=== PATIENT | male | born 1960 | race Caucasian/White ===

== ENCOUNTER → 2016-04-12 | Outpatient (CLI) | payer OTHER, BC ==
[~2016-04-12] MED LIST: ALBUAER19 INH; ATOR-54 PO; DICL-201 PO; FLM4 PO; FLUT1INH INH; GABA-113 PO; GABA800T2 PO; GLC/500 PO; HYDR-5688 PO; IBUP-1050 PO; IPRASOL4 INH; LISI-787 PO; LISI10TA PO; OXYC-57 PO; PHEN-775 PO; PHEN-876 PO; POTA20TA16 PO; PRLSR20 PO; SPRIN/30 INH; TAMS0.4C38 PO; VNTHFA/IN INH
--- NOTE | 2016-04-12 14:44 | DIAGNOSTIC IMAGING REPORT ---
CT SCAN OF THE CHEST WITHOUT IV CONTRAST CLINICAL HISTORY: Bronchitis. Asthma. COMPARISON STUDY: Chest CT dated 10/31/2005. TECHNIQUE: CT scan of the thorax was performed from the thoracic inlet to the upper abdomen. Images are reviewed in the axial, sagittal, and coronal planes. IV contrast was not administered for this examination as per the referring clinician. CT DOSE: 756.50 mGycm FINDINGS: Thyroid: Imaged portions of the thyroid gland are normal in size and attenuation. Thoracic aorta: There is atherosclerotic calcification of the thoracic aorta, which is normal in caliber and demonstrates standard 3-vessel arch anatomy. Heart: The heart is normal in size and there is trace pericardial fluid. The coronary arteries an aortic valve leaflets are densely calcified. The pulmonary trunk is normal in caliber. Lungs and pleural spaces: Emphysematous change is noted. There is no airspace consolidation or pleural effusion. The trachea and central airways are clear. There are scattered calcified granulomas. Mild mucous plugging is noted in the left lower lobe. Mediastinum: There is no mediastinal lymphadenopathy. Calcification containing mediastinal lymph nodes are observed. Shonna: Not well assessed without IV contrast. Axillae: There is no axillary lymphadenopathy. Upper abdomen: There is a tiny hiatal hernia. Calcified granulomas are noted in the spleen. A 2.5 cm cyst is noted in the partially imaged left kidney. Skeletal structures: No lytic or blastic bony lesions are seen. Arthritic changes present in both shoulders. Calcific tendinopathy is noted bilaterally. IMPRESSION: 1. Emphysema. 2. There is no airspace consolidation or pleural effusion. 3. Mild mucous plugging is noted in the left lower lobe. 4. Additional findings as above. Electronically signed by: Paul Reynoso M.D. 04/12/2016 2:43 PM Dictated Date/Time: 04/12/2016 2:38 PM
== END | disposition home or self-care (01) ==
LOC: C.CTS 13:44
PROVIDERS: ATTEND Internal Medicine Pulmonary Disease
DX: J40 Bronchitis, not specified as acute or chronic (principal); J45.909 Unspecified asthma, uncomplicated; R05 Cough; J43.9 Emphysema, unspecified

== ENCOUNTER 2016-09-28 13:56 | Emergency (ER) | payer OTHER ==
[~2016-09-28] VITALS: Ht 170.2 cm; Wt 110.4 kg
[~2016-09-28 13:56] MED LIST changes: -FLM4 PO; -FLUT1INH INH; -GABA800T2 PO; -HYDR-5688 PO; -IBUP-1050 PO; -LISI10TA PO; -OXYC-57 PO; -PHEN-775 PO; -PHEN-876 PO; -PRLSR20 PO; -SPRIN/30 INH; -TAMS0.4C38 PO; -VNTHFA/IN INH
[2016-09-28 14:00] VITALS: TEMP 36.6; Ht 170.2 cm; Wt 110.4 kg
[2016-09-28] MEDS ORDERED: SODIUM CHLORIDE 0.9% 1000ML 1,000 ML IV STA (14:19)
[2016-09-28] MEDS ORDERED: ONDANSETRON INJ 2 MG/ML 2 ML VIAL IV STA (14:19)
[2016-09-28] MEDS ORDERED: MoRPHine SULFATE 10 MG/ML CARP/VIAL IV STA (14:19)
[2016-09-28 14:44] LABS: BASO % 0.6 %; BASO ABS # 0.07 K/uL (0-0.2); COMPLETE YES; EOS % 2.5 %; HEMATOCRIT 47.6 % (42-52); IG% 0.3 %; LYMPH % 22.3 %; LYMPH ABS # 2.63 K/uL (1.2-3.4); MEAN CELL VOLUME 97.3 fL (80-100); MEAN CORPUSCULAR HEMOGLOBIN 33.3 pg (25-34); MEAN CORPUSCULAR HGB CONC 34.2 g/dl (32-36); MEAN PLATELET VOLUME 9.8 fL (7.4-10.4); MONO % 14.9 %; NEUT % 59.4 %; PLATELET COUNT 225 K/uL (130-400); RED BLOOD COUNT 4.89 M/uL (4.7-6.1); WHITE BLOOD COUNT 11.82 K/uL (4.8-10.8)
[2016-09-28 14:48] LABS: URINE APPEARANCE CLEAR (CLEAR); URINE BILIRUBIN NEG (NEG); URINE COLOR YELLOW; URINE EPITHELIAL CELL AUTO 0-5 /lpf (0-5); URINE NITRITE NEG (NEG); URINE PH 6.5 (4.5-7.5); URINE SPECIFIC GRAVITY 1.012 (1.000-1.030); UROBILINOGEN NEG (NEG)
[2016-09-28 14:50] LABS: MANUAL MICROSCOPIC REQUIRED? NO; REVIEW REQ? NO
[2016-09-28 15:00] LABS: BUN/CREATININE RATIO 8.9 (10-20); CALCIUM 9.5 mg/dl (8.5-10.1); CREATININE 1.4 mg/dl (0.60-1.40); POTASSIUM 3.3 mmol/L (3.5-5.1)
--- NOTE | 2016-09-28 15:01 | DIAGNOSTIC IMAGING REPORT ---
ABD/PELVIS WITHOUT FOR STONE HISTORY: 56 years-old Male acute bilateral flank pain with hematuria. COMPARISON: CT abdomen and pelvis 08/27/2012 TECHNIQUE: Multiple axial CT images of the abdomen and pelvis were obtained without contrast. A dose lowering technique was used consistent with the principals of FREDERIC. FINDINGS: Lung bases are generally clear. There is no pneumoperitoneum. Coronary arterial calcifications are noted in addition to aortic annulus calcifications. There is diffuse fatty infiltration of the liver noted along with hepatosteatosis. 9 x 12 mm low attenuating lesion of the inferior right hepatic lobe in a subserosal location is noted, nonspecific and unchanged statistically favoring a cyst or hemangioma. Prior cholecystectomy. Scattered calcifications throughout the splenic parenchyma suggest prior hematogenous granulomatous disease. Pancreas and adrenal glands are unremarkable. Innumerable cystic lesions throughout the kidneys are seen, not well-characterized on this noncontrast study. These findings appear similar from comparison. Hyperattenuating lesion of the interpolar left kidney is again seen. Multiple renal calculi are present bilaterally, largest of which involves the superior pole left kidney, 1.4 x 2.3 cm. There is a linear 4 x 2 x 4 mm calculus of the distal left ureter just a few centimeters proximal to the left ureterovesicular junction causing mild left-sided ureteral dilation. No significant left-sided hydronephrosis. No right-sided ureteral calculi are identified. Urinary bladder is unremarkable. Prostate is mildly prominent in size. There is moderate atherosclerosis of the abdominal aorta. No bulky adenopathy. There is no bowel obstruction. Colon and appendix are unremarkable. The soft tissues are within normal limits. Prior posterior decompression and fusion is seen at L5-S1 with discectomy. IMPRESSION: 1. 4 x 2 x 4 mm linear calculus of the distal left ureter just a few centimeters proximal to the left ureterovesicular junction causes mild left-sided ureteral dilation without significant hydronephrosis. 2. Multiple additional bilateral renal calculi are present. 3. Multiple renal cysts redemonstrated, some of which are mildly complex. No significant change from comparison study. 4. Hepatomegaly with hepatosteatosis. 5. Prior cholecystectomy. The above report was generated using voice recognition software. It may contain grammatical, syntax or spelling errors. Electronically signed by: Oliverio Drake M.D. 09/28/2016 3:00 PM Dictated Date/Time: 09/28/2016 2:54 PM
[2016-09-28] MEDS ORDERED: FLUT1INH INH (15:03)
[2016-09-28] MEDS ORDERED: LISI10TA PO (15:03)
[2016-09-28] MEDS ORDERED: VNTHFA/IN INH (15:03)
[2016-09-28] MEDS ORDERED: SPRIN/30 INH (15:03)
[2016-09-28] MEDS ORDERED: HYDROmorphone INJ 1 MG/ML SYR IV STA (15:18)
[2016-09-28 16:00] VITALS: BP 139/80; PULSE 78; O2SAT 96
[2016-09-28] MEDS ORDERED: HYDR-5688 PO (16:25)
--- NOTE | 2016-09-28 17:00 | EMERGENCY ROOM VISIT NOTE ---
ED Visit Note First contact with patient: 14:04 Chief Complaint: Severe stomach pain. History of Present Illness: Mr. Arce is a 56 year-old white male who ambulates into the ED accompanied by his complaining of left flank pain. Historically patient reports kidney stones with lithotripsy and is status post cholecystectomy and 2 unspecified lumbar back surgeries. Patient reports a acute onset of left flank pain that started approximately 2 hours ago. Since that time the pain has been constant but has slightly waxed and waned in intensity. The pain is currently described as sharp. The pain is radiating throughout the left side of the abdomen and in towards the testicles. Patient has not identified any aggravating or alleviating factors related to the pain. He is taken [id number] anti-inflammatory medications without any relief of his discomfort. Associated with the pain there has been nausea but no vomiting. Patient denies fevers, chills, sweats, skin eruptions, skin color changes, upper respiratory tract symptoms, shortness of breath, chest pain, nausea, vomiting, diarrhea, constipation, rectal bleeding, black/tarry stools, urinary symptoms, hematuria, vaginal bleeding, genital paresthesias, bowel and bladder dysfunction, lower extremity weakness/numbness/tingling. Review of Systems: As noted above in history of present illness. All body systems were reviewed and found to be negative as noted above. Past Medical History: As previously noted, diabetes, hypertension, emphysema, sleep apnea, and status post unspecified knee surgery, parathyroid surgery, hernia surgery. Current Medications: Medications Dose Route/Sig Max Daily Dose Days Date Category Dose Instructions Ventolin Hfa (Albuterol) 200 Puffs/71055 Mcg Aers 2 Puffs INH Q4 PRN 09/28/16 Reported Spiriva Handihaler (Tiotropium [place]) 30 Puff/540 Mcg Aerp 1 Cap INH DAILY 09/28/16 Reported Breo Ellipta (Fluticasone Furoate-Vilanterol) 1 Inh Inh 1 Puff INH DAILY 09/28/16 Reported Prinivil (Lisinopril) 10 Mg Tab 10 Mg PO DAILY 09/28/16 Reported Klor-Con (Potassium Chloride) 20 Meq Tabcr 40 Meq PO DAILY 07/22/14 Reported Zestoretic 20MG/12.5MG (HCTZ/Lisinopril) Tab 1 Tab PO QAM 07/15/14 Reported Glucophage (Metformin Hcl) 500 Mg Tab 500 Mg PO QPM 07/15/14 Reported Glucophage (Metformin Hcl) 500 Mg Tab 250 Mg PO QAM 07/15/14 Reported Neurontin (Gabapentin) 300 Mg Cap 900 Mg PO TID 07/25/13 Reported Duoneb (Ipratropium-Albuterol) 3 Ml Nebu 1 Treatment INH QID PRN 06/13/13 Reported Lipitor (Atorvastatin) 20 Mg Tab 20 Mg PO HS 06/13/13 Reported Allergies to Medications: Fluticasone, Salmeterol. Social History: A shunt is not employed; he lives with his and feels safe in his home environment; he admits to tobacco use and denies alcohol use. Physical Examination: Vital Signs: Date Time Temp Pulse Resp B/P (MAP) Pulse Ox O2 Delivery O2 Flow Rate FiO2 09/28/16 16:00 78 16 139/80 96 Room Air 09/28/16 14:50 91 16 144/88 96 Room Air 09/28/16 14:27 84 09/28/16 14:00 36.6 92 20 170/101 93 Room Air GENERAL: 56-year-old male in mild to moderate distress due to pain, nontoxic- appearing, afebrile and hemodynamically stable. NEUROLOGICAL: Awake, alert and oriented to person, place and time. Answering questions appropriately and following commands. Normal gait. Good hand eye coordination. SKIN: Warm, dry and pink. No soft tissue eruptions or trauma noted. HEENT: Atraumatic and normocephalic. PERRLA. Sclera white and conjunctiva pink. Oral cavity moist and pink. Pharynx is nonerythematous or edematous. Speech normal. No lymphadenopathy. Trachea midline. No jugular venous distention. BACK: No tenderness over the bony spine. Mild left-sided CVA tenderness. THORAX: Lungs sounds are clear to auscultation and equal bilaterally with symmetrical chest wall. No wheezing, rales or rhonchi. No crepitus, tenderness , subcutaneous air or deformities noted. HEART: Regular rate and rhythm. No gallops, rubs or murmurs are appreciated. ABDOMEN: Protuberant and soft with moderate tenderness throughout the left side of the abdomen. Positive bowel sounds in all quadrants. No guarding, rigidity or organomegaly. EXTREMITIES: Moves all extremities well on command and with purpose. All distal neurovascular statuses are intact and equal bilaterally. ED Course: Patient is assessed as noted above. Laboratory Testing: Test 09/28/16 14:24 09/28/16 14:28 Range/Units Urine Color YELLOW Urine Appearance CLEAR CLEAR Urine pH 6.5 4.5-7.5 Urine Specific [place] 1.012 1.000-1.030 Urine Protein 1+ NEG Urine Glucose (UA) NEG NEG Urine Ketones NEG NEG Urine Occult Blood 2+ NEG Urine Nitrite NEG NEG Urine Bilirubin NEG NEG Urine Urobilinogen NEG NEG Urine Leukocyte Esterase NEG NEG Urine WBC (Auto) 1-5 0-5 /hpf Urine RBC (Auto) 0-4 0-4 /hpf Urine Hyaline Casts (Auto) 0 0-5 /lpf Urine Epithelial Cells (Auto) 0-5 0-5 /lpf Urine Bacteria (Auto) NEG NEG White Blood Count 11.82 4.8-10.8 K/uL Red Blood Count 4.89 4.7-6.1 M/uL Hemoglobin 16.3 14.0-18.0 g/dL Hematocrit 47.6 42-52 % Mean Corpuscular Volume 97.3 80-100 fL Mean Corpuscular Hemoglobin 33.3 25-34 pg Mean Corpuscular Hemoglobin Concent 34.2 32-36 g/dl Platelet Count 225 130-400 K/uL Mean Platelet Volume 9.8 7.4-10.4 fL Neutrophils (%) (Auto) 59.4 % Lymphocytes (%) (Auto) 22.3 % Monocytes (%) (Auto) 14.9 % Eosinophils (%) (Auto) 2.5 % Basophils (%) (Auto) 0.6 % Neutrophils # (Auto) 7.03 1.4-6.5 K/uL Lymphocytes # (Auto) 2.63 1.2-3.4 K/uL Monocytes # (Auto) 1.76 0.11-0.59 K/uL Eosinophils # (Auto) 0.30 0-0.5 K/uL Basophils # (Auto) 0.07 0-0.2 K/uL RDW Standard Deviation 50.2 36.4-46.3 fL RDW Coefficient of Variation 14.2 11.5-14.5 % Immature Granulocyte % (Auto) 0.3 % Immature Granulocyte # (Auto) 0.03 0.00-0.02 K/uL Sodium Level 137 136-145 mmol/L Potassium Level 3.3 3.5-5.1 mmol/L Chloride Level 101 98-107 mmol/L Carbon Dioxide Level 29 21-32 mmol/L Anion Gap 7.0 3-11 mmol/L Blood Urea Nitrogen 12 7-18 mg/dl Creatinine 1.40 0.60-1.40 mg/dl Est Creatinine Clear Calc Drug Dose 69.9 ml/min Estimated GFR () 64.6 Estimated GFR (Non- 55.8 BUN/Creatinine Ratio 8.9 10-20 Random Glucose 107 70-99 mg/dl Calcium Level 9.5 8.5-10.1 mg/dl Total Bilirubin 0.4 0.2-1 mg/dl Direct Bilirubin 0.1 0-0.2 mg/dl Aspartate Amino Transf (AST/SGOT) 18 15-37 U/L Alanine Aminotransferase (ALT/SGPT) 52 12-78 U/L Alkaline Phosphatase 131 45-117 U/L Total Protein 7.9 6.4-8.2 gm/dl Albumin 3.8 3.4-5.0 gm/dl Lipase 100 73-393 U/L Noncontrast Abdominal/Pelvic CT: Was reviewed by myself and read by the radiologist and shows 4 x 2 x 4 mm calculus in the distal left ureter causing mild ureteral via dictation without significant hydronephrosis. Multiple additional bilateral renal calculi, multiple renal cysts; no significant change from previous study, hepatomegaly with hepatosteatosis, and prior cholecystectomy. Patient was hydrated with normal saline and initially received 6 mg of morphine IV for pain and 4 mg of Zofran. Patient was reassessed multiple times during his stay in the emergency department. Patient reports ongoing pain and he was given 1 mg of the Dilaudid IV for pain. On reassessment he reported he was feeling much better. Patient's case was reviewed with Dr. Sorto; we agreed on diagnostic approach, treatment, disposition and plan. Patient was educated about today's findings and instructed on his treatment plan ; he verbalizes understanding and agreement with this plan. Clinical Impression: Left ureter calculus. Decision-Making: Initially my differential diagnosis I considered pyelonephritis , ureter calculus, musculoskeletal disorder, constipation, perforated viscus, diverticulitis, testicular torsion and other causes. Disposition: A shunt discharged home in stable condition accompanied by his ; prior to departure he was reassessed and subjectively reported he was feeling better and rated his discomfort 6/10. Plan: Patient was placed on a sliding pain scale of ibuprofen, acetaminophen and [place]. Patient was encouraged to stay well-hydrated with increased clear fluids and strain all urine and collect all stones for analysis. Patient was encouraged to follow-up with his urologist for definitive care and treatment. Patient was encouraged return ED for worsening/uncontrolled pain, fevers, grossly bloody urine, urinary burning or any new/concerning symptoms.
[2016-10-24] MEDS ORDERED: GABA800T2 PO (14:37)
[2016-10-24] MEDS ORDERED: PRLSR20 PO (14:43)
[2016-10-24] MEDS ORDERED: TAMS0.4C38 PO (14:43)
[2016-10-24] MEDS ORDERED: IBUP-1050 PO (14:49)
[2016-10-26] MEDS ORDERED: TAMS0.4C38 PO (11:44)
[2016-10-26] MEDS ORDERED: OXYC-57 PO (11:44)
[2016-10-26] MEDS ORDERED: PHEN-775 PO (11:44)
[2016-10-28] MEDS ORDERED: OXYC-57 PO (13:56)
[2016-10-28] MEDS ORDERED: PHEN-876 PO (13:56)
[2016-10-28] MEDS ORDERED: FLM4 PO (13:56)
[2016-11-09] MEDS ORDERED: PHEN-775 PO (08:58)
[2016-11-09] MEDS ORDERED: FLM4 PO (08:58)
[2016-11-09] MEDS ORDERED: OXYC-57 PO (08:58)
== END 2016-09-28 16:39 | disposition home or self-care (01) ==
LOC: C.EDB 13:57 → C.EDC 16:39
DX: N20.1 Calculus of ureter (principal); N20.0 Calculus of kidney; R16.0 Hepatomegaly, not elsewhere classified; K76.0 Fatty (change of) liver, not elsewhere classified; E11.9 Type 2 diabetes mellitus without complications; I10 Essential (primary) hypertension; J43.9 Emphysema, unspecified; G47.30 Sleep apnea, unspecified; F17.200 Nicotine dependence, unspecified, uncomplicated; Z87.442 Personal history of urinary calculi; Z79.84 Long term (current) use of oral hypoglycemic drugs

== ENCOUNTER → 2016-10-26 | Day surgery (SDC) | payer OTHER ==
[2016-10-24 14:37] VITALS: BMI 37.0
[~2016-10-26] VITALS: Ht 172.7 cm; Wt 111.8 kg
[~2016-10-26] MED LIST changes: -ALBUAER19 INH; +ALBUT/IPRATROP 3MG/0.5MG NEB 3 ML VIAL INH ONE; +ATROPINE SULFATE 0.1 MG/ML 5ML SYR IV PRN; +CEFAZOLIN 3000 MG/65 ML D5W IV SCH; +CONRAY 30% 150ML BOTTLE ONE; +DEXAMETHASONE SOD INJ 4 MG/ML VIAL ONE; -DICL-201 PO; +EpHEDrine SULFATE INJ 50 MG/ML AMP IV PRN; +FENTANYL CITRATE INJ 50 MCG/1 ML 2 ML VIAL ONE; +FLM4 PO; +FLUT1INH INH; -GABA-113 PO; +GABA800T2 PO; +INDOMETHACIN 50 MG SUPP PR ONE; +KETOROLAC TROMETHAMINE 30 MG/ML VIAL ONE; +LACTATED RINGER'S 1000ML 1,000 ML IV SCH; +LIDOCAINE HCL 2% 2 ML VIAL (20MG/ML) ONE; +LISI10TA PO; +MIDAZOLAM HCL 1 MG/ML 2ML VIAL ONE; +ONDANSETRON INJ 2 MG/ML 2 ML VIAL ONE; +OXYC-57 PO; +PHEN-775 PO; +PHEN-876 PO; +PHENYLEPHRINE 100MCG/ML 5ML SYR ONE; +PRLSR20 PO; +PROPOFOL IV EMULSION 10 MG/ML 20 ML VIAL IV ONE; +SPRIN/30 INH; +TAMS0.4C38 PO; +VNTHFA/IN INH
[2016-10-26 07:40] VITALS: BP 123/78; PULSE 90; TEMP 36.6; O2SAT 94; Ht 172.7 cm; Wt 111.8 kg
[2016-10-26 08:20] VITALS: PULSE 80; O2SAT 98
--- NOTE | 2016-10-26 09:43 | History and Physical ---
History & Physical Date Oct 26, 2016. Chief Complaint left ureteral and renal stones History of Present Illness The patient is a 56 year old male with complaints of left ureteral and renal stones. He has failed outpatient medical expulsive therapy. We plan left uscope laser litho basket stone extraction stent. Past Medical/Surgical History Medical Problems: (1) Cerebrovascular disease (2) Chronic back pain (3) Dyslipidemia (4) Essential hypertension (5) Gastroesophageal reflux disease (6) History of adenomatous polyp of colon (7) History of renal calculi (8) Hyperparathyroidism (9) Sciatica (10) Sleep apnea (11) Smoker (12) Umbilical hernia Surgical Problems: (1) Repair of umbilical hernia (2) s/p lumbar decompression / fusion (3) s/p parathyroidectomy (4) s/p repair umbilical hernia (5) Status post cholecystectomy Additional History Hepatic Disease: No Endocrine Disorder: No Kidney Disease: No Hypertension: Yes Heart Disease: Yes Bleeding Tendencies: No Infectious Diseases: No Allergies Coded Allergies: Fluticasone (Unverified Allergy, Unknown, throat and tongue swelling, 10/26) Salmeterol (Unverified Allergy, Unknown, throat and tongue swelling, ) Home Medications Scheduled Atorvastatin (Lipitor), 20 MG PO HS Fluticasone Furoate-Vilanterol (Breo Ellipta), 1 PUFF INH QAM Gabapentin (Neurontin), 800 MG PO TID Lisinopril (Prinivil), 5 MG PO QAM Lisinopril/Hctz (Zestoretic 20MG/12.5MG), 1 TAB PO QAM Metformin Hcl (Glucophage), 250 MG PO QAM Metformin Hcl (Glucophage), 500 MG PO QPM Omeprazole (Prilosec), 20 MG PO QAM Potassium Ext Rel (Klor-Con), 40 MEQ PO QPM Tamsulosin Hcl (Flomax), 0.4 MG PO QAM Tiotropium [place] (Spiriva Handihaler), 1 CAP INH QAM Scheduled PRN Albuterol Hfa (Ventolin Hfa), 2 PUFFS INH Q4 PRN for SOB/Wheezing Ipratropium-Albuterol (Duoneb), 1 TREATMENT INH QID PRN for PRN Physical Examination Skin: warm/dry Eyes: normal inspection Neck: trachea midline Respiratory/Chest: lungs clear, + pertinent finding (quiet breath sounds, + ) Cardiovascular: regular rate, rhythm, no edema Abdomen / GI: normal bowel sounds Addiitonal Comments: ne edema on extremities Diagnosis left ureteral and renal stones plan left ureteroscopy laser lithotripsy basket stone extraction stent placement 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
--- NOTE | 2016-10-26 11:27 | DIAGNOSTIC IMAGING REPORT ---
KUB CLINICAL HISTORY: LT CYSTO/LASER/STENT stent placement TECHNIQUE: Image intensifier COMPARISON STUDY: None FINDINGS: Image intensifier was used for placement of a left ureteral stent IMPRESSION: Left ureteral stent placement with image intensifier support The above report was generated using voice recognition software. It may contain grammatical, syntax or spelling errors. Electronically signed by: Esequiel Biggs M.D. 10/26/2016 11:26 AM Dictated Date/Time: 10/26/2016 11:26 AM
[2016-10-26] MEDS: FENTANYL CITRATE INJ 50 MCG/1 ML 2 ML VIAL IV PRN ×4 (11:41→11:57)
--- NOTE | 2016-10-26 11:43 | [facility] Operative Report ---
Operative Report Operative Date Oct 26, 2016. Pre-Operative Diagnosis Left ureteral and Renal Stones Post-Operative Diagnosis Left ureteral and Renal Stones Procedure(s) Performed Cystoscopy; Left Ureteroscopy; Laser Lithotripsy; Basket Stone Extraction; Stent Placement Surgeon Dr. Lynette Case Open End Spinning Operator Surgeon(s) none Estimated Blood Loss 2mL Findings flat cornflake shaped stone in left distal ureter, 3 large stones in left kidney Specimens A: Left Ureteral Stone Drains 6 fr 24 centimeter double J stent Anesthesia LMA Complication(s) None Disposition Recovery Room / PACU Indications obstructing left distal stones and several left renal stones Description of Procedure Patient was given general LMA anesthesia and placed in lithotomy position. His genitals were prepped and draped in sterile fashion. Time out held with team. I placed a 21 fr rigid cystoscope to bladder. The urethra is unremarkable. The prostate is moderately enlarged. The UOs are normal. I placed a stiff wire up left ureter to left kidney and do not see distal stone. I calibrated left UO with gentle passage of dual lumen into distal ureter. I then passed a bentson wire into kidney. I placed the flex ureteroscope over the green wire to distal ureter. I found his distal ureteral stone. It is shaped like a cornflake. We basket extracted it whole with 2.4 fr zero tip basket and dropped it in the bladder. I then replaced the bentson wire and placed a 12/14 36 centimeter ureteral access sheath to mid ureter. I then passed flex ureteroscope into kidney and used 200 micron holmium laser fiber to break 3 large stones (2 upper kidney, one lower kidey) into dozens of pieces. There seem to be some collections of milk of calcium in kidney as irrigant would turn very cloudy during laering now and again. I removed ureteroscope and sheath and placed a 24 centimeter 6 Fr double J stent easily. I rinsed the ureteral stone out of bladder and sent for analysis. I left bladder empty and concluded case. He transferred to recovery under my escort, in stable condition. Plan: Home today Pyridium for dysuria x 3 days flomax daily oral pain meds as needed repeat left ureteroscopy to remove stone fragments in 2 weeks ASA 3 clean contaminated case 20 seconds fluoro ancef antibiotic weatherization and housing inspector I attest to the content of the Intraoperative Record and any orders documented therein. Any exceptions are noted below.
--- NOTE | 2016-10-26 11:47 | Discharge Instructions ---
Discharge Instructions Date of Service Oct 26, 2016. Admission Reason for Admission: Kidney Stone Discharge Discharge Diagnosis / Problem: left kidney stones and ureteral stone Discharge Goals Goal(s): Decrease discomfort, Improve disease control Activity Recommendations Activity Limitations: resume your previous activity Lifting Limitations: none Exercise/Sports Limitations: none May Resume Sexual Activity: when tolerated Shower/Bathe: no limitations Driving or Machine Use: resume 1 day after discharge . Instructions / Follow-Up Instructions / Follow-Up in 2 weeks for more stone surgery left side Discharge Diet Recommended Diet: Regular Diet Procedures Procedures Performed: Cystoscopy; Left Ureteroscopy; Laser Lithotripsy; Basket Stone Extraction; Stent Placement Pending Studies Studies pending at discharge: no Medical Emergencies . Who to Call and When: Medical Emergencies: If at any time you feel your situation is an emergency, please call 911 immediately. . Non-Emergent Contact Non-Emergency issues call your: Urologist ([phone]) Call Non-Emergent contact if: temperature is above 100.5, your pain is not controlled . . "Provider Documentation" section prepared by Lucia Case. . VTE Core Measure Inpt VTE Proph given/why not?: SCD's [place] Drug Monitoring Program Search Results: patient reviewed within database, no issues identified
--- NOTE | 2016-10-26 12:12 | Anesthesiology Progress Note ---
Anesthesia Post Op Note Date & Time Oct 26, 2016 at 12:12 Vital Signs Pain Intensity: 3 Vital Signs Past 12 Hours Date Time Temp Pulse Resp B/P (MAP) Pulse Ox O2 Delivery O2 Flow Rate FiO2 10/26/16 12:05 66 18 141/86 97 Room Air 10/26/16 11:55 75 18 140/83 97 Room Air 10/26/16 11:45 69 18 127/71 100 Oxymask 10 10/26/16 11:35 36.8 78 18 134/73 100 Oxymask 10 10/26/16 11:26 36.8 85 18 137/78 94 Oxymask 10 10/26/16 07:40 36.6 90 18 123/78 (93) 94 Room Air Notes Mental Status: alert / awake / arousable, participated in evaluation Pt Amnestic to Procedure: Yes Nausea / Vomiting: adequately controlled Pain: adequately controlled Airway Patency, RR, SpO2: stable & adequate BP & HR: stable & adequate Hydration State: stable & adequate Anesthetic Complications: no major complications apparent
[2016-10-26 12:20] VITALS: BP 137/71; PULSE 70; TEMP 36.2; O2SAT 96
[2016-10-26 12:50] VITALS: BP 126/77; PULSE 76; TEMP 36.6; O2SAT 96
[2016-10-26 13:20] VITALS: BP 136/78; PULSE 81; TEMP 36.6; O2SAT 97
== END | disposition home or self-care (01) ==
LOC: C.ACU 07:22
PROVIDERS: ATTEND Urology
DX: N20.1 Calculus of ureter (principal); N20.0 Calculus of kidney; I10 Essential (primary) hypertension; G47.30 Sleep apnea, unspecified; F17.200 Nicotine dependence, unspecified, uncomplicated; K21.9 Gastro-esophageal reflux disease without esophagitis; E21.3 Hyperparathyroidism, unspecified; E78.5 Hyperlipidemia, unspecified; Z79.84 Long term (current) use of oral hypoglycemic drugs; Z87.442 Personal history of urinary calculi; J43.9 Emphysema, unspecified

== ENCOUNTER → 2016-11-09 | Day surgery (SDC) | payer OTHER ==
[2016-10-28 14:00] VITALS: BMI 37.0
[~2016-11-09] VITALS: Ht 172.7 cm; Wt 111.8 kg
[~2016-11-09] MED LIST changes: -ALBUT/IPRATROP 3MG/0.5MG NEB 3 ML VIAL INH ONE; +BELLADONNA/OPIUM SUPP 60 MG SUPP PR ONE; +CEFAZOLIN 2000 MG/60 ML D5W IV SCH; -CEFAZOLIN 3000 MG/65 ML D5W IV SCH; -DEXAMETHASONE SOD INJ 4 MG/ML VIAL ONE; -EpHEDrine SULFATE INJ 50 MG/ML AMP IV PRN; +FENTANYL CITRATE INJ 50 MCG/1 ML 2 ML VIAL IV PRN; +HYDROmorphone INJ 1 MG/ML SYR IV PRN; -INDOMETHACIN 50 MG SUPP PR ONE; +LABETALOL HCL IV 5 MG/ML 20ML IV PRN; +ONDANSETRON INJ 2 MG/ML 2 ML VIAL IV PRN; +PHENYLEPHRINE 100MCG/ML 5ML SYR IV PRN; -PHENYLEPHRINE 100MCG/ML 5ML SYR ONE; +PHENYLEPHRINE HCL INJ 10 MG/ML VIAL ONE; +PROMETHAZINE HCL INJ 12.5 MG in SODIUM CHLORIDE 0.9% 50ML 50 ML IV PRN; +SODIUM CHLORIDE 0.9% INJ 10 ML VIAL ONE; -TAMS0.4C38 PO
[2016-11-09 05:58] VITALS: BP 103/68; PULSE 93; TEMP 36.6; O2SAT 97; Ht 172.7 cm; Wt 111.8 kg
--- NOTE | 2016-11-09 07:09 | History and Physical ---
History & Physical Date Nov 09, 2016. Chief Complaint left kidney stones History of Present Illness The patient is a 56 year old male with complaints of left kidney stones. He is here for the second part of the stone removal on his left side. He has tolerated the stent poorly. KUB done last week shows stent in good position but many fragments along the upper ureter and in the kidney. Past Medical/Surgical History Medical Problems: (1) Cerebrovascular disease (2) Chronic back pain (3) Dyslipidemia (4) Essential hypertension (5) Gastroesophageal reflux disease (6) History of adenomatous polyp of colon (7) History of renal calculi (8) Hyperparathyroidism (9) Sciatica (10) Sleep apnea (11) Smoker (12) Umbilical hernia Surgical Problems: (1) Repair of umbilical hernia (2) s/p lumbar decompression / fusion (3) s/p parathyroidectomy (4) s/p repair umbilical hernia (5) Status post cholecystectomy Allergies Coded Allergies: Fluticasone (Unverified Allergy, Unknown, throat and tongue swelling, 11/09) Salmeterol (Unverified Allergy, Unknown, throat and tongue swelling, ) Home Medications Scheduled Atorvastatin (Lipitor), 20 MG PO HS Fluticasone Furoate-Vilanterol (Breo Ellipta), 1 PUFF INH QAM Gabapentin (Neurontin), 800 MG PO TID Lisinopril (Prinivil), 5 MG PO QAM Lisinopril/Hctz (Zestoretic 20MG/12.5MG), 1 TAB PO QAM Metformin Hcl (Glucophage), 250 MG PO QAM Metformin Hcl (Glucophage), 500 MG PO QPM Omeprazole (Prilosec), 20 MG PO QAM Potassium Ext Rel (Klor-Con), 40 MEQ PO QPM Tamsulosin HCl (Tamsulosin HCl), 1 CAP PO QAM Tiotropium [place] (Spiriva Handihaler), 1 CAP INH QAM Scheduled PRN Albuterol Hfa (Ventolin Hfa), 2 PUFFS INH Q4 PRN for SOB/Wheezing Ipratropium-Albuterol (Duoneb), 1 TREATMENT INH QID PRN for PRN Physical Examination Skin: warm/dry Eyes: normal inspection Neck: supple, trachea midline Respiratory/Chest: no respiratory distress, + pertinent finding (distant breth sounds. ) Cardiovascular: regular rate, rhythm Abdomen / GI: non tender Extremities: normal inspection, + pertinent finding (no edema no calf tenderness) Neurologic/Psych: alert, oriented x 3 Diagnosis left renal and ureteral stone fragments ASA Classification: ASA Class III Plan of Treatment plan cysto left ureteroscopy laser lithotripsy basket stone extraction stent exchange. ancef vehicle modification technician
--- NOTE | 2016-11-09 08:56 | [facility] Operative Report ---
Operative Report Operative Date Nov 09, 2016. Pre-Operative Diagnosis Left ureteral and renal stones Post-Operative Diagnosis same as pre-operative Procedure(s) Performed Cystoscopy, Left Ureteroscopy, Laser Lithotripsy, Basket Stone Extraction; Stent Exchange Surgeon Dr. Lucia Case Electrical Controls Assembler Surgeon(s) none Estimated Blood Loss 5ml Findings radio-opaque stones in left distal and upper ureter, small stones in kidney and a radio-opaque 5mm stone in the left lateral mid kidney apparently in a non visualized caliceal diverticulum. Fluids 1300mL Specimens Specimen A: Left ureteral stones Drains 6 Fr 24 centimeter double j stent Anesthesia LMA Complication(s) None Disposition Recovery Room / PACU Indications large left renal stones fragmented 2 weeks ago. We plan to complete stone removal today. Description of Procedure Patient was given general LMA anesthesia and placed in lithotomy position. His genitals were prepped and draped in sterile fashion. Time out held with team. I placed a 21 fr rigid cystoscope to bladder. The urethra is unremarkable. The prostate is moderately enlarged. The UOs are normal. I grasped left stent tip sand removed stent completely. I placed a stiff wire up left ureter and cannot get passed the cluster of stones in the upper ureter. I passed a 5 fr open ended and switched to a road runner which passed easily. I then passed the 5 fr to kidney and placed stiff wire to left kidney. I passed the flexible ureteroscope into the distal ureter along side the stiff wire a dozen times and removed all the distal ureteral fragments with a 1.9 fr zero tip basket. I then passed a road runner wire into kidney. I placed a 12/14 fr 36 centimeter ureteral access sheath over the road runner to the top of scarum. It passed well. I then passed the flexible ureteroscope into upper ureter and used a 2000 micron holmium laser to fragment the larger left upper ureteral stones. I used the 1.9 basket to remove all the upper ureteral fragments. I then examined the kidney and removed about a dozen pieces. One medial inferior calyx has some small stones I cant reach due to limits of deflextion of scope but they look to be easily passed. I removed ureteroscope and sheath slowly ensuring the ureter is stone free. I placed a 24 centimeter 6 Fr double J stent easily. I left bladder empty and concluded case. He transferred to recovery under my escort, in stable condition. Plan: Home today Pyridium for dysuria x 3 days flomax daily oral pain meds as needed stent removal in 1 week in office ASA 3 clean contaminated case 49 seconds fluoro ancef antibiotic best second jobs I attest to the content of the Intraoperative Record and any orders documented therein. Any exceptions are noted below.
--- NOTE | 2016-11-09 09:01 | Discharge Instructions ---
Discharge Instructions Date of Service Nov 09, 2016. Admission Reason for Admission: Kidney Stone Discharge Discharge Diagnosis / Problem: left kidney and ureteral stones Discharge Goals Goal(s): Decrease discomfort, Improve disease control Activity Recommendations Activity Limitations: resume your previous activity Lifting Limitations: none Exercise/Sports Limitations: none May Resume Sexual Activity: when tolerated Shower/Bathe: no limitations Driving or Machine Use: resume 1 day after discharge . Instructions / Follow-Up Instructions / Follow-Up urine will be bloody for days return to ER for fever over 100F Lie on your right side after drinking lots of fluid to float out the remaining tiny stone pieces left kidney. Have someone tab over the kidney to shake them loose. we will remove stent in about a week. Discharge Diet Recommended Diet: Regular Diet Fluid Restriction: None Procedures Procedures Performed: Cystoscopy, Left Ureteroscopy, Laser Lithotripsy, Basket Stone Extraction; Stent Exchange Pending Studies Studies pending at discharge: no Medical Emergencies . Who to Call and When: Medical Emergencies: If at any time you feel your situation is an emergency, please call 911 immediately. . Non-Emergent Contact Non-Emergency issues call your: Urologist ([phone]) Call Non-Emergent contact if: temperature is above 100.5 . . "Provider Documentation" section prepared by Lucia Case. . VTE Core Measure Inpt VTE Proph given/why not?: SCD's [place] Drug Monitoring Program Search Results: patient reviewed within database, no issues identified
--- NOTE | 2016-11-09 09:23 | Anesthesiology Progress Note ---
Anesthesia Post Op Note Date & Time Nov 09, 2016 at 09:23 Vital Signs Pain Intensity: 0 Vital Signs Past 12 Hours Date Time Temp Pulse Resp B/P (MAP) Pulse Ox O2 Delivery O2 Flow Rate FiO2 11/09/16 09:15 69 16 125/83 100 Oxymask 10 11/09/16 09:05 76 16 143/87 98 Oxymask 10 11/09/16 08:57 36.2 87 16 123/91 95 Oxymask 10 11/09/16 05:58 36.6 93 18 103/68 (80) 97 Room Air Notes Mental Status: alert / awake / arousable, participated in evaluation Pt Amnestic to Procedure: Yes Nausea / Vomiting: adequately controlled Pain: adequately controlled Airway Patency, RR, SpO2: stable & adequate BP & HR: stable & adequate Hydration State: stable & adequate Anesthetic Complications: no major complications apparent
[2016-11-09 10:05] VITALS: BP 108/69; PULSE 69; TEMP 36.2; O2SAT 98
[2016-11-09 10:30] VITALS: BP 119/75; PULSE 68; O2SAT 99
[2016-11-09 11:20] VITALS: BP 120/78; PULSE 70; TEMP 36.2; O2SAT 99
--- NOTE | 2016-11-09 14:29 | DIAGNOSTIC IMAGING REPORT ---
KUB HISTORY: CYSTO, LT, LITHOTRIPSY FLUOROSCOPY TIME: 49 seconds FINDINGS: 7 fluoroscopic spot images were submitted for review. Initial images demonstrate a catheter within the left ureter placed within a retrograde fashion. This is followed by lithotripsy of a left renal stone and placement of a ureteral stent. IMPRESSION: Fluoroscopy provided for left sided lithotripsy and placement of a left ureteral stent.. Electronically signed by: Parveen Montoya M.D. 11/09/2016 2:28 PM Dictated Date/Time: 11/09/2016 2:26 PM
== END | disposition home or self-care (01) ==
LOC: C.ACU 05:30
PROVIDERS: ATTEND Urology
DX: N20.2 Calculus of kidney with calculus of ureter (principal); I10 Essential (primary) hypertension; E78.5 Hyperlipidemia, unspecified; G47.30 Sleep apnea, unspecified; E21.3 Hyperparathyroidism, unspecified; F17.200 Nicotine dependence, unspecified, uncomplicated; Z86.010 Personal history of colon polyps; Z87.442 Personal history of urinary calculi; Z90.49 Acquired absence of other specified parts of digestive tract

== ENCOUNTER 2016-12-25 19:17 | Emergency (ER) | payer OTHER ==
[~2016-12-25] VITALS: Ht 162.6 cm; Wt 112.8 kg
[~2016-12-25 19:17] MED LIST changes: -ATROPINE SULFATE 0.1 MG/ML 5ML SYR IV PRN; -BELLADONNA/OPIUM SUPP 60 MG SUPP PR ONE; -CEFAZOLIN 2000 MG/60 ML D5W IV SCH; -CONRAY 30% 150ML BOTTLE ONE; -FENTANYL CITRATE INJ 50 MCG/1 ML 2 ML VIAL IV PRN; -FENTANYL CITRATE INJ 50 MCG/1 ML 2 ML VIAL ONE; -HYDROmorphone INJ 1 MG/ML SYR IV PRN; -KETOROLAC TROMETHAMINE 30 MG/ML VIAL ONE; -LABETALOL HCL IV 5 MG/ML 20ML IV PRN; -LACTATED RINGER'S 1000ML 1,000 ML IV SCH; -LIDOCAINE HCL 2% 2 ML VIAL (20MG/ML) ONE; -MIDAZOLAM HCL 1 MG/ML 2ML VIAL ONE; -ONDANSETRON INJ 2 MG/ML 2 ML VIAL IV PRN; -ONDANSETRON INJ 2 MG/ML 2 ML VIAL ONE; -PHEN-775 PO; -PHEN-876 PO; -PHENYLEPHRINE 100MCG/ML 5ML SYR IV PRN; -PHENYLEPHRINE HCL INJ 10 MG/ML VIAL ONE; -PROMETHAZINE HCL INJ 12.5 MG in SODIUM CHLORIDE 0.9% 50ML 50 ML IV PRN; -PROPOFOL IV EMULSION 10 MG/ML 20 ML VIAL IV ONE; -SODIUM CHLORIDE 0.9% INJ 10 ML VIAL ONE
[2016-12-25 19:20] VITALS: TEMP 36.4; Ht 162.6 cm; Wt 112.8 kg
[2016-12-25] MEDS ORDERED: KETOROLAC TROMETHAMINE 60 MG/2 ML VIAL IM STA (19:40)
[2016-12-25] MEDS ORDERED: FLEXERIL HOME PACK 10 MG VIAL PO ONE (19:45)
[2016-12-25] MEDS ORDERED: KETOROLAC TROMETHAMINE 30 MG/ML VIAL ONE (19:53)
--- NOTE | 2016-12-25 20:24 | DIAGNOSTIC IMAGING REPORT ---
RIGHT SHOULDER 3 VIEWS HISTORY: right shoulder pain COMPARISON: None. FINDINGS: There is no fracture or dislocation. The right clavicle is intact. Moderate AC joint arthrosis. Mild osteoarthritis at the glenohumeral joint. A few small calcifications at the supraspinatus tendon. No radiopaque foreign bodies. IMPRESSION: 1. No acute fracture or dislocation within the right shoulder. 2. Supraspinatus calcific tendinitis. 3. Degenerative changes as described above. Electronically signed by: Parveen Montoya M.D. 12/25/2016 8:23 PM Dictated Date/Time: 12/25/2016 8:22 PM
--- NOTE | 2016-12-25 20:40 | EMERGENCY ROOM VISIT NOTE ---
ED Visit Note First contact with patient: 19:30 Patient was seen by our PA/LIBRARIAN ASSISTANT. I was involved in the patient's care and did evaluate the patient myself. I was involved in the care throughout the ER stay. The patient presents with right shoulder pain. Films show possible calcific tendinitis. The patient will be treated conservatively and will see orthopedics in a few days. If not improving, he may require a shoulder joint injection through the orthopedic services.
[2016-12-25] MEDS ORDERED: CYCL10TA6 PO (20:41)
--- NOTE | 2016-12-25 20:43 | EMERGENCY ROOM VISIT NOTE ---
ED Visit Note First contact with patient: 19:30 CHIEF COMPLAINT: Right shoulder pain HISTORY OF PRESENT ILLNESS: This 56-year-old male patient presents to the emergency department, ambulatory, complaining of pain in the right shoulder again spontaneously. The patient states approximately 5 days ago, he awoke in the morning complaining of significant severe right shoulder pain. He states this has happened in the past from sleeping incorrectly. He has been taking ibuprofen and Tylenol to help with the pain, without relief. There is limitation of motion of the arm because of the pain. The pain is moderate, constant and increases with motion of the hand and arm. The patient states the pain is constant, sharp, and 10/10. No previous significant previous shoulder disease or injury. No numbness or tingling. No neck or back pain. No chest pain or shortness of breath. No abdominal pain or nausea/vomiting. No cough. REVIEW OF SYSTEMS: A 6 system review of systems was performed with positives and pertinent negatives in the HPI. ALLERGIES: Advair MEDICATIONS: Albuterol, atorvastatin, Breo, gabapentin, DuoNeb, lisinopril, HCTZ , metformin, omeprazole, potassium, tamsulosin, Spiriva PMH: Hypertension, diabetes, COPD, chronic kidney disease SOCIAL HISTORY: Patient lives locally with family. He denies drug, alcohol use. The patient smokes 1-2 packs of cigarettes per day. PHYSICAL EXAM: Vital Signs: Reviewed nurse's notes, vital signs stable. GENERAL : This is a 56-year-old obese white male, in no acute distress, but appears to be in pain, well-developed, well-nourished. MUSCULOSKELETAL: There is no deformity in the contour of the right shoulder and there are no kevin deformities noted. There is no sulcus sign. There is tenderness over the entire shoulder region, which is difficult to localize. The patient's range of motion is severely limited due to pain. Supraspinatus strength 5/5. There is no clavicle tenderness. No tenderness of the humerus, elbow, wrist, or hand. Science Professor strength 5/5. Radial pulse 2+. NECK: No tenderness to palpation over the cervical spine. HEART: Regular rate and rhythm without murmurs gallops or rubs. LUNGS: Clear to auscultation bilaterally without wheezes, rales or rhonchi. No accessory muscle use. No retractions. NEURO: The patient is alert and oriented to person, place, and time. Normal sensation to light and sharp touch. Capillary refill less than 2 seconds. RADIOLOGY: X-Ray Right Shoulder: RIGHT SHOULDER 3 VIEWS HISTORY: right shoulder pain COMPARISON: None. FINDINGS: There is no fracture or dislocation. The right clavicle is intact. Moderate AC joint arthrosis. Mild osteoarthritis at the glenohumeral joint. A few small calcifications at the supraspinatus tendon. No radiopaque foreign bodies. IMPRESSION: 1. No acute fracture or dislocation within the right shoulder. 2. Supraspinatus calcific tendinitis. 3. Degenerative changes as described above. Electronically signed by: Parveen Montoya M.D. 12/25/2016 8:23 PM Dictated Date/Time: 12/25/2016 8:22 PM EMERGENCY DEPARTMENT COURSE: I examined the patient. An X-ray of the right shoulder was reviewed by myself and radiologist and shows calcific tendinitis of the supraspinatus tendon. The patient was given 30 mg Toradol IM and did note slight improvement in his symptoms. He was given a home pack of Flexeril to help with any muscle spasms. The patient was encouraged to follow up outpatient with orthopedics. I did speak with Dr. Addison regarding the patient' s symptoms and x-ray. He did recommend an arm sling as well as conservative management. Dr. Addison did see and evaluate the patient independently. Discharge instructions were reviewed and the patient was discharged home in good condition. I attest that I have personally reviewed the patient's current medication list. Patient was found to have normal blood pressure on screening and does not require follow-up. DIFFERENTIAL DIAGNOSIS: Fracture, contusion, sprain, strain, tendonitis, malignancy, and others DIAGNOSIS: Calcific tendinitis of the right shoulder Problem List Medical Problems: (1) Cerebrovascular disease Permanent Comment: MRI 06/14/10 small vessel ischemic changes noted Status: Chronic (2) Chronic back pain Status: Chronic (3) Dyslipidemia Status: Chronic (4) Essential hypertension Status: Chronic (5) Gastroesophageal reflux disease Status: Chronic (6) History of adenomatous polyp of colon Status: Chronic (7) History of renal calculi Status: Chronic (8) Hyperparathyroidism Permanent Comment: parathyroid adenoma- resected Status: Resolved (9) Sciatica Status: Chronic (10) Sleep apnea Permanent Comment: can't tolerate CPAP/BiPAP Status: Chronic (11) Smoker Status: Chronic (12) Umbilical hernia Status: Resolved Surgical Problems: (1) Repair of umbilical hernia Status: Chronic (2) s/p lumbar decompression / fusion Status: Chronic (3) s/p parathyroidectomy Permanent Comment: [facility] 07/22/11 Dr. Rose Status: Chronic (4) s/p repair umbilical hernia Status: Chronic (5) Status post cholecystectomy Permanent Comment: Dr. Diamond 2012 Status: Chronic Current/Historical Medications Scheduled Atorvastatin (Lipitor), 20 MG PO HS Fluticasone Furoate-Vilanterol (Breo Ellipta), 1 PUFF INH QAM Gabapentin (Neurontin), 800 MG PO TID Lisinopril (Prinivil), 5 MG PO QAM Lisinopril/Hctz (Zestoretic 20MG/12.5MG), 1 TAB PO QAM Metformin Hcl (Glucophage), 250 MG PO QAM Metformin Hcl (Glucophage), 500 MG PO QPM Omeprazole (Prilosec), 20 MG PO QAM Potassium Ext Rel (Klor-Con), 40 MEQ PO QPM Tamsulosin HCl (Tamsulosin HCl), 1 CAP PO QAM Tiotropium [place] (Spiriva Handihaler), 1 CAP INH QAM Scheduled PRN Albuterol Hfa (Ventolin Hfa), 2 PUFFS INH Q4 PRN for SOB/Wheezing Cyclobenzaprine Hcl (Flexeril), 1 TAB PO TID PRN for Muscle Spasms Ipratropium-Albuterol (Duoneb), 1 TREATMENT INH QID PRN for PRN Oxycodone/Acetaminophen 5MG/325MG (Percocet 5MG/325MG), 1 TABLET PO Q6H PRN for Pain Allergies Coded Allergies: Fluticasone (Unverified Allergy, Unknown, throat and tongue swelling, 11/09) Salmeterol (Unverified Allergy, Unknown, throat and tongue swelling, ) Vital Signs Date Time Temp Pulse Resp B/P (MAP) Pulse Ox O2 Delivery O2 Flow Rate FiO2 12/25/16 19:20 36.4 103 20 162/96 93 Room Air Medications Administered Medications (Trade) Dose Ordered Sig/Edith Route Start Time Stop Time Status Last Admin Dose Admin Cyclobenzaprine HCl (FLEXERIL 10MG Home Pack) 1 homepack UD ONCE PO 12/25/16 19:45 12/25/16 19:46 DC 12/25/16 19:55 1 HOMEPACK Ketorolac Tromethamine (Toradol Inj) 30 mg STK-MED ONCE .ROUTE 12/25/16 19:53 12/25/16 19:54 DC 12/25/16 19:55 30 MG Departure Information Impression Primary Impression: Right shoulder pain Additional Impressions: Muscle spasm of right shoulder Calcific tendonitis of right shoulder Dispostion Home / Self-Care Condition GOOD Prescriptions Cyclobenzaprine Hcl (FLEXERIL) 10 Mg Tab 1 TAB PO TID Y for Muscle Spasms, #12 TAB Prov: Jodie Cortes PA-C 12/25/16 Referrals Effie Hendricks D.O. (PCP) [facility] Patient Instructions ED Tendinitis Calcific, [facility] Additional Instructions You have been treated in the Emergency Department for Shoulder Pain. For pain control, you can use the following [id number] medicines (if >12 yo): Ibuprofen(Motrin, Advil) may be used for fever or pain. Use 400-600mg every six hours as needed. Take with food. Avoid using more than 2400mg or whatever maximum your doctor has given you, in a 24 hour period. Do not use 2400mg per day for more than three consecutive days without physician direction. Prolonged inappropriate use can lead to stomach upset or ulcers. (AND/OR) Acetaminophen(Tylenol) may be used for fever or pain. Use 500-1000mg every six hours as needed. Avoid using more than 3000mg in a 24 hour period. You have been prescribed Flexeril (cyclobenzaprine) 1 tabs orally, three times per day. Do NOT exceed 30 mg (3 tabs) per day. Take your first dose at bedtime as it can make you drowsy. Always take all medications as prescribed. If this is a recent injury (<24 hrs), ice can be applied to the area of pain for the first 3 days to help decrease pain and inflammation. You have been provided the number for an Orthopaedic Surgeon. You should call this number as soon as possible to establish a follow-up visit from today's Emergency Department visit. Use the arm sling for comfort. Return to the Emergency Department if your current symptoms worsen despite treatment course outlined above, or if you develop any of the following symptoms : intractable pain despite aforementioned treatment course or new onset of numbness or tingling of the arm. Problem Qualifiers Primary Impression: Right shoulder pain Chronicity: acute Qualified Codes: M25.511 - Pain in right shoulder
[2016-12-25] MEDS ORDERED: OMEP20CA9 PO (20:49)
[2016-12-25] MEDS ORDERED: TIOT1SPR INH (20:49)
[2016-12-25] MEDS ORDERED: GLC500 PO (20:49)
[2016-12-25] MEDS ORDERED: FLUT1INH7 INH (20:49)
[2016-12-25] MEDS ORDERED: LPT/20 PO (20:49)
[2016-12-25] MEDS ORDERED: POTA20TA13 PO (20:49)
[2016-12-25] MEDS ORDERED: NRN800 PO (20:49)
[2016-12-25] MEDS ORDERED: LISI-461 PO (20:49)
[2016-12-25 20:53] VITALS: BP 161/83; PULSE 100; O2SAT 94
== END 2016-12-25 20:54 | disposition home or self-care (01) ==
LOC: C.EDB 19:18 → C.EDD 20:54
DX: M25.511 Pain in right shoulder (principal); M75.31 Calcific tendinitis of right shoulder; M62.838 Other muscle spasm; I12.9 Hypertensive chronic kidney disease with stage 1 through stage 4 chronic kidney disease, or unspecified chronic kidney disease; E11.9 Type 2 diabetes mellitus without complications; J44.9 Chronic obstructive pulmonary disease, unspecified; N18.9 Chronic kidney disease, unspecified; F17.210 Nicotine dependence, cigarettes, uncomplicated; E78.5 Hyperlipidemia, unspecified; K21.9 Gastro-esophageal reflux disease without esophagitis; Z87.442 Personal history of urinary calculi; Z79.899 Other long term (current) drug therapy

== ENCOUNTER 2017-01-09 08:20 | Day surgery (SDC) | payer OTHER ==
--- NOTE | 2016-12-13 09:52 | HISTORY & PHYSICAL EXAMINATION ---
DATE OF ADMISSION: 12/21/2016 PRIMARY CARE PHYSICIAN: Dr. Effie Hendricks. HISTORY OF PRESENT ILLNESS: This is a 56-year-old male who is followed in the outpatient office for history of chronic bronchitis and pulmonary emphysema. Other relevant past medical history includes obstructive sleep apnea (on CPAP with oxygen, noncompliant with use), CKD 3, DM2, left lower extremity deep venous thrombosis (childhood/traumatic), and obesity. He is allergic to Advair. He is a current smoker, 2 packs per day x41 years with history of secondhand exposure. 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 The patient was initially seen in the outpatient office March 2016 with history of recurrent bronchitis symptomatic of cough and wheeze lasting several weeks in duration alleviated temporarily with steroid and antibiotic. In between these episodes, he was quite active with activity such as chopping wood without any limiting respiratory symptoms. Symptoms improved partially with Breo then gradually returned and progressed in the form of daily nonproductive cough which has been present since the winter of 2015. He denies any association with meals, body position, or activity. Over the past 1 year, he has been prescribed several rounds of antibiotic and steroids (azithromycin and levofloxacin). Additionally, he has been prescribed Breo 200/25, Incruse, and then more recently Spiriva. Symptoms are temporarily alleviated again with antibiotic and steroids; however, his nonproductive cough and wheeze persists without associated fevers, chills, reflux, or sinus symptoms. He does use a nebulizer 1 time daily. He denies history of bronchoscopy completed in the past. CT of the chest April 2016 described emphysematous changes without consolidation or effusion. There were scattered calcified granulomas and mild mucus plugging in the left lower lobe. No adenopathy. Calcification containing mediastinal lymph nodes were observed with calcified granulomas in the spleen. PFTs April 2014 was consistent with mild small airway obstruction. Normal volumes and DLCO were preserved. On exam/interview in the outpatient office he reported that his symptoms remained status quo temporarily improved on antibiotic and steroids then recurrent. On his last visit, he had been doing well, but he had discontinued using his CPAP feeling that this was provocative of his breathing. His former sleep medicine physician was Dr. Link who is no longer practicing in the area. He denied any associated chest pain, fevers or chills. PAST MEDICAL HISTORY: 1. Chronic bronchitis. 2. Chronic GERD. 3. CKD 3. 4. Depression. 5. Dyslipidemia. 6. Hernia. 7. Hyperparathyroidism. 8. Hypertension. 9. Obesity. 10. Pulmonary emphysema. 11. Sleep apnea. 12. Vitamin D deficiency. 13. Left lower extremity DVT. PAST SURGICAL HISTORY: Cholecystectomy. FAMILY HISTORY: 1. Lung disease. 2. Malignant neoplasm of the breast. SOCIAL HISTORY: Current everyday smoker. ALLERGIES: Advair. CURRENT MEDICATIONS: 1. Breo 200/25: Inhale 1 puff daily. 2. Prednisone 10 mg oral tablet: Take 4 tablets for 2 days, then decrease by one-half tablet every 2 days until complete. 3. Saline solution: Use 1 vial via nebulizer in the mornings x3 as directed. 4. Albuterol sulfate inhalation nebulizer solution: Use 1 unit dose in nebulizer every 4 hours as needed. 5. Spiriva Respimat 2.5 mcg/ACT: Inhale 2 puffs once daily. 6. Ventolin HFA 108 mcg/ACT: Inhale 2 puffs every 4 hours as needed. 7. Flomax 0.4 mg oral capsule: Take as directed. 8. Gabapentin 600 mg oral tablet: Take 1 tablet 3 times daily. 9. Lipitor 20 mg oral tablet: Take 1 tablet daily as directed. 10. Hydrochlorothiazide 20/12.5 mg oral tablet: Take 1 tablet daily. 11. Metformin hydrochloride 500 mg oral tablet: Take 1/2 tablet in the morning and 1 tablet the evening. 12. Omeprazole 20 mg oral capsule delayed release: Take 1 capsule by mouth every other day. 13. Potassium chloride 10 mEq: Take 1 tablet twice daily. 14. Promethazine/codeine 6.25/10 mg per 5 mL oral syrup: Take 5-10 mL every 4 hours as needed for cough. PHYSICAL EXAMINATION: CONSTITUTIONAL: Well-developed, well-nourished, obese male. No acute distress. HEAD: Positive facial symmetry. EYES: EOMI, PERRLA. No conjunctival injection. MOUTH: Mallampati 3. No erythema, exudate, or postnasal drip visible. NECK: Trachea midline without adenopathy or masses. RESPIRATORY: Nonlabored respirations. Bronchial breath sounds in bilaterally apices. Good air movement at bases. No wheeze or rhonchi. CARDIOVASCULAR: Regular rate and rhythm. No murmurs, rubs or gallops. +2 radial pulses throughout. Less than 1 second capillary refill distally. ABDOMEN: Soft, active bowel sounds. INTEGUMENTARY: No rashes, ecchymosis. Tattoos on forearm. MUSCULOSKELETAL AND EXTREMITIES: Moving and developed symmetrically without any peripheral edema or calf tenderness. NEUROLOGIC: Alert and oriented. Data recall intact. Appropriate affect. REVIEW OF SYSTEMS: CONSTITUTIONAL: Denies fevers, malaise, chills or fatigue. EYES: Negative. EARS, NOSE, THROAT: As noted in HPI without any pharyngitis or vocal hoarseness. CARDIOVASCULAR: Denies chest pain, palpitations, or peripheral edema. RESPIRATORY: Positive for cough, wheeze, dyspnea on exertion but as noted in HPI. GASTROINTESTINAL: Negative. Denies heartburn. HEMATOLOGIC/LYMPHATIC: Negative. ASSESSMENT AND PLAN: A 56-year-old male is followed in the outpatient office for continuation of care of chronic cough. He does have recurrent episodes of exacerbation and required multiple courses of steroids and antibiotics over the past 1 year. He improves temporarily between these episodes. His radiographic studies do show evidence of mucous plugging. He does have a history of some difficulty with compliance, specifically with his CPAP as was previously managed by Dr. Link. At this time, given his recurrent exacerbation and history of mucous plugging on imaging will move forward with bronchoscopy/BAL which should be both diagnostic and therapeutic. Special attention made to the left lower lobe as this was previously problematic on his imaging but may require more aggressive lavage. I explained to him that this may or may not provide symptomatic relief; however, he is willing to move forward with this procedure. He should complete blood work within 30 days prior to procedure and follow up in the office post-testing to review clinical response and any results. BROOKE
[~2017-01-09] VITALS: Ht 170.2 cm; Wt 110.0 kg
[2017-01-09] VITALS (13 sets, daily range): BP systolic 120–154; BP diastolic 83–98; PULSE 88–98; TEMP 36.9–37.2; O2SAT 91–98; Ht 170.2 cm; Wt 110.0 kg
[~2017-01-09 08:20] MED LIST changes: -ATOR-54 PO; -FLM4 PO; -FLUT1INH INH; +FLUT1INH7 INH; -GABA800T2 PO; +GLC500 PO; +LISI-461 PO; -LISI10TA PO; +LPT/20 PO; +NRN800 PO; +OMEP20CA9 PO; +POTA20TA13 PO; -POTA20TA16 PO; -PRLSR20 PO; -SPRIN/30 INH; +TIOT1SPR INH
[2017-01-09] MEDS ORDERED: FENTANYL CITRATE 100 MCG 2 ML CARP IV ONE (08:21)
[2017-01-09] MEDS ORDERED: MIDAZOLAM HCL 1 MG/ML 2ML VIAL IV ONE (08:21)
[2017-01-09] MEDS ORDERED: LIDOCAINE HCL 2% LOCAL 50ML VIAL INFIL ONE (08:21)
--- NOTE | 2017-01-09 09:58 | History & Physical Bridge Note ---
H&P Re-Evaluation Bridge Note: I have examined the patient, reviewed the History & Physical and in the interval since the performance of the History & Physical I have noted the following changes of clinical significance: No changes noted
--- NOTE | 2017-01-09 09:59 | Procedure Note ---
Pre-Mod Sedation Assessment General Date of Moderate Sedation: Jan 09, 2017. Vital Signs: Vital Signs Past 12 Hours Date Time Temp Pulse Resp B/P (MAP) Pulse Ox O2 Delivery O2 Flow Rate FiO2 01/09/17 09:50 36.9 98 20 135/84 93 Room Air 01/09/17 09:05 36.9 98 20 135/84 (101) 93 Room Air Review Cardiovascular: regular rate, rhythm, no edema, no gallop, no JVD, no murmur Abdomen: normal bowel sounds, non tender, soft, no organomegaly, no pulsatile mass Lungs: chest non-tender, lungs clear, normal breath sounds Airway Class: II Pre-Sedation Airway Assessment Oral Cavity: Dentures Able to Visualize Vocal Cords: Yes Short Thick Neck: Yes Hx of Sleep Apnea: Yes Smoking Status: Current Every Day Smoker Mallampati Classification: Class II ASA Classification: Class II Procedure Planning Contraindications-for Mod Sed: None Notes The planned sedation has been discussed with the patient and consent obtained. I have identified the patient, determined the appropriateness of sedation and have assessed the patient immediately prior to the procedure. All medicine(s) and interventions are by my order.
[2017-01-09] MEDS ORDERED: NURSING VERBAL MED ORDER ONE ×2 (10:15→11:00)
[2017-01-09] MEDS ORDERED: DEXTROSE 5% 1000ML 1,000 ML IV SCH (10:30)
--- NOTE | 2017-01-09 11:06 | Procedure Note ---
Post-Moderate Sedation Plan General Date of Moderate Sedation Jan 09, 2017. Vital Signs: Vital Signs Past 12 Hours Date Time Temp Pulse Resp B/P (MAP) Pulse Ox O2 Delivery O2 Flow Rate FiO2 01/09/17 10:53 95 18 142/92 95 Mask 8.0 01/09/17 10:48 94 18 134/88 94 Mask 8.0 01/09/17 10:43 94 18 154/97 93 Mask 8.0 01/09/17 10:38 91 18 132/88 92 Mask 8.0 01/09/17 10:33 90 22 143/83 96 Mask 8.0 01/09/17 09:52 88 21 120/85 98 Mask 8.0 01/09/17 09:50 36.9 98 20 135/84 93 Room Air 01/09/17 09:05 36.9 98 20 135/84 (101) 93 Room Air Review - Discharge Plan Post Moderate Sedation Plan: On clinical assessment, the patient appears to have tolerated the conscious sedation without complications. Patient is recovering as anticipated. Patient will continue to be monitored by nursing and may be discharged when conscious sedation discharge criteria are met.
--- NOTE | 2017-01-09 11:06 | Bronchoscopy Procedure Note ---
Bronchoscopy Procedure Note Procedure: Bronchoscopy, conscious sedation, bronchial lavage right upper lobe RB1 Consent: Obtained through the patient placed into the chart Pre-procedural diagnosis: Chronic cough with associated bronchiectasis Post-procedural diagnosis: Chronic cough with associated bronchiectasis Start time: 8 End time: 1043 Total time: 15 minutes Analgesia: 2% liquid lidocaine: Via nebulizer 4% gel lidocaine: Via right naris 2% liquid lidocaine: Via bronchoscopy Sedation: Versed IV: 2 mg Fentanyl IV: 50 g Procedure: The Olympus video bronchoscope was used for this procedure and passed down through the right naris Right naris/posterior naris/posterior oropharynx: Notably erythematous throughout the upper airway Glottis: Diffuse erythema with notable cobblestoning Vocal cords: Proper abduction and abduction, diffuse erythema along the false will records Subglottis/trachea/Shey: Anatomically within normal limits, there is some erythema appreciated at the shey as well as the posterior membrane Right bronchial tree: Right mainstem bronchus: Anatomically within normal limits Right upper lobe: Anatomically within normal limits, mucus plugs appreciated in the RB1 subsegment, notable collapse of the right upper lobe during expiration Bronchus intermedius: Anatomically within normal limits Right middle lobe: Anatomically within normal limits Right lower lobe: Anatomically within normal limits, minimal mucus plugging Findings: Mucus plugging noted especially in the right upper lobe Left bronchial tree: Left mainstem bronchus: Anatomically within normal limits Left upper lobe: Anatomically within normal limits, minimal mucus plugging Lingula: Anatomically within normal limits Left lower lobe: Anatomically within normal limits, minimal mucus plugging Findings: No significant findings noted Bronchial alveolar lavage: Right upper lobe EBL: None Complications: None Follow-up: ASU
--- NOTE | 2017-01-09 11:14 | Discharge Instructions ---
Discharge Instructions Date of Service Jan 09, 2017. Admission Reason for Admission: Chronic Cough Discharge Discharge Diagnosis / Problem: Chronic cough with associated bronchiectasis Discharge Goals Goal(s): Diagnostic testing Activity Recommendations Activity Limitations: resume your previous activity . Instructions / Follow-Up Instructions / Follow-Up Follow-up with provider Zahida Lino in the pulmonary [facility] Current Hospital Diet Patient's current hospital diet: Discharge Diet Recommended Diet: Regular Diet Procedures Procedures Performed: Bronchoscopy, conscious sedation bronchial lavage of the right upper Pending Studies Studies pending at discharge: no Medical Emergencies . Who to Call and When: Medical Emergencies: If at any time you feel your situation is an emergency, please call 911 immediately. . Non-Emergent Contact Non-Emergency issues call your: Creative Services Intern . . "Provider Documentation" section prepared by Gus Nunez. . VTE Core Measure Inpt VTE Proph given/why not?: Treatment not indicated
[2017-01-09] MEDS ORDERED: MIDAZOLAM HCL 5 MG/ML 1 ML VIAL IV SCH (12:00)
[2017-01-09] MEDS ORDERED: FENTANYL CITRATE INJ 50 MCG/1 ML 2 ML VIAL IV SCH (12:00)
== END 2017-01-09 12:45 | disposition home or self-care (01) ==
LOC: C.ACU 08:20
PROVIDERS: ATTEND Internal Medicine Critical Care Medicine
DX: R05 Cough (principal); J47.9 Bronchiectasis, uncomplicated; G47.33 Obstructive sleep apnea (adult) (pediatric); Z99.81 Dependence on supplemental oxygen; E11.22 Type 2 diabetes mellitus with diabetic chronic kidney disease; N18.3 Chronic kidney disease, stage 3 (moderate); E66.9 Obesity, unspecified; F17.200 Nicotine dependence, unspecified, uncomplicated; Z86.718 Personal history of other venous thrombosis and embolism; K21.9 Gastro-esophageal reflux disease without esophagitis; I12.9 Hypertensive chronic kidney disease with stage 1 through stage 4 chronic kidney disease, or unspecified chronic kidney disease; E78.5 Hyperlipidemia, unspecified; E55.9 Vitamin D deficiency, unspecified; F32.9 Major depressive disorder, single episode, unspecified; E21.3 Hyperparathyroidism, unspecified; Z79.84 Long term (current) use of oral hypoglycemic drugs; Z79.899 Other long term (current) drug therapy

== ENCOUNTER → 2017-01-17 | Outpatient (CLI) | payer OTHER ==
[~2017-01-17] MED LIST changes: -OXYC-57 PO
--- NOTE | 2017-01-17 11:39 | DIAGNOSTIC IMAGING REPORT ---
CHEST 2 VIEWS ROUTINE CLINICAL HISTORY: J40 [id number] COMPARISON STUDY: 03/27/2013 FINDINGS: The cardiac and mediastinal contours are normal. There is no evidence of focal pulmonary consolidation. There is no evidence of failure. No pleural effusions are visualized.[ Subcentimeter densities at each lung base are felt to represent nipple shadows. IMPRESSION: No active disease in the chest. Electronically signed by: Arben Kitchen M.D. 01/17/2017 11:37 AM Dictated Date/Time: 01/17/2017 11:37 AM
== END | disposition home or self-care (01) ==
LOC: C.RAD1850 11:29
PROVIDERS: ATTEND Physician Assistant
DX: J40 Bronchitis, not specified as acute or chronic (principal)

== ENCOUNTER 2017-05-06 21:54 | Emergency (ER) | payer OTHER ==
[~2017-05-06] VITALS: Ht 170.2 cm; Wt 112.0 kg
[~2017-05-06 21:54] MED LIST changes: -LPT/20 PO; +LPT20 PO
[2017-05-06 22:01] VITALS: TEMP 36.6; Ht 170.2 cm; Wt 112.0 kg
--- NOTE | 2017-05-06 22:23 | EMERGENCY ROOM VISIT NOTE ---
History Report prepared by Mulu: Elisabeth Bradley Under the Supervision of: Dr. Leonel Henriquez M.D. First contact with patient: 22:10 Chief Complaint: ABDOMINAL PAIN Stated Complaint: STOMACH PAIN History of Present Illness The patient is a 57 year old male who presents to the Emergency Room with complaints of worsening abdominal pain beginning yesterday afternoon. The patient reports his pain shoots into his groin. Presently, the patient rates his pain as a 9/10. He states he has had pain like this previously when he had kidney stones. He reports mild nausea and looser than normal stools. He denies any fever, headaches, dizziness, vomiting, testicular pain. The patient states my "kidneys are aching". The patient follows up with -Urology. He reports he is scheduled to have scans on his kidneys in a month to check the status of his kidney stones. Source of History: patient Onset: yesterday Position: abdomen Symptom Intensity: 9/10 Quality: other (shooting) Timing: worsening Associated Symptoms: + abdominal pain, No fevers, No headache, No nausea, No vomiting, No urinary symptoms Review of Systems See HPI for pertinent positives and negatives. A total of ten systems were reviewed and were otherwise negative. Past Medical & Surgical Medical Problems: (1) Cerebrovascular disease (2) Chronic back pain (3) Dyslipidemia (4) Essential hypertension (5) Gastroesophageal reflux disease (6) History of adenomatous polyp of colon (7) History of renal calculi (8) Hyperparathyroidism (9) Sciatica (10) Sleep apnea (11) Smoker (12) Umbilical hernia Surgical Problems: (1) Repair of umbilical hernia (2) s/p lumbar decompression / fusion (3) s/p parathyroidectomy (4) s/p repair umbilical hernia (5) Status post cholecystectomy Family History Patient reports no known family medical history. Social History Smoking Status: Current Every Day Smoker Alcohol Use: none Drug Use: none Marital Status: Occupation Status: disabled Current/Historical Medications Scheduled Atorvastatin (Lipitor), 20 MG PO HS Fluticasone Furoate-Vilanterol (Breo Ellipta 200-25 Mcg/INH), 1 PUFF INH QAM Gabapentin (Gabapentin), 800 MG PO TID Lisinopril (Lisinopril), 5 MG PO QAM Lisinopril/Hctz (Zestoretic 20MG/12.5MG), 1 TAB PO QAM Metformin HCl (Metformin HCl), 250 MG PO QAM Metformin Hcl (Glucophage), 500 MG PO QPM Omeprazole (Prilosec), 20 MG PO QAM Potassium Chloride Microencaps (Potassium Chloride Er), 40 MEQ PO QPM Ranitidine HCl (Ranitidine HCl), 150 MG PO BID Tiotropium [place] (Spiriva Respimat), 1 SPRAY INH QAM Scheduled PRN Albuterol Hfa (Ventolin Hfa), 2 PUFFS INH Q4H PRN for SOB/Wheezing Ipratropium-Albuterol (Duoneb), 1 TREATMENT INH QID PRN for SOB/Wheezing Lidocaine (Lidocaine), 1 PATCH TD DAILY PRN for Pain Allergies Coded Allergies: Fluticasone (Unverified Allergy, Unknown, throat and tongue swelling, 01/09) Salmeterol (Unverified Allergy, Unknown, throat and tongue swelling, ) Physical Exam Vital Signs Date Time Temp Pulse Resp B/P (MAP) Pulse Ox O2 Delivery O2 Flow Rate FiO2 05/07/17 00:25 87 18 116/77 94 05/06/17 23:17 90 18 157/95 93 Room Air 05/06/17 22:51 93 05/06/17 22:01 36.6 106 18 154/80 95 Room Air Physical Exam GENERAL: Awake, alert, fatigued and uncomfortable-appearing, in no distress HENT: Normocephalic, atraumatic. Oropharynx unremarkable. Dry mucus membranes. EYES: Normal conjunctiva. Sclera non-icteric. NECK: Supple. No nuchal rigidity. FROM. No JVD. RESPIRATORY: Clear to auscultation. CARDIAC: Regular rate, normal rhythm. Extremities warm and well perfused. Pulses equal. ABDOMEN: Mild left flank and LLQ tenderness, no peritoneal signs. Soft, non- distended. No tenderness to palpation. No rebound or guarding. No masses. RECTAL: Deferred. MUSCULOSKELETAL: Chest examination reveals no tenderness. The back is symmetrical on inspection without obvious abnormality. There is no CVA tenderness to palpation. No joint edema. LOWER EXTREMITIES: Calves are equal size bilaterally and non-tender. No edema. No discoloration. NEURO: Normal sensorium. No sensory or motor deficits noted. SKIN: No rash or jaundice noted. Medical Decision & Procedures ER Provider Diagnostic Interpretation: Radiology results as stated below per my review and radiologist interpretation: CT SCAN OF THE ABDOMEN AND PELVIS WITH IV CONTRAST FINDINGS: Lung bases: The heart is normal in size and without pericardial effusion. There are coronary artery calcifications. A tiny hiatal hernia is identified. Dizziness change is suggested. No airspace consolidation or pleural effusion is identified a calcified granuloma is noted at the left lung base. Liver: The contrast-enhanced liver is enlarged, measuring 20.5 cm in length. The liver demonstrates diffusely diminished attenuation consistent with hepatic steatosis. There is no intrahepatic biliary ductal dilatation. The hepatic veins and portal veins are patent. A 12 mm cyst is noted in the inferior right lobe. Gallbladder: Surgically absent noting clips in the gallbladder fossa. Spleen: Mildly enlarged, measuring 13.4 cm in length. There are numerous calcified splenic granulomas. Pancreas: Unremarkable. Adrenal glands: Unremarkable. Kidneys: The contrast enhanced kidneys demonstrate mild cortical atrophy and are without hydronephrosis. The kidneys enhance symmetrically. The kidneys are infiltrated by tumor numerous to count cysts which measure up to 5.2 cm. A 1.8 cm hyperdense lesion in the left kidney on image #204 is consistent with a complex/hyperdense cyst when correlated with 09/28/2016 examination. There are numerous bilateral nonobstructing renal calculi. The largest is on the left and measures up to 12 mm. Abdominal vasculature: The abdominal aorta is normal in course and caliber noting advanced atherosclerotic calcification. Bowel: No bowel obstruction is seen. The appendix is well-visualized and normal. Peritoneum: There is no intraperitoneal free air or abdominal ascites. There is a tiny fat-containing umbilical hernia. There is mild mesenteric stranding identified adjacent to loops of small bowel in the midabdomen on image #208 and in the left lower quadrant on image #273. Underlying bowel loops are normal in appearance. Lymphadenopathy: None. Pelvic viscera: The prostate is mildly enlarged and heterogeneous, noting median lobe hypertrophy. The bladder wall is mildly thickened and trabeculated consistent with chronic outlet obstruction. Skeletal structures: No lytic or blastic lesions are seen. There are postoperative changes from L5 - S1 spinal fusion. IMPRESSION: 1. There are foci of mild stranding identified within the mesentery adjacent to small bowel loops in the midabdomen and left lower quadrant as above. The underlying bowel loops are normal in appearance. The appearance is nonspecific and may represent a mild enteritis. Clinical correlation will be required. 2. Hepatomegaly and hepatic steatosis. 3. There are numerous bilateral nonobstructing renal calculi. 4. The kidneys are infiltrated by too numerous to count cysts. The appearance suggests autosomal dominant polycystic kidney disease. Clinical correlation will be required. 5. Additional findings as above. Electronically signed by: Paul Reynoso M.D. Laboratory Results 05/06/17 22:34 Red Blood Count 4.73, Mean Corpuscular Volume 93.7, Mean Corpuscular Hemoglobin 33.8, Mean Corpuscular Hemoglobin Concent 36.1, Mean Platelet Volume 9.2, Neutrophils (%) (Auto) 59.8, Lymphocytes (%) (Auto) 23.3, Monocytes (%) (Auto) 13.4, Eosinophils (%) (Auto) 2.5, Basophils (%) (Auto) 0.6, Neutrophils # (Auto ) 6.76, Lymphocytes # (Auto) 2.64, Monocytes # (Auto) 1.51, Eosinophils # (Auto ) 0.28, Basophils # (Auto) 0.07 05/06/17 22:34 Test 05/06/17 22:34 White Blood Count 11.31 K/uL (4.8-10.8) Red Blood Count 4.73 M/uL (4.7-6.1) Hemoglobin 16.0 g/dL (14.0-18.0) Hematocrit 44.3 % (42-52) Mean Corpuscular Volume 93.7 fL (80-100) Mean Corpuscular Hemoglobin 33.8 pg (25-34) Mean Corpuscular Hemoglobin Concent 36.1 g/dl (32-36) Platelet Count 195 K/uL (130-400) Mean Platelet Volume 9.2 fL (7.4-10.4) Neutrophils (%) (Auto) 59.8 % Lymphocytes (%) (Auto) 23.3 % Monocytes (%) (Auto) 13.4 % Eosinophils (%) (Auto) 2.5 % Basophils (%) (Auto) 0.6 % Neutrophils # (Auto) 6.76 K/uL (1.4-6.5) Lymphocytes # (Auto) 2.64 K/uL (1.2-3.4) Monocytes # (Auto) 1.51 K/uL (0.11-0.59) Eosinophils # (Auto) 0.28 K/uL (0-0.5) Basophils # (Auto) 0.07 K/uL (0-0.2) RDW Standard Deviation 51.0 fL (36.4-46.3) RDW Coefficient of Variation 15.0 % (11.5-14.5) Immature Granulocyte % (Auto) 0.4 % Immature Granulocyte # (Auto) 0.05 K/uL (0.00-0.02) Anion Gap 5.0 mmol/L (3-11) Est Creatinine Clear Calc Drug Dose 64.1 ml/min Estimated GFR () 58.1 Estimated GFR (Non- 50.1 BUN/Creatinine Ratio 8.0 (10-20) Calcium Level 9.3 mg/dl (8.5-10.1) Total Bilirubin 0.5 mg/dl (0.2-1) Direct Bilirubin 0.1 mg/dl (0-0.2) Aspartate Amino Transf (AST/SGOT) 18 U/L (15-37) Alanine Aminotransferase (ALT/SGPT) 43 U/L (12-78) Alkaline Phosphatase 123 U/L (45-117) Total Protein 7.8 gm/dl (6.4-8.2) Albumin 3.7 gm/dl (3.4-5.0) Lipase 96 U/L (73-393) Laboratory results reviewed by me Medications Administered Medications (Trade) Dose Ordered Sig/Edith Route Start Time Stop Time Status Last Admin Dose Admin Sodium Chloride 1,000 ml @ 999 mls/hr Q1H1M STAT IV 05/06/17 22:24 05/06/17 23:24 DC 05/06/17 22:40 999 MLS/HR Ketorolac Tromethamine (Toradol Inj) 15 mg NOW STAT IV 05/06/17 22:24 05/06/17 22:26 DC 05/06/17 22:41 15 MG Fentanyl Citrate (Fentanyl Inj) 50 mcg NOW STAT IV 05/06/17 22:24 05/06/17 22:26 DC 05/06/17 22:42 50 MCG Potassium Chloride (Klor-Con M10) 40 meq NOW STAT PO 05/06/17 23:51 05/06/17 23:53 DC 05/07/17 00:20 40 MEQ Lidocaine (Lidoderm Patch 5%) 1 patch NOW STAT TD 05/07/17 00:06 05/07/17 00:07 DC 05/07/17 00:20 1 PATCH ED Course 2217: The patient was evaluated in room A2. A complete history and physical exam was performed. 0001: I updated the patient on his test results. 0015: I reevaluated the patient. Discussed results and discharge instructions: He verbalized understanding and agreement. The patient is ready for discharge. Medical Decision I reviewed the patient's past medical history, medications, and the nursing notes as described above. Differential diagnosis: Etiologies such as renal colic, appendicitis, diverticulitis, mesenteric ischemia, aortic pathology, infections, inflammatory bowel disease, PUD, biliary pathology, UTI, as well as others were entertained. The patient is a 57 y/o gentleman with a past medical history of kidney stones who presents to the emergency department with left flank, LLQ abd pain per HPI. On arrival the patient is uncomfortable but in NAD, AFVSS. On exam the patient has mild discomfort in the left flank and left lower quadrant without peritoneal signs. WBC 11, nonspecific. Labs otherwise unremarkable. CT with likely early enteritis c/w patient's report of nausea and diarrhea. The patient is feeling improved after IV fluid hydration and analgesia. Findings and plan for follow-up reviewed with patient. Patient agreeable and d/c'd per discharge instructions. Medication Reconcilliation Current Medication List: was personally reviewed by me Blood Pressure Screening Patient's blood pressure: Elevated blood pressure Blood pressure disposition: Elevated BP felt to be situational Impression Primary Impression: Left flank pain Additional Impression: Enteritis Scribe Attestation The scribe's documentation has been prepared under my direction and personally reviewed by me in its entirety. I confirm that the note above accurately reflects all work, treatment, procedures, and medical decision making performed by me. Departure Information Dispostion Home / Self-Care Prescriptions Lidocaine (Lidocaine) 1 Patch Tdsy 1 PATCH TD DAILY Y for Pain, #10 PATCH Prov: Leonel Henriquez M.D. 05/07/17 Referrals Effie Hendricks D.O. (PCP) Forms Call Back Authorization, HOME CARE DOCUMENTATION FORM, IMPORTANT VISIT INFORMATION Patient Instructions ED Flank Pain Uncertain Cause, ED Gastroenteritis Viral, My [facility] Additional Instructions Please follow up with your primary care physician in the next 1-3 days for re- evaluation. Because of your symptoms are unclear at this time but may be related to a viral enteritis. Otherwise, your exam, lab results, and CT scan did not show signs of an emergent condition at this time. Acetaminophen for pain and fevers as needed. Lidoderm patch for additional pain relief as needed. Drink plenty of fluids to ensure hydration. Return to the emergency department for worsening symptoms as described in the accompanying instructions. Problem Qualifiers
[2017-05-06] MEDS ORDERED: SODIUM CHLORIDE 0.9% 1000ML 1,000 ML IV STA (22:24)
[2017-05-06] MEDS ORDERED: FENTANYL CITRATE INJ 50 MCG/1 ML 2 ML VIAL IV STA (22:24)
[2017-05-06] MEDS ORDERED: KETOROLAC TROMETHAMINE 30 MG/ML VIAL IV STA (22:24)
[2017-05-06 22:41] LABS: BASO % 0.6 %; BASO ABS # 0.07 K/uL (0-0.2); EOS % 2.5 %; EOS ABS # 0.28 K/uL (0-0.5); HEMATOCRIT 44.3 % (42-52); IG# 0.05 K/uL (0.00-0.02); LYMPH % 23.3 %; LYMPH ABS # 2.64 K/uL (1.2-3.4); MEAN CELL VOLUME 93.7 fL (80-100); MEAN CORPUSCULAR HEMOGLOBIN 33.8 pg (25-34); MEAN CORPUSCULAR HGB CONC 36.1 g/dl (32-36); MEAN PLATELET VOLUME 9.2 fL (7.4-10.4); MONO % 13.4 %; MONO ABS # 1.51 K/uL (0.11-0.59); NEUT % 59.8 %; NEUT ABS # 6.76 K/uL (1.4-6.5); PLATELET COUNT 195 K/uL (130-400); WHITE BLOOD COUNT 11.31 K/uL (4.8-10.8)
[2017-05-06] MEDS ORDERED: OPTIRAY 320 IV PRN ×2 (22:45)
[2017-05-06] MEDS ORDERED: RANI150T2 PO (22:50)
[2017-05-06 22:59] LABS: ALBUMIN 3.7 gm/dl (3.4-5.0); CALCIUM 9.3 mg/dl (8.5-10.1); CREATININE 1.52 mg/dl (0.60-1.40); POTASSIUM 3.1 mmol/L (3.5-5.1)
[2017-05-06 23:08] LABS: TOTAL PROTEIN 7.8 gm/dl (6.4-8.2)
--- NOTE | 2017-05-06 23:40 | DIAGNOSTIC IMAGING REPORT ---
CT SCAN OF THE ABDOMEN AND PELVIS WITH IV CONTRAST CLINICAL HISTORY: Left flank pain. COMPARISON STUDY: Abdominal CT dated 09/28/2016. TECHNIQUE: Following the IV administration of 90 cc of Optiray 320, CT scan of the abdomen and pelvis is performed from the lung bases to the proximal femora. Images are reviewed in the axial, sagittal, and coronal planes. IV contrast was administered without complication. A dose lowering technique was utilized adhering to the principles of ALARA. CT DOSE: 1406.77 mGy.cm FINDINGS: Lung bases: The heart is normal in size and without pericardial effusion. There are coronary artery calcifications. A tiny hiatal hernia is identified. Dizziness change is suggested. No airspace consolidation or pleural effusion is identified a calcified granuloma is noted at the left lung base. Liver: The contrast-enhanced liver is enlarged, measuring 20.5 cm in length. The liver demonstrates diffusely diminished attenuation consistent with hepatic steatosis. There is no intrahepatic biliary ductal dilatation. The hepatic veins and portal veins are patent. A 12 mm cyst is noted in the inferior right lobe. Gallbladder: Surgically absent noting clips in the gallbladder fossa. Spleen: Mildly enlarged, measuring 13.4 cm in length. There are numerous calcified splenic granulomas. Pancreas: Unremarkable. Adrenal glands: Unremarkable. Kidneys: The contrast enhanced kidneys demonstrate mild cortical atrophy and are without hydronephrosis. The kidneys enhance symmetrically. The kidneys are infiltrated by tumor numerous to count cysts which measure up to 5.2 cm. A 1.8 cm hyperdense lesion in the left kidney on image #204 is consistent with a complex/hyperdense cyst when correlated with 09/28/2016 examination. There are numerous bilateral nonobstructing renal calculi. The largest is on the left and measures up to 12 mm. Abdominal vasculature: The abdominal aorta is normal in course and caliber noting advanced atherosclerotic calcification. Bowel: No bowel obstruction is seen. The appendix is well-visualized and normal. Peritoneum: There is no intraperitoneal free air or abdominal ascites. There is a tiny fat-containing umbilical hernia. There is mild mesenteric stranding identified adjacent to loops of small bowel in the midabdomen on image #208 and in the left lower quadrant on image #273. Underlying bowel loops are normal in appearance. Lymphadenopathy: None. Pelvic viscera: The prostate is mildly enlarged and heterogeneous, noting median lobe hypertrophy. The bladder wall is mildly thickened and trabeculated consistent with chronic outlet obstruction. Skeletal structures: No lytic or blastic lesions are seen. There are postoperative changes from L5 - S1 spinal fusion. IMPRESSION: 1. There are foci of mild stranding identified within the mesentery adjacent to small bowel loops in the midabdomen and left lower quadrant as above. The underlying bowel loops are normal in appearance. The appearance is nonspecific and may represent a mild enteritis. Clinical correlation will be required. 2. Hepatomegaly and hepatic steatosis. 3. There are numerous bilateral nonobstructing renal calculi. 4. The kidneys are infiltrated by too numerous to count cysts. The appearance suggests autosomal dominant polycystic kidney disease. Clinical correlation will be required. 5. Additional findings as above. Electronically signed by: Paul Reynoso M.D. 05/06/2017 11:38 PM Dictated Date/Time: 05/06/2017 11:23 PM
[2017-05-06] MEDS ORDERED: POTASSIUM CHLORIDE 10 MEQ TABCR PO STA (23:51)
[2017-05-07] MEDS ORDERED: LDDP5 TD (00:04)
[2017-05-07] MEDS ORDERED: LIDODERM (LIDOCAINE) PATCH 5% TD STA (00:06)
[2017-05-07 00:25] VITALS: BP 116/77; PULSE 87; O2SAT 94
== END 2017-05-07 00:25 | disposition home or self-care (01) ==
LOC: C.EDB 21:55 → C.EDA 05-07 00:25
DX: R10.32 Left lower quadrant pain (principal); K52.9 Noninfective gastroenteritis and colitis, unspecified; N20.0 Calculus of kidney; I67.9 Cerebrovascular disease, unspecified; M54.9 Dorsalgia, unspecified; G89.29 Other chronic pain; E78.5 Hyperlipidemia, unspecified; I10 Essential (primary) hypertension; K21.9 Gastro-esophageal reflux disease without esophagitis; F17.200 Nicotine dependence, unspecified, uncomplicated; Z90.49 Acquired absence of other specified parts of digestive tract; Z79.84 Long term (current) use of oral hypoglycemic drugs; Z88.8 Allergy status to other drugs, medicaments and biological substances

== ENCOUNTER 2018-12-10 08:22 | Observation (INO) ==
--- NOTE | 2018-11-26 16:35 | PAT Medication Instructions ---
Medication Instructions Date of Service November 26, 2018 Home Medications albuterol sulfate 2 puff INHALATION Q6H PRN atorvastatin [Lipitor] 20 mg PO HS fenofibrate nanocrystallized 145 mg PO HS gabapentin [Neurontin] 600 mg PO QID hydrochlorothiazide 12.5 mg PO QAM ipratropium-albuterol 3 ml INHALATION QID PRN lisinopril 40 mg PO QAM metformin [Glucophage] 500 mg PO QPM omeprazole 20 mg PO QAM potassium chloride [Klor-Con M20] 40 meq PO QPM ranitidine HCl [Zantac] 150 mg PO BID tiotropium bromide [Spiriva Respimat] 1 inh INHALATION QAM Famotidiine 1 PO BID Finasteride 1 tab PO QPM fluticasone furoate-vilanterol [Breo Ellipta] 1 inh INHALATION QAM STOP taking 48 hours before surgery fenofibrate nanocrystallized 145 mg PO HS DO NOT take the morning of surgery hydrochlorothiazide 12.5 mg PO QAM lisinopril 40 mg PO QAM ranitidine HCl [Zantac] 150 mg PO BID Famotidiine 1 PO BID Take morning of surgery With a small sip of water, OTHERWISE NOTHING TO EAT OR DRINK AFTER MIDNIGHT: albuterol sulfate 2 puff INHALATION Q6H PRN (use if needed; please bring with you to hospital day of surgery if possible) gabapentin [Neurontin] 600 mg PO QID ipratropium-albuterol 3 ml INHALATION QID PRN (if needed) omeprazole 20 mg PO QAM tiotropium bromide [Spiriva Respimat] 1 inh INHALATION QAM fluticasone furoate-vilanterol [Breo Ellipta] 1 inh INHALATION QAM Take evening before surgery albuterol sulfate 2 puff INHALATION Q6H PRN (if needed) atorvastatin [Lipitor] 20 mg PO HS gabapentin [Neurontin] 600 mg PO QID ipratropium-albuterol 3 ml INHALATION QID PRN (if needed) metformin [Glucophage] 500 mg PO QPM potassium chloride [Klor-Con M20] 40 meq PO QPM ranitidine HCl [Zantac] 150 mg PO BID Famotidiine 1 PO BID Finasteride 1 tab PO QPM Other Notes If you have any questions please call us at [phone] or [phone] or [phone] or [phone]
--- NOTE | 2018-11-28 09:52 | Anesthesiology Consultation ---
Date of Service November 28, 2018 Assessment & Plan (1) Encounter for pre-operative examination: - Check BSG AM DOS Chart Review Chart Review: Pending: Refer to Additional Notes / Consult section (pending preop testing (labs, EKG, CXR)) and Patient seen in Pre Admission Testing Teaching & Discussion Pre-Anesthesia Teaching/Discussion Notes: Instructed NPO after midnight before surgery,except medications with 15 cc of water. Medication instructions provided according to the PAT guidelines. History Surgery Operation Date: 12/13/18 10:05 Proposed Procedures p L3-L4, L4-L5 Laminectomy - Corby Viramontes, Height/Weight Height: 5 ft 4 in Weight: 113.7 kg Allergies Allergy/AdvReac Type Severity Reaction Status Date / Time fluticasone Allergy Unknown throat and Verified 11/26/18 14:00 tongue swelling salmeterol Allergy Unknown throat and Verified 11/26/18 14:00 tongue swelling Medications Home Medications Medication Instructions Recorded Confirmed Last Taken albuterol sulfate 2 puff INHALATION Q6H PRN 07/10/18 11/26/18 Unknown atorvastatin [Lipitor] 20 mg PO HS 07/10/18 11/26/18 Unknown fenofibrate nanocrystallized 145 mg PO HS 07/10/18 11/26/18 Unknown gabapentin [Neurontin] 600 mg PO QID 07/10/18 11/26/18 Unknown hydrochlorothiazide 12.5 mg PO QAM 07/10/18 11/26/18 Unknown ipratropium-albuterol 3 ml INHALATION QID PRN 07/10/18 11/26/18 Unknown lisinopril 40 mg PO QAM 07/10/18 11/26/18 Unknown metformin [Glucophage] 500 mg PO QPM 07/10/18 11/26/18 Unknown omeprazole 20 mg PO QAM 07/10/18 11/26/18 Unknown potassium chloride [Klor-Con M20] 40 meq PO QPM 07/10/18 11/26/18 Unknown tiotropium bromide [Spiriva 1 inh INHALATION QAM 07/10/18 11/26/18 Unknown Respimat] Famotidiine 1 PO BID 11/26/18 Unknown Finasteride 1 tab PO QPM 11/26/18 Unknown fluticasone furoate-vilanterol 1 inh INHALATION QAM 11/26/18 11/26/18 Unknown [Breo Ellipta] Rescue Pack 1 dose DIRECTED PRN 11/28/18 Unknown Past Medical History Medical History COPD (chronic obstructive pulmonary disease) stable Stage III chronic kidney disease Type 2 diabetes mellitus NIDDM Hypertension History of renal calculi Arthritis BPH (benign prostatic hyperplasia) GERD (gastroesophageal reflux disease) controlled Hyperlipidemia Morbid obesity Obesity Shoulder pain s/p B/L corticosteroid injection 11/2018 Sleep apnea CPAP HS + 1L O2 Exercise / Class Metabolic Activity III < 4 Walking/Shop/Light housework Past Surgical History Surgical History Repair of umbilical hernia (07/28/10) Status post cholecystectomy Fusion of spine LUMBAR X 2 H/O parathyroidectomy History of arthroscopy LEFT KNEE History of cystoscopy Left ureteroscopy, basket stone, cystoscopy, left stent exchange: 11/09/16: LMA#5 atraumatic History of neck surgery NERVE BLOCK FOR HEADACHES Past Anesthesia History No Family Hx of Anesthesia Complications and Other Patient report that x 2 surgeries, post-op low O2 saturations. No similar issues with multiple other surgeries/anesthesia. History of PONV No Hx of PONV and No Hx of Motion Sickness Social History Smoking Status: Heavy tobacco smoker tobacco type: cigarettes Smoking cigarettes per day: 30-40 CIGS/DAY X 20+ YRS Do You Dip or Chew Tobacco: No Hx Alcohol Use: No Hx Substance Use: No Review of Systems Reflux controlled. Patient denies chest pain, shortness of breath, cough, wheezing, palpitations. Physical Exam Vital Signs VITALS BP 120/76 P 79 TEMP 97.8 SP02 96%RA RESP 20 PHYSICAL Full neck and c-spine range of motion. Full TMJ range of motion. TMD 3.5 finger breaths Mallampati Score 2 Dentition: full dentures upper/lower; edentulous Lungs: clear throughout to auscultation Cardiac: regular rate and rhythm, no murmurs noted Spine: normal Carotid arteries: negative bruit Extremities: no edema Thick neck Testing Laboratory Results 09/17/18 HGBA1C 6.1% Echocardiogram Date: 11/03/16 LVEF 55-59%. No significant valvular disease. Grade I DD. Stress Test Date: 01/15/16 Type: nuclear (Lexiscan) LVEF 64%. Fixed inferior perfusion defect which in light of normal gated wall motion and the appearance of the raw data image is likely due to attenuation artifact. No evidence of inducible ischemia. 74% MPHR.
[2018-11-28 10:37] LABS: Basophils # (auto) 0.01 K/uL (0-0.2); Basophils % (auto) 0.1 %; Eosinophils # (auto) 0.01 K/uL (0-0.5); Eosinophils % (auto) 0.1 %; Hematocrit (blood only) 44.7 % (42-52); Hemoglobin 15.5 g/dL (14.0-18.0); Immature Granulocytes # (auto) 0.16 K/uL (0.00-0.02); Immature Granulocytes % (auto) 0.8 %; Lymphocytes # (auto) 1.46 K/uL (1.2-3.4); Lymphocytes % (auto) 7.5 %; Mean Corpuscular Hemoglobin 33.3 pg (25-34); Mean Corpuscular Hgb Conc 34.7 g/dL (32-36); Mean Corpuscular Volume 96.1 fL (80-100); Mean Platelet Volume 9.7 fL (7.4-10.4); Monocytes % (auto) 8.3 %; Neutrophils # (auto) 16.15 K/uL (1.4-6.5); Neutrophils % (auto) 83.2 %; Platelet Count 260 K/uL (130-400); RDW Coefficient of Variation 14.1 % (11.5-14.5); RDW Standard Deviation 49.3 fL (36.4-46.3); Red Blood Count 4.65 M/uL (4.7-6.1); White Blood Count 19.39 K/uL (4.8-10.8)
[2018-11-28 10:44] LABS: BUN Creatinine Ratio 14.4 (10-20); Calcium 9.2 mg/dl (8.5-10.1); Est GFR (African American) 46.7; Est GFR (Non-African American) 40.3; Potassium 3.7 mmol/L (3.5-5.1)
[2018-11-28 10:52] LABS: Partial Thromboplastin Ratio 0.9; Partial Thromboplastin Time 23.1 Seconds (21.0-31.0); Prothrombin Time 10.1 Seconds (9.0-12.0)
--- NOTE | 2018-11-28 11:02 | XRay Report ---
XR chest Pre-admission PA/Lat CLINICAL HISTORY: pat preoperative COMPARISON STUDY: CT 08/01/2018 FINDINGS: Mild emphysematous change. Slight chronic interstitial fibrotic change. No focal infiltrate . Minimal platelike atelectasis left base. IMPRESSION: Chronic and emphysematous change. No acute process. The above report was generated using voice recognition software. It may contain grammatical, syntax or spelling errors. Electronically signed by: Esequiel Biggs M.D. 11/28/2018 11:01 AM
--- NOTE | 2018-12-07 16:28 | History and Physical Report ---
DATE OF ADMISSION: 12/10/2018 CHIEF COMPLAINT: Lower extremity difficulty, paresthesias, numbness, tingling. He has significant spinal stenosis of spine. He is here for elective surgery. PAST MEDICAL HISTORY: Positive for diabetes, kidney disease, hypertension, COPD. PAST SURGICAL HISTORY: Back surgery x2, cholecystectomy, kidney stones, hernia repair. ALLERGIES: ADVAIR. FAMILY HISTORY: Heart disease, diabetes. SOCIAL HISTORY: . Rarely drinks. Significant cigarette smoking, has not stopped. TWELVE-SYSTEM REVIEW OF SYSTEMS: No fevers, sweats, or chills. Ear, nose and throat negative. Denies chest pain or palpitations. No asthma or wheezing. No shortness of breath. No nausea or vomiting, no urgency or frequency. He has musculoskeletal joint pain and neurogenic claudication. MEDICATIONS: Scanned into the computer. PHYSICAL EXAMINATION: GENERAL: He is 5 feet 4 inches, 240 pounds. VITAL SIGNS: Blood pressure 130/80, pulse 80, respirations 16. HEENT: Pupils react to light and accommodation. Ear, nose and throat clear. ABDOMEN: Soft, nontender, bowel sounds present. EXTREMITIES: He has weakness of quadriceps function, weakness of plantarflexion as well. IMAGES: Demonstrate severe stenosis. PLAN: Includes a laminectomy L3-L5, lumbar spine.
[~2018-12-10 08:22] MED LIST changes: +CEFAZOLIN 2000MG 2,000 MG/15 ML SYR IV SCH; -FLUT1INH7 INH; -GLC/500 PO; -GLC500 PO; -IPRASOL4 INH; -LISI-461 PO; -LISI-787 PO; -LPT20 PO; +LR 15ML/HR IV SCH; -NRN800 PO; -OMEP20CA9 PO; -POTA20TA13 PO; +SODIUM CHLORIDE 0.9% 1,000 ML IV SCH; -TIOT1SPR INH; -VNTHFA/IN INH
[2018-12-10] MEDS ORDERED: IPRATROPIUM BROMIDE NEB SOLN 0.02% 2.5 ML VIAL NEB STA (09:16)
[2018-12-10] MEDS ORDERED: ATROPINE SULFATE 0.1 MG/ML 10ML SYR IV PRN (09:28)
[2018-12-10] MEDS ORDERED: ONDANSETRON INJ 2 MG/ML 2 ML VIAL IV PRN ×2 (09:28→13:40)
[2018-12-10] MEDS ORDERED: HYDROmorphone INJ 1 MG/ML SYRINGE IV PRN (09:28)
[2018-12-10 09:32] LABS: Hematocrit (blood only) 44.7 % (42-52); Hemoglobin 15.8 g/dL (14.0-18.0); Mean Corpuscular Hemoglobin 33.8 pg (25-34); Mean Corpuscular Volume 95.7 fL (80-100); Mean Platelet Volume 9.3 fL (7.4-10.4); Platelet Count 208 K/uL (130-400); RDW Coefficient of Variation 13.5 % (11.5-14.5); RDW Standard Deviation 46.6 fL (36.4-46.3); Red Blood Count 4.67 M/uL (4.7-6.1); White Blood Count 10.59 K/uL (4.8-10.8)
[2018-12-10 09:33] LABS: Basophils # (auto) 0.07 K/uL (0-0.2); Basophils % (auto) 0.7 %; Eosinophils # (auto) 0.21 K/uL (0-0.5); Immature Granulocytes # (auto) 0.08 K/uL (0.00-0.02); Immature Granulocytes % (auto) 0.8 %; Lymphocytes # (auto) 2.32 K/uL (1.2-3.4); Lymphocytes % (auto) 21.9 %; Monocytes # (auto) 1.12 K/uL (0.11-0.59); Monocytes % (auto) 10.6 %; Neutrophils # (auto) 6.79 K/uL (1.4-6.5)
[2018-12-10 09:45] LABS: Mean Corpuscular Hgb Conc 35.3 g/dL (32-36)
[2018-12-10] MEDS ORDERED: fentaNYL citrate 100 MCG/2 ML VIAL ONE (09:57)
[2018-12-10] MEDS ORDERED: PROPOFOL IV EMULSION 10 MG/ML 20 ML VIAL IV ONE (09:57)
[2018-12-10] MEDS ORDERED: ROCURONIUM BROMIDE 10 MG/ML 5 ML VIAL ONE ×3 (09:57→12:01)
[2018-12-10] MEDS ORDERED: ONDANSETRON INJ 2 MG/ML 2 ML VIAL ONE (09:57)
[2018-12-10] MEDS ORDERED: GLYCOPYRROLATE 0.2 MG/ML VIAL ONE (09:57)
[2018-12-10] MEDS ORDERED: NEOSTIGMINE METHYLSULFATE 5 MG/5 ML SYR ONE (09:57)
[2018-12-10] MEDS ORDERED: MIDAZOLAM HCL 1 MG/ML 2ML VIAL ONE (09:57)
[2018-12-10] MEDS ORDERED: LIDOCAINE HCL 2% 2 ML VIAL/AMP(20MG/ML) INFIL ONE (09:57)
[2018-12-10] MEDS ORDERED: DEXAMETHASONE SOD INJ 4 MG/ML VIAL ONE (09:57)
[2018-12-10] MEDS ORDERED: THROMBIN FOR SOLN 20000 UNIT KIT ONE (10:38)
[2018-12-10] MEDS ORDERED: BUPIVACAINE 0.5 % 5 MG/1 ML MPF 30ML VIAL ONE (10:38)
[2018-12-10] MEDS ORDERED: GELATIN SPONGE SZ 100 ONE (10:38)
[2018-12-10] MEDS ORDERED: VANCOMYCIN HCL 1000MG/20ML VIAL ONE (10:39)
[2018-12-10] MEDS ORDERED: BACITRACIN INJ 50,000 UNIT VIAL ONE (10:39)
--- NOTE | 2018-12-10 10:41 | History & Physical Bridge Note ---
Date of Service December 10, 2018 History & Physical Bridge Note I have examined the patient, reviewed the History & Physical and in the interval since the performance of the History & Physical I have noted the following changes of clinical significance: no changes noted
--- NOTE | 2018-12-10 12:28 | Post Operative Brief Note ---
PG Immediate Post Op with CF Date of Surgery December 10, 2018 Pre & Post Diagnosis Operation Date: 12/10/18 10:10 Pre-Op Diagnosis: Spinal Stenosis Post-Op Diagnosis: Spinal Stenosis I identified the patient and participated in the time-out.: Yes Procedure Operation Date: 12/10/18 10:10 Actual Procedures p L3-L4, L4-L5 Laminectomy - Corby Viramontes DO Surgeon Corby Viramontes DO Drill Press Tender brody Estimated Blood Loss 100 Findings Consistent with Post-Op Diagnosis Specimens Specimen Description: none per surgeon Drains Hemovac Drain Overlapping Procedure I was immediately available: during the entire case.
--- NOTE | 2018-12-10 12:52 | Anesthesiology Progress Note ---
Date of Service December 10, 2018 Anesthesia Post Procedure Vital Signs Vital Signs: Temp Pulse Pulse Resp BP Pulse Ox 12/10/18 12:33 36.6 C 90 21 141/89 H 97 12/10/18 09:41 82 18 97 12/10/18 08:58 36.6 C 90 20 163/99 H 98 Pain Intensity Lower Back: Pain Intensity: 0 Transfer of Care Handoff Completed per policy Notes Mental Status: alert / awake / arousable and participated in evaluation Patient Amnestic to Procedure: Yes Nausea / Vomiting: adequately controlled Pain: adequately controlled Airway Patency, RR, SpO2: stable & adequate BP & HR: stable & adequate Hydration State: stable & adequate Anesthetic Complications: no major complications apparent and Pt Satisfied with anesthetic care
--- NOTE | 2018-12-10 12:55 | Fluoroscopy Report ---
FL spine 1V any level CLINICAL HISTORY: 58 years-old Male presenting with L3-L5 LAMI. TECHNIQUE: 1 fluoroscopic image(s) recorded as part of an intraoperative procedure. COMPARISON: CT from 11/16/2018. FINDINGS/IMPRESSION: Surgical ensure indication projects over the mid upper lumbar spine. Transpedicular [place]oenrock fixati on in the lower lumbar spine. Decision to be at the L5-S1 level on the prior CT. Please see surgical report for further details. Fluoroscopy dosage (mGy): 0.84. Fluoroscopy time: 1.8 seconds. Number or time of high level fluoroscopy (HLF), digital spot, or digital subtraction images: 0. Electronically signed by: Sudeep Solis M.D. 12/10/2018 12:54 PM
--- NOTE | 2018-12-10 13:01 | Operative Report ---
DATE OF OPERATION: 12/10/2018 PREOPERATIVE DIAGNOSIS: Severe spinal stenosis lumbar spine L3-L5. POSTOPERATIVE DIAGNOSIS: Severe spinal stenosis lumbar spine L3-L5. PROCEDURE: Include lumbar spine laminectomy, foraminotomy, partial facetectomy, decompression of nerve roots from L3-L4 and from L4-L5 lumbar spine. SURGEON: Corby Viramontes DO PATENTED HOGSHEAD ASSEMBLER: Bennett Hinton PA-C. COMPLICATIONS: Zero. BLOOD LOSS: 100 mL. DESCRIPTION OF PROCEDURE: The patient was taken to the operating room, general intubated anesthetic provided to the patient, placed prone on [facility] table, prepped and draped sterile. We made a formal timeout. Made a skin incision and fascial incision. The fascial incision came right down on the lamina. ____ found the end of his prior decompression, we did a formal decompression of the L3-4 interspace including all L3-L4 and also down at L5-S1. The L5 area was more of revision strategies. We took off ligamentum flavum. We took off bone. We did not destabilize the spine. We irrigated, closed in layers over vancomycin powder and over a Hemovac drain with 1 Vicryl suture, 2-0 and 3-0 nylon in the skin. Sterile dressings applied. The patient extubated to PACU, improved, stable condition. There were no complications. I attest to the content of the Intraoperative Record and any orders documented therein. Any exception s are noted below.
[2018-12-10] MEDS: fentaNYL citrate 100 MCG/2 ML VIAL IV PRN ×2 (13:05→13:10)
[2018-12-10] MEDS ORDERED: DO NOT ADMINISTER PNEUMOCOCCAL VACCINE PRN (13:40)
[2018-12-10] MEDS ORDERED: ALBUTEROL HFA 8 GM INHALER INH PRN (13:40)
[2018-12-10] MEDS ORDERED: BISACODYL 10 MG SUPP PR PRN (13:40)
[2018-12-10] MEDS ORDERED: FAMOTIDINE 20 MG TAB PO PRN (13:40)
[2018-12-10] MEDS ORDERED: NALOXONE HCL 0.4 MG/1 ML VIAL/CARP IV PRN (13:40)
[2018-12-10] MEDS ORDERED: ALBUT/IPRATROP 3MG/0.5MG NEB 3 ML VIAL INH PRN (13:40)
[2018-12-10] MEDS ORDERED: MAGNESIUM HYDROXIDE SUSP 30 ML UDC PO PRN (13:40)
[2018-12-10] MEDS ORDERED: PROMETHAZINE HCL 12.5 MG in SODIUM CHLORIDE 0.9% 50 ML IV PRN (13:40)
[2018-12-10] MEDS ORDERED: ALUMINUM/MAGNESIUM SUSP 30 ML UDC PO PRN (13:40)
[2018-12-10] MEDS ORDERED: SOD PHOSPHATE/SOD BIPHOSPHATE ENEMA 132 ML BTL PR PRN (13:40)
[2018-12-10] MEDS ORDERED: ONDANSETRON 4 MG OD TAB PO PRN (13:40)
[2018-12-10] MEDS ORDERED: DO NOT ADMINISTER FLU VACCINE PRN (13:40)
[2018-12-10] MEDS: SODIUM CHLORIDE 0.9% 1000ML 1,000 ML IV SCH (13:50)
[2018-12-10] MEDS ORDERED: PHARMACY GLYCEMIC MGMT CONSULT PRN (14:15)
[2018-12-10] MEDS ORDERED: GLUCOSE 10 TABS/TUBE PO PRN (14:45)
[2018-12-10] MEDS ORDERED: GLUCAGON FOR INJ 1 MG VIAL IM PRN (14:45)
[2018-12-10] MEDS ORDERED: DEXTROSE 50% 50 ML SYRINGE IV PRN (14:45)
[2018-12-10] MEDS ORDERED: INSULIN GLARGINE SOLOSTAR 100 UNITS/ML 3 ML PEN SC ONE ×2 (14:45→21:00)
[2018-12-10] MEDS ORDERED: CARBOHYDRATES FOR HYPOGLYCEMIA PO PRN (14:45)
[2018-12-10] MEDS ORDERED: GLUCOSE 40% GEL 15 GM TUBE PO PRN (14:45)
--- NOTE | 2018-12-10 14:54 | Pharmacy Report ---
Glycemic Control Consultation - Date of Service December 10, 2018 - Scope Scope: Glycemic Pharmacist consulted for glycemic control and to write orders per [facility] inpatient glycemic control protocol - Objective Weight: 111.839 kg Accuchecks BSG (last 24hrs): 12/10/18 12/10/18 12/10/18 08:44 12:35 13:56 POC Glucose 114 H 132 H 113 H - Recent Pertinent Medications Outpatient Anti-diabetic Regimen: * Metformin 500 mg po daily * A1c ordered for 12/11/18 Risk Factors for Insulin Resistance: * Steroids: dexamethasone 8 mg IV preop (vended and not returned to [facility] therefore assume was administered), then prednisone 10 mg po q8h x3 doses * Infection: cefazolin periop * Recent Surgery: POD 0 s/p lumbar decompression and laminectomy * Diet: T2DM - Assessment & Plan Assessment & Plan: ASSESSMENT: * 58 yo M with T2DM with unknown outpatient control on one oral agent as an outpatient * Pt is maintained on oral antidiabetic agent as an outpatient * Oral agents are not recommended for inpatient use d/t drug interactions, changing PO intake, and difficulty titrating for acute hyper/hypoglycemia. ADA recommends re-initiating outpatient oral agents 1-2 days prior to discharge if/when appropriate if they were held on admission. * Will hold oral agents for admission and utilize SQ basal bolus insulin regimen which is the recommended regimen for inpatient glycemic control. * Will utilize more stringent goal of 110-140mg/dL as tighter glycemic control is warranted to facilitate wound/infection healing. * Steroid dose this AM (and ongoing) anticipated to increase insulin resistance (in addition to physiologic stress due to surgery) * Will initiate Lantus at 0.25 units/kg x1 and provide supplemental Lantus this PM for BSG > 140 mg/dL * Will initiate Novolog at weight-based moderate stress estimate and add an overnight check PLAN FOR INPATIENT GLYCEMIC CONTROL: * Hold outpatient oral diabetes medications. Anticipate ability to resume metformin on POD 2, assuming SCr OK. * Basal insulin: Lantus 28 units SC x1 now. Additional tonight based on BSG. * 0 units for BSG less than 140 mg/dL * 5 units for BSG 140-180 mg/dL * 10 units for BSG 180 mg/dL or greater * Bolus insulin * NovoLog per scale ACHS or Q6hrs while NPO with one overnight check * Goal Range: Low 110 mg/dL - High 140 mg/dL * Correction Factor: 20 mg/dL/unit * Nutritional / Prandial insulin per carb ratio of 1 unit per 7 grams CHO consumed * Please note that the plan above was derived based on current level of insulin resistance and hospital stress. These recommendations are appropriate for inpatient admission only. Plan of care upon discharge will need to be reassessed to avoid potential outpatient hypo/hyperglycemia. Thank you.
[2018-12-10] MEDS: GABAPENTIN 600 MG TAB PO SCH ×3 (15:30→20:51)
[2018-12-10] MEDS: predniSONE 10 MG TABLET PO SCH ×2 (15:31→22:22)
[2018-12-10] MEDS: ACETAMINOPHEN 1,000 MG/100 ML VIAL IV PRN (15:37)
[2018-12-10] MEDS: CEFAZOLIN 2000MG 2,000 MG/15 ML SYR IV SCH (18:15)
[2018-12-10] MEDS: INSULIN ASPART 100 UNITS/ML 3 ML PEN SC SCH ×2 (18:26→20:56)
[2018-12-10] MEDS ORDERED: FINASTERIDE 5 MG TAB PO SCH (21:00)
[2018-12-10] MEDS ORDERED: FENOFIBRATE NANOCRYSTALLIZED 145 MG TABLET PO SCH (21:00)
[2018-12-10] MEDS ORDERED: POTASSIUM CHLORIDE 20 MEQ TABCR PO SCH (21:00)
[2018-12-10] MEDS ORDERED: ATORVASTATIN 20 MG TAB PO SCH (21:00)
[2018-12-10] MEDS ORDERED: DOCUSATE SODIUM/SENNA 50/8.6MG TAB PO SCH (21:00)
[2018-12-10] MEDS: FAMOTIDINE 20 MG TAB PO SCH (22:22)
[2018-12-11] MEDS: ACETAMINOPHEN 1,000 MG/100 ML VIAL IV PRN ×2 (00:05→08:52)
[2018-12-11] MEDS: SODIUM CHLORIDE 0.9% 1000ML 1,000 ML IV SCH (01:48)
[2018-12-11] MEDS: CEFAZOLIN 2000MG 2,000 MG/15 ML SYR IV SCH (01:48)
[2018-12-11] MEDS ORDERED: INSULIN ASPART 100 UNITS/ML 3 ML PEN SC ONE (02:00)
[2018-12-11] MEDS: predniSONE 10 MG TABLET PO SCH (05:32)
[2018-12-11] MEDS ORDERED: POLYETHYLENE (MIRALAX) 17 GM PACK PO SCH (06:00)
[2018-12-11] MEDS: TIOTROPIUM BROMIDE 5 PUFF/90 MCG INH INH SCH ×3 (06:14→08:47)
--- NOTE | 2018-12-11 07:55 | Anesthesiology Progress Note ---
Date of Service December 11, 2018 Anesthesia Post Procedure Vital Signs Vital Signs: Temp Pulse Pulse Pulse Resp BP BP 12/11/18 07:18 36.7 C 73 16 123/75 12/11/18 02:28 36.4 C L 76 18 123/79 12/11/18 00:15 71 18 12/10/18 23:22 36.4 C L 92 H 18 148/84 H 12/10/18 19:14 36.7 C 89 17 154/88 H 12/10/18 16:41 36.5 C 75 143/88 H 12/10/18 15:47 36.5 C 85 18 166/85 H 12/10/18 14:08 76 20 176/94 H 12/10/18 13:57 36.7 C 89 19 161/80 H 12/10/18 13:30 88 17 153/86 H 12/10/18 13:20 36.1 C L 74 20 149/89 H 12/10/18 13:10 74 16 144/88 H 12/10/18 13:00 79 14 147/89 H 12/10/18 12:50 81 18 139/93 12/10/18 12:40 84 20 154/93 H 12/10/18 12:33 36.6 C 90 21 141/89 H 12/10/18 09:41 82 18 12/10/18 08:58 36.6 C 90 20 163/99 H Pulse Ox 12/11/18 07:18 100 12/11/18 02:28 95 12/11/18 00:15 98 12/10/18 23:22 95 12/10/18 19:14 96 12/10/18 16:41 94 12/10/18 15:47 95 12/10/18 14:08 98 12/10/18 13:57 98 12/10/18 13:30 98 12/10/18 13:20 98 12/10/18 13:10 98 12/10/18 13:00 98 12/10/18 12:50 100 12/10/18 12:40 99 12/10/18 12:33 97 12/10/18 09:41 97 12/10/18 08:58 98 Pain Intensity Lower Back: Pain Intensity: 7 Notes Mental Status: alert / awake / arousable and participated in evaluation Patient Amnestic to Procedure: Yes Nausea / Vomiting: adequately controlled Pain: adequately controlled Airway Patency, RR, SpO2: stable & adequate BP & HR: stable & adequate Hydration State: stable & adequate Anesthetic Complications: no major complications apparent and Pt Satisfied with anesthetic care
[2018-12-11] MEDS: GABAPENTIN 600 MG TAB PO SCH (08:43)
[2018-12-11] MEDS: INSULIN ASPART 100 UNITS/ML 3 ML PEN SC SCH (08:57)
[2018-12-11] MEDS ORDERED: PANTOprazole 40 MG TAB PO SCH (09:00)
[2018-12-11] MEDS ORDERED: CeleBREX 200 MG CAP PO SCH (09:00)
[2018-12-11] MEDS ORDERED: LISINOPRIL 40 MG TAB PO SCH (09:00)
[2018-12-11] MEDS ORDERED: hydroCHLOROthiazide 25 MG TAB PO SCH (09:00)
--- NOTE | 2018-12-11 09:08 | Discharge Summary ---
He is alert, oriented, minimal complaints of pain. Up and ambulatory. Out smoking cigarettes. He is actually quite stable. Historically actually, he took the stairs off the third floor out to smoke a cigarette last evening, so I think he has passed physical therapy. He has no fevers, sweats, chills, chest pain, shortness of breath. Wound clean, dry. ASSESSMENT: Status post rigorous lumbar spine decompression. PLAN: Up and ambulatory, ice to spine. MEDICATIONS AT HOME: We will discharge him home later on today. INSTRUCTIONS: Warnings have been given to him at length.
[2018-12-11] MEDS: FAMOTIDINE 20 MG TAB PO SCH (10:39)
[2018-12-11] MEDS ORDERED: INSULIN GLARGINE SOLOSTAR 100 UNITS/ML 3 ML PEN SC ONE ×2 (11:30→21:00)
== END 2018-12-11 10:57 | disposition home or self-care (01) ==
LOC: ASU 08:22 → 3E 08:22

== ENCOUNTER 2020-10-19 14:48 | Inpatient (IN) ==
[2020-10-19] MEDS ORDERED: SODIUM CHLORIDE 0.9% 1000ML 1,000 ML IV ONE (15:30)
--- NOTE | 2020-10-19 15:35 | Emergency Department Note ---
Impression & Plan Sepsis, Small cell lung cancer, Pancytopenia, Hemoptysis, Hypoxia, Symptomatic anemia ED Provider Note NAME: CESAR BENITEZ AGE: 60 SEX: M : 1960 ARRIVES VIA: Walk-In INFORMANT: Patient ED PROVIDER(S): German Sorto DO CHIEF COMPLAINT: Shortness of breath coughing up blood HPI: Patient is a 60-year-old male who presents the ER for coughing up blood for the past week. He does have some shortness of breath but this is unchanged. Denies any belly pain, nausea, vomiting, or diarrhea. No dysuria, urgency, or frequency. He is coughing up dime to quarter size clots. This happened 3 times an hour. It is gradually getting worse. Denies any blood thinners. 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 ROS: See above HPI for pertinent positives & negatives. A total of 10 systems reviewed and were otherwise negative. PAST MEDICAL HISTORY:See Below PAST SURGICAL HISTORY:See Below FAMILY HISTORY:See Below SOCIAL HISTORY:See Below HOME MEDICATIONS:See Below ALLERGIES:See Below VITALS:See Below PHYSICAL EXAMINATION: GENERAL: Sitting up in bed, alert, chronically ill-appearing, moderate distress EYE EXAM: normal conjunctiva. PERRL and EOM's grossly intact. OROPHARYNX: no exudate, no erythema, lips, buccal mucosa, and tongue normal and mucous membranes are moist NECK: supple, no nuchal rigidity, no adenopathy, non-tender LUNGS: Rhonchi bilaterally. Normal chest wall mechanics HEART: no murmurs, S1 normal and S2 normal ABDOMEN: abdomen soft, non-tender, normo-active bowel sounds, no masses, no rebound or guarding. UPPER EXTREMITIES: upper extremities are grossly normal. LOWER EXTREMITIES: No pitting edema. NEURO EXAM: Normal sensorium, cranial nerves II-XII grossly intact, normal speech, no gross weakness of arms, no gross weakness of legs. MEDICAL DECISION MAKING: Patient is a 60-year-old male has stated above like presents the ER for not. He is to be tachycardic and hypoxic. Specimen to the there is no cannula initially he was not febrile upon presentation. Labs show pancytopenia with a hemoglobin of 6 and a platelet count of he was ordered for 2 units of PRBCs typed and crossed as well as 1 unit of plate notes BMP he with mild hypokalemia 3.2. Creatinine was up at 1.9 consistent with previous. LFTs bilirubin was lactate was normal lipase was abnormal. Covid was negative. CT angio was performed due to the hemoptysis which showed no obvious source of the bleeding. There was concern for some possible infiltrates. Patient was given cefepime and fluids. He was updated bedside. Heart rate trended down. Discussed with the hospitalist and the tobacco checkout clerk and patient was eventually accepted to be admitted for further work-up. Triage Nursing notes reviewed. Limited review of prior medical records performed Vital Signs: reviewed and remarkable for tachycardic, febrile and hypoxic Differential diagnosis: Differential diagnosis includes etiologies such as sepsis, UTI, pneumonia, metabolic, electrolyte abnormalities, cardiac sources, intracerebral event, toxicologic, neurological, as well as others were entertained. ER treatment provided: See below Diagnostics interpreted by me: ECG: Sinus tachycardia rate 01 21 Normal axis No PVCs QTC 448 Cardiac Monitoring: An order was placed for continuous cardiac monitoring. The monitor shows a rate of 126 with sinus rhythm. Laboratory studies: As stated above and show below. Imaging studies: CT angio of the chest as discussed above Consultation(s): Discussed with Dr. Hayden Adair who agreed with admission from pulmonology standpoint Discussed with Mariah Denney for admission to the hospital service Procedures: none Critical Care: I have personally spent 40 minutes of critical care time in the direct management of this patient. This includes bedside care, interpretation of diagnostic studies, and testing, discussion with consultants, patient, and family members, and other required patient management activities. This 40 minutes is in excess of all separately billable procedures. Past Med/Surg History Medical History (Updated 10/19/20 @ 20:14 by German Sorto DO) Arthritis Asthma BPH (benign prostatic hyperplasia) Cholelithiases Chronic back pain CKD (chronic kidney disease), stage III COPD (chronic obstructive pulmonary disease) Depression Dyslipidemia Erectile dysfunction Essential hypertension GERD (gastroesophageal reflux disease) controlled Hematuria History of nicotine dependence History of renal calculi Hyperlipidemia Hyperparathyroidism Kidney stone on left side Lumbar spinal stenosis Obesity Osteoarthritis of shoulders, bilateral PSVT (paroxysmal supraventricular tachycardia) Pulmonary emphysema Sciatica Sleep apnea CPAP HS + 1L O2 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 Tobacco use Type 2 diabetes mellitus NIDDM Umbilical hernia Vitamin D deficiency Surgical History Fusion of spine LUMBAR X 2 H/O parathyroidectomy History of arthroscopy LEFT KNEE History of bronchoscopy (07/23/20) Fine Needle Aspiration History of colonoscopy (11/19/12) History of colonoscopy (07/12/17) History of cystoscopy Left ureteroscopy, basket stone, cystoscopy, left stent exchange: 11/09/16: LMA#5 atraumatic History of neck surgery NERVE BLOCK FOR HEADACHES Repair of umbilical hernia (07/28/10) S/P laminectomy S/P parathyroidectomy S/P umbilical hernia repair, follow-up exam Status post cholecystectomy Status post lumbar spinal fusion Family History Father , Passed Age 73 Heart disease Hypertension Mother , Passed Age 57 Heart disease Hypertension Lung disease Sister Breast cancer Sister No problems noted. Uncle Throat cancer Aunt Bone cancer Sister , Passed Age 40 due to Lung Cancer Lung cancer Brother No problems noted. Son No problems noted. Son No problems noted. Son No problems noted. Social History Smoking Status: Current every day smoker Tobacco Type: Cigarettes packs per day: 2; Years Smoked: 45; Cigarettes Per Day: 40; Second Hand Exposure: Yes; Hx Alcohol Use: No Hx Substance Use: No Preferred Language: Russian Communication Ability: Effective Visual Impairment: No Limitations Production Support Analyst Required: No Beliefs That Will Affect Care: None marital status: Current Living Situation: Spouse current occupational status: disabled How many Children do You have: 3 Feels Safe at Home: Yes caffeine: Yes (12 cups per day) during the past year weight has: remained stable Dental Care, Regularly: No Physical Activity Frequency: Does not Exercise Assistive Devices: None Allergies Allergies Allergy/AdvReac Type Severity Reaction Status Date / Time fluticasone Allergy Unknown throat and Verified 10/19/20 16:28 tongue swelling salmeterol Allergy Unknown throat and Verified 10/19/20 16:28 tongue swelling morphine AdvReac Severe Migraine Verified 10/19/20 16:28 Home Meds Home Medications Medication Instructions Recorded Confirmed albuterol sulfate 90 mcg/actuation 2 puff INHALATION Q6H PRN 07/10/18 10/19/20 aerosol inhaler ipratropium 0.5 mg-albuterol 3 mg 3 ml INHALATION QID PRN 07/10/18 10/19/20 (2.5 mg base)/3 mL nebulization soln acetaminophen 500 mg tablet 500 mg PO Q6H PRN 08/20/20 10/19/20 atorvastatin 40 mg tablet 40 mg PO QPM 08/20/20 10/19/20 glipizide 5 mg tablet 5 mg PO BID 08/20/20 10/19/20 metoprolol succinate 50 mg 50 mg PO DAILY 08/20/20 10/19/20 tablet,extended release 24 hr potassium chloride 20 mEq 20 meq PO BID 08/20/20 10/19/20 tablet,extended release torsemide 10 mg tablet 10 mg PO DAILY 08/20/20 10/19/20 dicyclomine 10 mg capsule 10 mg PO TID PRN 09/14/20 10/19/20 fexofenadine 180 mg tablet 180 mg PO DAILY PRN 09/14/20 10/19/20 (Kallie Allergy) ondansetron HCl 8 mg tablet 8 mg PO Q8H PRN 09/14/20 10/19/20 prochlorperazine maleate 10 mg 10 mg PO Q6H PRN 09/14/20 10/19/20 tablet (Compazine) gabapentin 600 mg tablet 600 mg PO TID tab 10/13/20 10/19/20 tamsulosin 0.4 mg capsule 0.4 mg PO DAILY 10/19/20 10/19/20 Previous Rx's Medication Instructions Recorded tiotropium bromide 2.5 2 puffs INHALATION DAILY #4 ml 01/11/19 mcg/actuation mist for inhalation (Spiriva Respimat) fluticasone furoate 200 1 inh INHALATION QAM #60 ea 05/14/19 mcg-vilanterol 25 mcg/dose inhalation powder (Breo Ellipta) azithromycin 250 mg tablet 250 mg PO MOWEFR 30 Days #18 tab 01/27/20 finasteride 5 mg tablet 5 mg PO DAILY #30 tab 05/13/20 Results & Data (ED) Vital Signs Vital Signs - 24 hr 10/19/20 14:58 10/19/20 15:22 10/19/20 15:30 Temperature 36.7 C Temperature Source Temporal Artery Scan Pulse Rate 119 H 119 H 122 H Pulse Rate [Right Finger] Pulse Rate from SpO2 Sensor Pulse Rhythm Regular Pulse Strength Normal Respiratory Rate 22 20 17 Respiratory Effort / Characteristics Non-Labored Spontaneous Respiratory Depth Normal Respiratory Pattern Regular Blood Pressure 146/74 H Blood Pressure [Right Arm] Blood Pressure Mean 98 Blood Pressure Mean [Right Arm] Blood Pressure Position Sitting Blood Pressure Position [Right Arm] Pulse Oximetry 91 92 Oxygen Delivery Method Room Air Oxygen Flow Rate 2 Sepsis Recent Fever Within 48 Hours No Sepsis New/Unexplained Change in Mental Status N/A Sepsis Action Taken by Nursing No Action Required Pulse Oximetry Post Tiitration 10/19/20 15:40 10/19/20 15:42 10/19/20 15:50 Temperature Temperature Source Pulse Rate 119 H 119 H Pulse Rate [Right Finger] Pulse Rate from SpO2 Sensor Pulse Rhythm Pulse Strength Respiratory Rate 22 21 Respiratory Effort / Characteristics Respiratory Depth Respiratory Pattern Blood Pressure Blood Pressure [Right Arm] Blood Pressure Mean Blood Pressure Mean [Right Arm] Blood Pressure Position Blood Pressure Position [Right Arm] Pulse Oximetry 94 2 L 96 Oxygen Delivery Method Room Air Oxygen Flow Rate 2 84 2 Sepsis Recent Fever Within 48 Hours Sepsis New/Unexplained Change in Mental Status Sepsis Action Taken by Nursing Pulse Oximetry Post Tiitration 93 10/19/20 16:00 10/19/20 16:10 10/19/20 16:20 Temperature Temperature Source Pulse Rate 119 H 118 H 116 H Pulse Rate [Right Finger] Pulse Rate from SpO2 Sensor 118 H 124 H 117 H Pulse Rhythm Pulse Strength Respiratory Rate 33 H 27 H 25 H Respiratory Effort / Characteristics Respiratory Depth Respiratory Pattern Blood Pressure Blood Pressure [Right Arm] Blood Pressure Mean Blood Pressure Mean [Right Arm] Blood Pressure Position Blood Pressure Position [Right Arm] Pulse Oximetry 96 91 98 Oxygen Delivery Method Oxygen Flow Rate Sepsis Recent Fever Within 48 Hours Sepsis New/Unexplained Change in Mental Status Sepsis Action Taken by Nursing Pulse Oximetry Post Tiitration 10/19/20 16:30 10/19/20 16:57 10/19/20 16:59 Temperature Temperature Source Pulse Rate 116 H 108 H Pulse Rate [Right Finger] 118 H Pulse Rate from SpO2 Sensor 117 H Pulse Rhythm Pulse Strength Respiratory Rate 27 H 12 25 H Respiratory Effort / Characteristics Non-Labored Respiratory Depth Normal Respiratory Pattern Regular Blood Pressure Blood Pressure [Right Arm] Blood Pressure Mean Blood Pressure Mean [Right Arm] Blood Pressure Position Blood Pressure Position [Right Arm] Pulse Oximetry 99 131 H Oxygen Delivery Method Nasal Cannula Oxygen Flow Rate 2 Sepsis Recent Fever Within 48 Hours Sepsis New/Unexplained Change in Mental Status Sepsis Action Taken by Nursing Pulse Oximetry Post Tiitration 10/19/20 17:28 10/19/20 17:29 10/19/20 17:44 Temperature 38 C H 38.2 C H Temperature Source Oral Oral Pulse Rate 117 H 117 H 119 H Pulse Rate [Right Finger] Pulse Rate from SpO2 Sensor 117 H 118 H Pulse Rhythm Pulse Strength Respiratory Rate 26 H 24 23 Respiratory Effort / Characteristics Respiratory Depth Respiratory Pattern Blood Pressure 121/72 121/72 107/67 Blood Pressure [Right Arm] Blood Pressure Mean 88 88 80 Blood Pressure Mean [Right Arm] Blood Pressure Position Blood Pressure Position [Right Arm] Pulse Oximetry 92 100 98 Oxygen Delivery Method Oxygen Flow Rate 2 3 Sepsis Recent Fever Within 48 Hours Sepsis New/Unexplained Change in Mental Status Sepsis Action Taken by Nursing Pulse Oximetry Post Tiitration 10/19/20 17:45 10/19/20 18:00 10/19/20 19:24 Temperature 38.7 C H 38.7 C H 37.0 C Temperature Source Oral Oral Oral Pulse Rate 121 H Pulse Rate [Right Finger] 119 H 110 H Pulse Rate from SpO2 Sensor Pulse Rhythm Pulse Strength Respiratory Rate 26 H 21 16 Respiratory Effort / Characteristics Non-Labored Respiratory Depth Normal Respiratory Pattern Blood Pressure 126/73 Blood Pressure [Right Arm] 126/78 Blood Pressure Mean 90 Blood Pressure Mean [Right Arm] 94 Blood Pressure Position Blood Pressure Position [Right Arm] Standing Pulse Oximetry 2 L 95 95 Oxygen Delivery Method Nasal Cannula Nasal Cannula Oxygen Flow Rate 2 2 Sepsis Recent Fever Within 48 Hours Sepsis New/Unexplained Change in Mental Status Sepsis Action Taken by Nursing Pulse Oximetry Post Tiitration Laboratory Data Result diagrams: 10/19/20 15:17 10/19/20 15:17 Lab Results 10/19/20 10/19/20 10/19/20 Range/Units 15:17 15:17 15:17 WBC 0.76 L* (4.8-10.8) K/uL RBC 1.94 L (4.7-6.1) M/uL Hgb 6.3 L* (14.0-18.0) g/dL Hct 18.6 L* (42-52) % MCV 95.9 (80-100) fL MCH 32.5 (25-34) pg MCHC 33.9 (32-36) g/dL RDW Std Deviation 54.4 H (36.4-46.3) fL RDW Coeff of Gregorio 15.9 H (11.5-14.5) % Plt Count 7 L* (130-400) K/uL Immature Gran % (Auto) 1.3 % Neut % (Auto) 15.9 % Lymph % (Auto) 44.7 % Braxton % (Auto) 28.9 % Eos % (Auto) 9.2 % Baso % (Auto) 0.0 % Neut # (Auto) 0.12 L* (1.4-6.5) K/uL Lymph # (Auto) 0.34 L (1.2-3.4) K/uL Braxton # (Auto) 0.22 (0.11-0.59) K/uL Eos # (Auto) 0.07 (0-0.5) K/uL Baso # (Auto) 0.00 (0-0.2) K/uL Immature Gran # (Auto) 0.01 (0.00-0.02) K/uL Absolute Nucleated RBC 0.03 H (0-0) K/uL Nucleated RBC % (auto) 4.4 % Platelet Estimate SIGNIFIC DECREASED (Normal) RBC Morphology Unremarkable APTT 26.7 (21.0-31.0) Seconds PTT Ratio 1.0 Sodium 134 L (136-145) mmol/L Potassium 3.2 L (3.5-5.1) mmol/L Chloride 97 L (98-107) mmol/L Carbon Dioxide 28 (21-32) mmol/L Anion Gap 9.0 (3-11) BUN 17 (7-18) mg/dl Creatinine 1.96 H (0.6-1.4) mg/dl Est Cr Clr Drug Dosing Not Reportable Est GFR ( Amer) 41.8 ml/min Est GFR (Non-Af Amer) 36.1 ml/min BUN/Creatinine Ratio 8.5 L (10-20) Glucose 80 (70-99) mg/dl Lactate (0.4-2.0) mmol/L Calcium 9.5 (8.5-10.1) mg/dl Magnesium (1.8-2.4) mg/dl Total Bilirubin 0.8 (0.2-1) mg/dl AST 21 (15-37) U/L ALT 47 (12-78) U/L Alkaline Phosphatase 90 (45-117) U/L Total Protein 8.3 H (6.4-8.2) gm/dl Albumin 3.1 L (3.4-5.0) gm/dl Globulin 5.2 H (2.5-4.0) gm/dl Albumin/Globulin Ratio 0.6 L (0.9-2) Lipase 66 L (73-393) U/L COVID-19 Eval Order SARS-CoV-2 (PCR) (Negative) Blood Type Antibody Screen Crossmatch 10/19/20 10/19/20 10/19/20 Range/Units 15:17 15:30 15:30 WBC (4.8-10.8) K/uL RBC (4.7-6.1) M/uL Hgb (14.0-18.0) g/dL Hct (42-52) % MCV (80-100) fL MCH (25-34) pg MCHC (32-36) g/dL RDW Std Deviation (36.4-46.3) fL RDW Coeff of Gregorio (11.5-14.5) % Plt Count (130-400) K/uL Immature Gran % (Auto) % Neut % (Auto) % Lymph % (Auto) % Braxton % (Auto) % Eos % (Auto) % Baso % (Auto) % Neut # (Auto) (1.4-6.5) K/uL Lymph # (Auto) (1.2-3.4) K/uL Braxton # (Auto) (0.11-0.59) K/uL Eos # (Auto) (0-0.5) K/uL Baso # (Auto) (0-0.2) K/uL Immature Gran # (Auto) (0.00-0.02) K/uL Absolute Nucleated RBC (0-0) K/uL Nucleated RBC % (auto) % Platelet Estimate (Normal) RBC Morphology APTT (21.0-31.0) Seconds PTT Ratio Sodium (136-145) mmol/L Potassium (3.5-5.1) mmol/L Chloride (98-107) mmol/L Carbon Dioxide (21-32) mmol/L Anion Gap (3-11) BUN (7-18) mg/dl Creatinine (0.6-1.4) mg/dl Est Cr Clr Drug Dosing Est GFR ( Amer) ml/min Est GFR (Non-Af Amer) ml/min BUN/Creatinine Ratio (10-20) Glucose (70-99) mg/dl Lactate (0.4-2.0) mmol/L Calcium (8.5-10.1) mg/dl Magnesium 2.3 (1.8-2.4) mg/dl Total Bilirubin (0.2-1) mg/dl AST (15-37) U/L ALT (12-78) U/L Alkaline Phosphatase (45-117) U/L Total Protein (6.4-8.2) gm/dl Albumin (3.4-5.0) gm/dl Globulin (2.5-4.0) gm/dl Albumin/Globulin Ratio (0.9-2) Lipase (73-393) U/L COVID-19 Eval Order Covid19 at [facility] SARS-CoV-2 (PCR) NEGATIVE (Negative) Blood Type Antibody Screen Crossmatch 10/19/20 10/19/20 Range/Units 16:04 16:29 WBC (4.8-10.8) K/uL RBC (4.7-6.1) M/uL Hgb (14.0-18.0) g/dL Hct (42-52) % MCV (80-100) fL MCH (25-34) pg MCHC (32-36) g/dL RDW Std Deviation (36.4-46.3) fL RDW Coeff of Gregorio (11.5-14.5) % Plt Count (130-400) K/uL Immature Gran % (Auto) % Neut % (Auto) % Lymph % (Auto) % Braxton % (Auto) % Eos % (Auto) % Baso % (Auto) % Neut # (Auto) (1.4-6.5) K/uL Lymph # (Auto) (1.2-3.4) K/uL Braxton # (Auto) (0.11-0.59) K/uL Eos # (Auto) (0-0.5) K/uL Baso # (Auto) (0-0.2) K/uL Immature Gran # (Auto) (0.00-0.02) K/uL Absolute Nucleated RBC (0-0) K/uL Nucleated RBC % (auto) % Platelet Estimate (Normal) RBC Morphology APTT (21.0-31.0) Seconds PTT Ratio Sodium (136-145) mmol/L Potassium (3.5-5.1) mmol/L Chloride (98-107) mmol/L Carbon Dioxide (21-32) mmol/L Anion Gap (3-11) BUN (7-18) mg/dl Creatinine (0.6-1.4) mg/dl Est Cr Clr Drug Dosing Est GFR ( Amer) ml/min Est GFR (Non-Af Amer) ml/min BUN/Creatinine Ratio (10-20) Glucose (70-99) mg/dl Lactate 1.6 (0.4-2.0) mmol/L Calcium (8.5-10.1) mg/dl Magnesium (1.8-2.4) mg/dl Total Bilirubin (0.2-1) mg/dl AST (15-37) U/L ALT (12-78) U/L Alkaline Phosphatase (45-117) U/L Total Protein (6.4-8.2) gm/dl Albumin (3.4-5.0) gm/dl Globulin (2.5-4.0) gm/dl Albumin/Globulin Ratio (0.9-2) Lipase (73-393) U/L COVID-19 Eval Order SARS-CoV-2 (PCR) (Negative) Blood Type O Positive Antibody Screen NEGATIVE Crossmatch See Detail Administered Medications Discontinued Medications Acetaminophen (Acetaminophen 325 Mg Tab) 650 mg PO NOW STA Stop: 10/19/20 18:31 Last Admin: 10/19/20 18:58 Dose: Not Given Documented by: [id number] Acetaminophen (Acetaminophen 325 Mg Tab) Confirm Administered Dose 650 mg .ROUTE .STK-MED ONE Stop: 10/19/20 18:33 Last Admin: 10/19/20 18:37 Dose: 650 mg Documented by: [id number] Diphenhydramine HCl (Diphenhydramine 50 Mg/Ml Vial) 25 mg IV NOW STA Stop: 10/19/20 18:31 Last Admin: 10/19/20 18:59 Dose: 25 mg Documented by: [id number] Diphenhydramine HCl (Diphenhydramine 50 Mg/Ml Vial) Confirm Administered Dose 50 mg .ROUTE .STK-MED ONE Stop: 10/19/20 18:34 Last Admin: 10/19/20 18:43 Dose: 25 mg Documented by: [id number] Sodium Chloride (Nss 1000ml) 1,000 mls @ 999 mls/hr IV .Q1H1M ONE Stop: 10/19/20 16:30 Last Infusion: 10/19/20 16:46 Dose: 0 mls/hr Documented by: [id number] Admin: 10/19/20 15:44 Dose: 999 mls/hr Documented by: [id number] Sodium Chloride (Nss) 500 mls @ 999 mls/hr IV .Q31M STA Stop: 10/19/20 16:07 Last Admin: 10/19/20 15:44 Dose: Not Given Documented by: [id number] Cefepime HCl 2,000 mg/ Syringe 20 mls @ 5 mls/min IV NOW STA; Protocol Stop: 10/19/20 18:00 Last Admin: 10/19/20 19:23 Dose: 5 mls/min Documented by: [id number] Ioversol (Optiray 320 125ml) 119 ml IV ONCE ONE Stop: 10/19/20 16:57 Last Admin: 10/19/20 16:56 Dose: 1 ml Documented by: [id number] Potassium Chloride (Potassium Chloride Crtab 20 Meq Tabcr) 40 meq PO NOW STA Stop: 10/19/20 19:06 Last Admin: 10/19/20 19:23 Dose: 40 meq Documented by: [id number] Imaging Data Radiologist's Impression: Chest CTA 10/19/20 15:30 CT ANGIOGRAM OF THE CHEST CLINICAL HISTORY: coughing up blood COMPARISON STUDY: October 02, 2020 CT chest for guide of radiation therapy TECHNIQUE: Following the IV administration of 119 mL of Optiray, CT angiogram of the thorax was performed from the thoracic inlet to the lung bases utilizing the pulmonary embolus protocol. Images are reviewed in the axial, sagittal, and coronal planes. IV contrast was administered without complication. MIP imaging was performed. A dose lowering technique was utilized adhering to the principles of ALARA. CT DOSE: 811.61 mGycm FINDINGS: No definite filling defect is seen within pulmonary artery or its central branches however opacification of the main pulmonary artery is insufficient for adequate evaluation for pulmonary embolus. Respiratory motion artifact further degrades evaluation. Main pulmonary artery is normal in caliber. No evidence of right heart strain. Heart is normal in size without pericardial effusion. Moderate coronary calcifications are seen. There is no axillary, supra clavicle or internal mammary lymphadenopathy seen. 2.1 cm heterogeneous lymph node is again seen within prevascular space. The rest of mottled mediastinal lymph nodes are not significantly enlarged. There was no evidence of thoracic aortic dilatation. Scattered calcifications of aortic wall are seen. Visualized portion of thyroid gland shows no evidence of focal lesions. Esophagus is patulous. Small fat containing hiatal hernia is seen. Tracheobronchial tree is patent. Study is acquired during expiratory phase. Evaluation of lung parenchyma is limited due to motion artifact. Moderate centrilobular upper lobe predominant emphysema is seen. Interval development of scattered peribronchial airspace opacities within left upper lobe and lingula which might represent atelectasis and infiltrates. No evidence of pleural effusion Limited evaluation of upper abdomen shows splenic calcifications and no evidence of acute or mollities. Osseous structures: Multilevel degenerative changes of the spine IMPRESSION: 1. No definite central pulmonary embolus is seen however opacification within main pulmonary artery is insufficient for adequate evaluation of pulmonary embolus. 2. Limited evaluation of peripheral branches of pulmonary artery and lung parenchyma due to motion artifact. 3. Interval development of atelectasis and infiltrative opacities/pneumonia within left upper lobe and lingula. 4. Stable enlarged prevascular lymph node. 5. Emphysema. 6. Atherosclerosis. 7. The rest of findings as above. ACT 112: Negative or not required by law. The above report was generated using voice recognition software. It may contain grammatical, syntax or spelling errors. Electronically signed by: Madeline Weber DO 10/19/2020 5:26 PM Discharge Plan Visit Data Chief Complaint: Shortness of Breath/Dyspnea Stated Complaint: SOB,COUGHING,LOW OXYGEN ED Provider: German Sorto Discharge Problem: Sepsis, Small cell lung cancer, Pancytopenia, Hemoptysis, Hypoxia, Symptomatic anemia Forms Stand Alone Forms: [facility] Prescriptions Prescriptions: No Action glipizide 5 mg tablet 5 mg PO BID RF: 0 metoprolol succinate 50 mg tablet extended release 24 hr 50 mg PO DAILY RF: 0 potassium chloride 20 mEq tablet extended release 20 meq PO BID RF: 0 torsemide 10 mg tablet 10 mg PO DAILY RF: 0 atorvastatin 40 mg tablet 40 mg PO QPM RF: 0 acetaminophen 500 mg tablet 500 mg PO Q6H PRN (Reason: Pain) RF: 0 fexofenadine [Kallie Allergy] 180 mg tablet 180 mg PO DAILY PRN (Reason: allergies) RF: 0 ondansetron HCl 8 mg tablet 8 mg PO Q8H PRN (Reason: Nausea) RF: 0 prochlorperazine maleate [Compazine] 10 mg tablet 10 mg PO Q6H PRN (Reason: Nausea) RF: 0 gabapentin 600 mg tablet 600 mg PO TID RF: 0 Spiriva Respimat 2.5 mcg/actuation mist 2 puffs inhalation DAILY Qty: 4 RF: 6 Breo Ellipta 200-25 mcg/dose blister with device 1 inh inhalation QAM Qty: 60 RF: 5 finasteride 5 mg tablet 5 mg PO DAILY Qty: 30 RF: 1 dicyclomine 10 mg capsule 10 mg PO TID PRN (Reason: gastric upset) RF: 0 azithromycin 250 mg tablet 250 mg PO MOWEFR 30 Days Qty: 18 RF: 6 ipratropium-albuterol 0.5 mg-3 mg(2.5 mg base)/3 mL Solution For Nebulization 3 ml INHALATION QID PRN (Reason: Shortness Of Breath Or Wheezing) RF: 0 albuterol sulfate 90 mcg/actuation Hfa Aerosol Inhaler 2 puff INHALATION Q6H PRN (Reason: Shortness Of Breath Or Wheezing) RF: 0 tamsulosin 0.4 mg capsule 0.4 mg PO DAILY RF: 0 Referrals Referrals: Anibal Donato MD [Primary Care Provider] - Discharge Problem: Sepsis Qualifiers: Sepsis type: sepsis due to unspecified organism Sepsis acute organ dysfunction status: unspecified Qualified Code(s): A41.9 - Sepsis, unspecified organism
[2020-10-19] MEDS ORDERED: SODIUM CHLORIDE 0.9% 500 ML IV STA (15:37)
[2020-10-19 15:54] LABS: Alanine Aminotransferase 47 U/L (12-78); Albumin Level 3.1 gm/dl (3.4-5.0); Aspartate Aminotransferase 21 U/L (15-37); BUN Creatinine Ratio 8.5 (10-20); Blood Urea Nitrogen 17 mg/dl (7-18); Calcium 9.5 mg/dl (8.5-10.1); Carbon Dioxide 28 mmol/L (21-32); Chloride 97 mmol/L (98-107); Est GFR (African American) 41.8 ml/min; Est GFR (Non-African American) 36.1 ml/min; Glucose 80 mg/dl (70-99); Potassium 3.2 mmol/L (3.5-5.1); Sodium 134 mmol/L (136-145)
[2020-10-19 15:58] LABS: Albumin Globulin Ratio 0.6 (0.9-2); Alkaline Phosphatase 90 U/L (45-117); Bilirubin,Total 0.8 mg/dl (0.2-1); Globulin 5.2 gm/dl (2.5-4.0); Lipase 66 U/L (73-393); Total Protein 8.3 gm/dl (6.4-8.2)
[2020-10-19] MEDS ORDERED: SODIUM CHLORIDE 0.9% 250 ML IV PRN (16:11)
--- NOTE | 2020-10-19 16:13 | Electrocardiogram Report ---
Test Reason : Blood Pressure : / mmHG Vent. Rate : 121 BPM Atrial Rate : 121 BPM P-R Int : 138 ms QRS Dur : 096 ms QT Int : 316 ms P-R-T Axes : 050 044 067 degrees QTc Int : 448 ms Sinus tachycardia Incomplete right bundle branch block Borderline ECG When compared with ECG of 10-SEP-2020 03:34, No significant change was found Confirmed by Kyle Martino ([id number]) on 10/19/2020 4:13:20 PM Referred By: REFERRED SELF Confirmed By:Kyle Martino
[2020-10-19 16:15] LABS: Partial Thromboplastin Time 26.7 Seconds (21.0-31.0)
[2020-10-19 16:18] LABS: Mean Corpuscular Hgb Conc 33.9 g/dL (32-36)
[2020-10-19 16:25] LABS: Hematocrit (blood only) 18.6 % (42-52); Hemoglobin 6.3 g/dL (14.0-18.0); Mean Corpuscular Hemoglobin 32.5 pg (25-34); Mean Corpuscular Volume 95.9 fL (80-100); Nucleated RBC # (auto) 0.03 K/uL (0-0); Nucleated RBC % (auto) 4.4 %; Platelet Count 7 K/uL (130-400); RDW Coefficient of Variation 15.9 % (11.5-14.5); RDW Standard Deviation 54.4 fL (36.4-46.3); Red Blood Count 1.94 M/uL (4.7-6.1); White Blood Count 0.76 K/uL (4.8-10.8)
[2020-10-19 16:27] LABS: Eosinophils # (auto) 0.07 K/uL (0-0.5); Eosinophils % (auto) 9.2 %; Immature Granulocytes # (auto) 0.01 K/uL (0.00-0.02); Immature Granulocytes % (auto) 1.3 %; Lymphocytes # (auto) 0.34 K/uL (1.2-3.4); Lymphocytes % (auto) 44.7 %; Monocytes # (auto) 0.22 K/uL (0.11-0.59); Monocytes % (auto) 28.9 %; Neutrophils # (auto) 0.12 K/uL (1.4-6.5); Neutrophils % (auto) 15.9 %
[2020-10-19 16:29] LABS: Platelet Estimate SIGNIFIC DECREASED (Normal); RBC Morphology Unremarkable
[2020-10-19] MEDS ORDERED: OPTIRAY 320 125ml IV ONE (16:56)
--- NOTE | 2020-10-19 17:28 | CT Scan Report ---
CT ANGIOGRAM OF THE CHEST CLINICAL HISTORY: coughing up blood COMPARISON STUDY: October 02, 2020 CT chest for guide of radiation therapy TECHNIQUE: Following the IV administration of 119 mL of Optiray, CT angiogram of the thorax was perfo rmed from the thoracic inlet to the lung bases utilizing the pulmonary embolus protocol. Images are r eviewed in the axial, sagittal, and coronal planes. IV contrast was administered without complication . MIP imaging was performed. A dose lowering technique was utilized adhering to the principles of AL RENAE. CT DOSE: 811.61 mGycm FINDINGS: No definite filling defect is seen within pulmonary artery or its central branches however opacificat ion of the main pulmonary artery is insufficient for adequate evaluation for pulmonary embolus. Respi ratory motion artifact further degrades evaluation. Main pulmonary artery is normal in caliber. No ev idence of right heart strain. Heart is normal in size without pericardial effusion. Moderate coronary calcifications are seen. There is no axillary, supra clavicle or internal mammary lymphadenopathy seen. 2.1 cm heterogeneous lymph node is again seen within prevascular space. The rest of mottled mediastinal lymph nodes are no t significantly enlarged. There was no evidence of thoracic aortic dilatation. Scattered calcifications of aortic wall are seen . Visualized portion of thyroid gland shows no evidence of focal lesions. Esophagus is patulous. Small fat containing hiatal hernia is seen. Tracheobronchial tree is patent. Study is acquired during expiratory phase. Evaluation of lung parenc hyma is limited due to motion artifact. Moderate centrilobular upper lobe predominant emphysema is seen. Interval development of scattered peribronchial airspace opacities within left upper lobe and lingula which might represent atelectasis and infiltrates. No evidence of pleural effusion Limited evaluation of upper abdomen shows splenic calcifications and no evidence of acute or mollitie s. Osseous structures: Multilevel degenerative changes of the spine IMPRESSION: 1. No definite central pulmonary embolus is seen however opacification within main pulmonary artery is insufficient for adequate evaluation of pulmonary embolus. 2. Limited evaluation of peripheral branches of pulmonary artery and lung parenchyma due to motion a rtifact. 3. Interval development of atelectasis and infiltrative opacities/pneumonia within left upper lobe a nd lingula. 4. Stable enlarged prevascular lymph node. 5. Emphysema. 6. Atherosclerosis. 7. The rest of findings as above. ACT 112: Negative or not required by law. The above report was generated using voice recognition software. It may contain grammatical, syntax o r spelling errors. Electronically signed by: Madeline Weber DO 10/19/2020 5:26 PM
[2020-10-19] MEDS ORDERED: CEFEPIME 2,000 MG in SYRINGE 0 ML IV STA (17:57)
[2020-10-19] MEDS ORDERED: VANCOMYCIN CONSULT ACTIVE PRN (18:12)
[2020-10-19] MEDS ORDERED: CEFEPIME CONSULT ACTIVE PRN (18:12)
[2020-10-19] MEDS ORDERED: diphenhydrAMINE 50 MG/ML VIAL IV STA (18:30)
[2020-10-19] MEDS ORDERED: ACETAMINOPHEN 325 MG TAB PO STA ×2 (18:30→23:48)
[2020-10-19] MEDS ORDERED: ACETAMINOPHEN 325 MG TAB ONE ×2 (18:32→23:50)
[2020-10-19] MEDS ORDERED: diphenhydrAMINE 50 MG/ML VIAL ONE (18:33)
[2020-10-19] MEDS ORDERED: POTASSIUM CHLORIDE CRTAB 20 MEQ TABCR PO STA (19:05)
--- NOTE | 2020-10-19 19:05 | History & Physical Report ---
Date of Service October 19, 2020 Assessment & Plan (1) Hemoptysis: (2) Pancytopenia: (3) Small cell lung cancer: Plan: -admit to tele -patient presenting from home with reports of worsening shortness of breath and hemoptysis -hx of metastatic small cell lung cancer on chemo and radiation (last chemo on 10/07 w/ Vepesid, last radiation 10/18) - follows with Dr. Goldstein and Dr. Jessica Miller -WBC 0.7K, hgb 6.3, platelets 7k, ANC 120 -receiving 2 units PRBC, 1 platelet-pheresis -pulmonary consult, input appreciated (4) Sepsis: Plan: -CT chest suggesting a possible NAGI pneumonia -febrile and tachycardic; BP stable, lactate WNL -given immunocompromised and neutropenic state, will cover with Vanco and Cefepime -follow blood cultures (5) Type 2 diabetes mellitus: Plan: -hgb a1c 6.7 05/2020 -hold oral agents and utilize novolog per protocol while hospitalized (6) PSVT (paroxysmal supraventricular tachycardia): Plan: -continue metoprolol (7) Sleep apnea: Plan: -hold cpap due to hemoptysis (8) CKD (chronic kidney disease), stage III: Plan: -baseline creat runs in the high 1's -creat 1.9 today -monitor renal functions (9) DVT prophylaxis: Plan: -SCDs due to hemoptysis, pancytopenia History of Present Illness Chief Complaint: Coughing up blood Primary Care Provider: Anibal Donato MD 60-year-old male with PMH DM type II, COPD, metastatic small cell lung cancer on chemo and radiation, SHADY on CPAP, HTN, paroxysmal SVT, and other problems listed below who presents to the ED for evaluation of cough and hemoptysis. Patient with current metastatic small cell lung cancer on chemo and radiation. Last chemotherapy treatment on 10/07 with VePesid, last radiation treatment was yesterday. Patient reports over the past 1 week he has had worsening cough and exertional shortness of breath. Reports hemoptysis with lung tissue. Reports his chest is sore from coughing however no other chest pain. Denies fevers and chills. Reports a poor appetite. No abdominal pain, nausea, vomiting, diarrhea. Denies lightheadedness, dizziness, diaphoresis, syncopal events. Denies urinary symptoms.In the ED, patient was found pancytopenic with WBC 0.7K, Hgb 6.3, platelet count 7K. CT chest is suggestive of a possible left upper lobe pneumonia. Patient became febrile at 38.7 and is also tachycardic. BP is stable, lactate WNL. Patient was given IV cefepime and IVF. PRBC and platelet tranfusions were also ordered. Allergies Allergy/AdvReac Type Severity Reaction Status Date / Time fluticasone Allergy Unknown throat and Verified 10/19/20 16:28 tongue swelling salmeterol Allergy Unknown throat and Verified 10/19/20 16:28 tongue swelling morphine AdvReac Severe Migraine Verified 10/19/20 16:28 Home Medications Medication Instructions Recorded Confirmed Type albuterol sulfate 90 mcg/actuation 2 puff INHALATION Q6H PRN 07/10/18 10/19/20 History aerosol inhaler ipratropium 0.5 mg-albuterol 3 mg 3 ml INHALATION QID PRN 07/10/18 10/19/20 History (2.5 mg base)/3 mL nebulization soln tiotropium bromide 2.5 2 puffs INHALATION DAILY #4 ml 01/11/19 10/19/20 Rx mcg/actuation mist for inhalation (Spiriva Respimat) fluticasone furoate 200 1 inh INHALATION QAM #60 ea 05/14/19 10/19/20 Rx mcg-vilanterol 25 mcg/dose inhalation powder (Breo Ellipta) azithromycin 250 mg tablet 250 mg PO MOWEFR 30 Days #18 tab 01/27/20 10/19/20 Rx finasteride 5 mg tablet 5 mg PO DAILY #30 tab 05/13/20 10/19/20 Rx acetaminophen 500 mg tablet 500 mg PO Q6H PRN 08/20/20 10/19/20 History atorvastatin 40 mg tablet 40 mg PO QPM 08/20/20 10/19/20 History glipizide 5 mg tablet 5 mg PO BID 08/20/20 10/19/20 History metoprolol succinate 50 mg 50 mg PO DAILY 08/20/20 10/19/20 History tablet,extended release 24 hr potassium chloride 20 mEq 20 meq PO BID 08/20/20 10/19/20 History tablet,extended release torsemide 10 mg tablet 10 mg PO DAILY 08/20/20 10/19/20 History dicyclomine 10 mg capsule 10 mg PO TID PRN 09/14/20 10/19/20 History fexofenadine 180 mg tablet 180 mg PO DAILY PRN 09/14/20 10/19/20 History (Kallie Allergy) ondansetron HCl 8 mg tablet 8 mg PO Q8H PRN 09/14/20 10/19/20 History prochlorperazine maleate 10 mg 10 mg PO Q6H PRN 09/14/20 10/19/20 History tablet (Compazine) gabapentin 600 mg tablet 600 mg PO TID tab 10/13/20 10/19/20 History tamsulosin 0.4 mg capsule 0.4 mg PO DAILY 10/19/20 10/19/20 History Past Med/Surg History Medical History (Updated 10/19/20 @ 19:17 by ARIEL Jin) Arthritis Asthma BPH (benign prostatic hyperplasia) Cholelithiases Chronic back pain CKD (chronic kidney disease), stage III COPD (chronic obstructive pulmonary disease) Depression Dyslipidemia Erectile dysfunction Essential hypertension GERD (gastroesophageal reflux disease) controlled Hematuria History of nicotine dependence History of renal calculi Hyperlipidemia Hyperparathyroidism Kidney stone on left side Lumbar spinal stenosis Obesity Osteoarthritis of shoulders, bilateral PSVT (paroxysmal supraventricular tachycardia) Pulmonary emphysema Sciatica Sleep apnea CPAP HS + 1L O2 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 Tobacco use Type 2 diabetes mellitus NIDDM Umbilical hernia Vitamin D deficiency Surgical History Fusion of spine LUMBAR X 2 H/O parathyroidectomy History of arthroscopy LEFT KNEE History of bronchoscopy (07/23/20) Fine Needle Aspiration History of colonoscopy (11/19/12) History of colonoscopy (07/12/17) History of cystoscopy Left ureteroscopy, basket stone, cystoscopy, left stent exchange: 11/09/16: LMA#5 atraumatic History of neck surgery NERVE BLOCK FOR HEADACHES Repair of umbilical hernia (07/28/10) S/P laminectomy S/P parathyroidectomy S/P umbilical hernia repair, follow-up exam Status post cholecystectomy Status post lumbar spinal fusion Family History Father , Passed Age 73 Heart disease Hypertension Mother , Passed Age 57 Heart disease Hypertension Lung disease Sister Breast cancer Sister No problems noted. Uncle Throat cancer Aunt Bone cancer Sister , Passed Age 40 due to Lung Cancer Lung cancer Brother No problems noted. Son No problems noted. Son No problems noted. Son No problems noted. Social History Smoking Status: Current every day smoker Tobacco Type: Cigarettes packs per day: 2; Years Smoked: 45; Cigarettes Per Day: 40; Second Hand Exposure: Yes; Hx Alcohol Use: No Hx Substance Use: No Preferred Language: Ukrainian Communication Ability: Effective Visual Impairment: No Limitations Nursery Rn Required: No Beliefs That Will Affect Care: None marital status: Current Living Situation: Spouse current occupational status: disabled How many Children do You have: 3 Feels Safe at Home: Yes caffeine: Yes (12 cups per day) during the past year weight has: remained stable Dental Care, Regularly: No Physical Activity Frequency: Does not Exercise Assistive Devices: None Review of Systems Review of Systems: ROS per HPI, all other systems reviewed and negative Physical Exam Constitutional: WD/WN, vitals as above + obese Eyes: PERRL, conjunctivae normal, anicteric sclerae ENMT: external ear and nose normal, oropharynx normal Respiratory: normal respiratory effort; no respiratory distress coarse breath sounds throughout all lung mandujano Cardiovascular: Rate/Rhythm: regular rhythm and + tachycardic Vessels: normal peripheral pulses Extremities: + edema (+2 pitting edema BLE) Gastrointestinal (Abdomen): normal bowel sounds, soft, nontender, no hepatosplenomegaly Musculoskeletal: no cyanosis or clubbing, extremities motor strength 5/5 Skin: no rashes, warm and dry Neurologic: PERRL, EOMI, accommodation nl, no face palsy, no dysarthria Psychiatric: A+Ox3, euthymic affect Results & Data Results & Data ([facility]) Vital Signs (Past 12 Hours) Vital Signs Temp Pulse Pulse Resp BP Pulse Ox 10/19/20 18:00 38.7 C H 119 H 21 95 10/19/20 17:45 38.7 C H 121 H 26 H 126/73 2 L 10/19/20 17:44 38.2 C H 119 H 23 107/67 98 10/19/20 17:29 117 H 24 121/72 100 10/19/20 17:28 38 C H 117 H 26 H 121/72 92 10/19/20 16:59 118 H 25 H 131 H 10/19/20 16:57 108 H 12 10/19/20 16:30 116 H 27 H 99 10/19/20 16:20 116 H 25 H 98 10/19/20 16:10 118 H 27 H 91 10/19/20 16:00 119 H 33 H 96 10/19/20 15:50 119 H 21 96 10/19/20 15:42 2 L 10/19/20 15:40 119 H 22 94 10/19/20 15:30 122 H 17 10/19/20 15:22 119 H 20 92 10/19/20 14:58 36.7 C 119 H 22 146/74 H 91 Laboratory Results Short CBC 10/19/20 Range/Units 15:17 WBC 0.76 L* (4.8-10.8) K/uL Hgb 6.3 L* (14.0-18.0) g/dL Hct 18.6 L* (42-52) % Plt Count 7 L* (130-400) K/uL BMP 10/19/20 15:17 Sodium 134 L Potassium 3.2 L Chloride 97 L Carbon Dioxide 28 BUN 17 Creatinine 1.96 H Glucose 80 Calcium 9.5 Liver Function 10/19/20 Range/Units 15:17 Total Bilirubin 0.8 (0.2-1) mg/dl AST 21 (15-37) U/L ALT 47 (12-78) U/L Alkaline Phosphatase 90 (45-117) U/L Albumin 3.1 L (3.4-5.0) gm/dl Diagnostic Findings Chest CTA 10/19/20 15:30 CT ANGIOGRAM OF THE CHEST CLINICAL HISTORY: coughing up blood COMPARISON STUDY: October 02, 2020 CT chest for guide of radiation therapy TECHNIQUE: Following the IV administration of 119 mL of Optiray, CT angiogram of the thorax was performed from the thoracic inlet to the lung bases utilizing the pulmonary embolus protocol. Images are reviewed in the axial, sagittal, and coronal planes. IV contrast was administered without complication. MIP imaging was performed. A dose lowering technique was utilized adhering to the principles of ALARA. CT DOSE: 811.61 mGycm FINDINGS: No definite filling defect is seen within pulmonary artery or its central branches however opacification of the main pulmonary artery is insufficient for adequate evaluation for pulmonary embolus. Respiratory motion artifact further degrades evaluation. Main pulmonary artery is normal in caliber. No evidence of right heart strain. Heart is normal in size without pericardial effusion. Moderate coronary calcifications are seen. There is no axillary, supra clavicle or internal mammary lymphadenopathy seen. 2.1 cm heterogeneous lymph node is again seen within prevascular space. The rest of mottled mediastinal lymph nodes are not significantly enlarged. There was no evidence of thoracic aortic dilatation. Scattered calcifications of aortic wall are seen. Visualized portion of thyroid gland shows no evidence of focal lesions. Esophagus is patulous. Small fat containing hiatal hernia is seen. Tracheobronchial tree is patent. Study is acquired during expiratory phase. Evaluation of lung parenchyma is limited due to motion artifact. Moderate centrilobular upper lobe predominant emphysema is seen. Interval development of scattered peribronchial airspace opacities within left upper lobe and lingula which might represent atelectasis and infiltrates. No evidence of pleural effusion Limited evaluation of upper abdomen shows splenic calcifications and no evidence of acute or mollities. Osseous structures: Multilevel degenerative changes of the spine IMPRESSION: 1. No definite central pulmonary embolus is seen however opacification within main pulmonary artery is insufficient for adequate evaluation of pulmonary embolus. 2. Limited evaluation of peripheral branches of pulmonary artery and lung parenchyma due to motion artifact. 3. Interval development of atelectasis and infiltrative opacities/pneumonia within left upper lobe and lingula. 4. Stable enlarged prevascular lymph node. 5. Emphysema. 6. Atherosclerosis. 7. The rest of findings as above. ACT 112: Negative or not required by law. The above report was generated using voice recognition software. It may contain grammatical, syntax or spelling errors. Electronically signed by: Madeline Weber DO 10/19/2020 5:26 PM Code Status & VTE Plan Code Status Patient is a DNR as per my discussion with him. VTE Prophylaxis Plan VTE Prophylaxis will be ordered: Yes Supervising Physician Co-Signing Physician Notes 60-year-old male with PMH DM type II, COPD, metastatic small cell lung cancer on chemo and radiation, SHADY on CPAP, HTN, paroxysmal SVT, and other problems listed below who presents to the ED for evaluation of cough and hemoptysis. Per patien t, he has been coughing blood/clots since last 7 days associated with generalized chest pain, nausea and dizziness. Denies other review of symptoms. Has been getting radiation and chemotherapy for small cell lung cancer. He is a current smoker with 2 packs a day for [address] Goldstein. Uses CPAP and 3 L oxygen at night. Does not require oxygen during the day. We will manage him for acute hemodialysis likely secondary to worsening lung cancer. Rule out infection. Start antibiotic. Consult pulm. Consult oncology. Upon examination: GENERAL: Alert and oriented x3. NAD, on 2 L. HEENT: No pallor, no icterus. Pupils equal, round and reactive to light. Oral mucosa moist. NECK: No JVD, no neck masses. HEART: S1 and S2 heard. Regular rate and rhythm. No murmur, no gallop. RESPIRATORY SYSTEM: Normal AP diameter. No accessory muscle use. No wheezing, coarse crackles diffuse and bilateral ABDOMEN: Soft, bowel sounds present, nontender, no distention. CENTRAL NERVOUS SYSTEM: Alert and oriented x3. No facial droop. Speech is clear. Obeys simple commands. Moves extremities. EXTREMITIES: 2+ BLE edema, no erythema seen. I have seen and examined the patient and have discussed the case with the provider above. I agree with the assessment and plan as stated.
[2020-10-19] MEDS ORDERED: VANCOMYCIN HCL 2,250 MG in SODIUM CHLORIDE 0.9% 500 ML IV STA (20:21)
--- NOTE | 2020-10-19 23:04 | Pharmacy Report ---
Pharmacy Vanc AUC Short Note - Date of Service October 19, 2020 - Assessment & Plan Assessment 60 year old M receiving Vancomycin and Cefepime for treatment of pneumonia. * PMHx significant for T2DM, COPD, metastatic SCLC on chemo and radiation. Last chemo on 10/07 and last radiation 10/18. * CT Chest suggestive of possible NAGI pneumonia. Cultures pending. * Febrile at 38.7C. WBC 0.7k, ANC 0.12k. Started on cefepime and Vancomycin (both pharmacy consults) Plan Vancomycin * AUC/NORA is the preferred PK/PD target for vancomycin * AUC guided dosing is effective and associated with decreased risk of nephrotoxicity compared to traditional trough targets * Loading Dose: 2250 mg IV x 1 * Maintenance Dose: 1250 mg IV every 24 hours * This dose is expected to achieve a steady-state AUC and trough of 682 mg/L.hr and 20.2 mcg/mL, respectively. Both are above goal ranges but want to treat patient aggressively given immunocompromised steady. * Given extended dosing interval, will not order a trough for now in case renal function improves Cefepime * Target dose is 2000 mg IV every 8 hours * Will reduce to 2000 mg IV every 12 hours for CrCl 30-60 mL/min Pharmacy will continue to follow and will adjust dose/frequency as necessary. Thank you.
[2020-10-19] MEDS ORDERED: GLUCOSE 10 TABS/TUBE PO PRN (23:49)
[2020-10-19] MEDS ORDERED: DEXTROSE 50% 50 ML SYRINGE IV PRN (23:49)
[2020-10-19] MEDS ORDERED: ALBUT/IPRATROP 3MG/0.5MG NEB 3 ML VIAL INH PRN (23:49)
[2020-10-19] MEDS ORDERED: GLUCOSE 40% GEL 15 GM TUBE PO PRN (23:49)
[2020-10-19] MEDS ORDERED: ACETAMINOPHEN 325 MG TAB PO PRN (23:49)
[2020-10-19] MEDS ORDERED: GLUCAGON FOR INJ 1 MG VIAL SQ PRN (23:49)
[2020-10-19] MEDS ORDERED: CARBOHYDRATES FOR HYPOGLYCEMIA PO PRN (23:49)
[2020-10-20 00:12] VITALS: O2SAT 93
[2020-10-20] MEDS ORDERED: GABAPENTIN 600 MG TAB PO SCH (00:15)
[2020-10-20] MEDS ORDERED: INSULIN ASPART 100 UNITS/ML 3 ML PEN SC SCH (00:15)
[2020-10-20] MEDS ORDERED: ATORVASTATIN 40 MG TAB PO SCH (00:15)
[2020-10-20 01:06] VITALS: TEMP 99.3
[2020-10-20 04:31] VITALS: BP 132/78; PULSE 120
[2020-10-20 06:40] LABS: Hematocrit (blood only) 19.1 % (42-52); Hemoglobin 6.7 g/dL (14.0-18.0); Mean Corpuscular Hemoglobin 33.3 pg (25-34); Mean Corpuscular Hgb Conc 35.1 g/dL (32-36); Mean Platelet Volume 8.2 fL (7.4-10.4); Nucleated RBC # (auto) 0.03 K/uL (0-0); Nucleated RBC % (auto) 2.1 %; Platelet Count 10 K/uL (130-400); RDW Coefficient of Variation 15.6 % (11.5-14.5); RDW Standard Deviation 53.1 fL (36.4-46.3); Red Blood Count 2.01 M/uL (4.7-6.1); White Blood Count 1.27 K/uL (4.8-10.8)
[2020-10-20 06:55] LABS: Albumin Level 2.8 gm/dl (3.4-5.0); BUN Creatinine Ratio 11.8 (10-20); Calcium 8.5 mg/dl (8.5-10.1); Creatinine Clr Calc Pharmacy 51.9 ml/min; Dohle Bodies 1+; Est GFR (African American) 47.3 ml/min; Est GFR (Non-African American) 40.8 ml/min; Potassium 3.3 mmol/L (3.5-5.1)
[2020-10-20] MEDS ORDERED: SODIUM CHLORIDE 0.9% 250 ML IV PRN (06:55)
[2020-10-20 06:58] LABS: Albumin Globulin Ratio 0.6 (0.9-2); Bilirubin,Total 1.2 mg/dl (0.2-1); Globulin 4.7 gm/dl (2.5-4.0); Total Protein 7.5 gm/dl (6.4-8.2)
[2020-10-20 06:59] LABS: ANC (manual) 0.35 K/uL (1.4-6.5); Eosinophils # (manual) 0.03 K/uL (0-0.5); Eosinophils % (manual) 2.7 %; Lymphocytes % (manual) 39.2 %; Monocytes # (manual) 0.39 K/uL (0.11-0.59); Monocytes % (manual) 30.4 %; Neutrophils # (manual) 0.35 K/uL (1.4-6.5); Neutrophils % (manual) 27.7 %
[2020-10-20] MEDS ORDERED: CEFEPIME 2,000 MG in SYRINGE 0 ML IV SCH (07:00)
[2020-10-20] MEDS ORDERED: TAMSULOSIN HCL 0.4 MG CAP PO SCH (09:00)
[2020-10-20] MEDS ORDERED: METOPROLOL SUCC 50MG EXT REL TAB PO SCH (09:00)
[2020-10-20] MEDS ORDERED: FINASTERIDE 5 MG TAB PO SCH (09:00)
[2020-10-20] MEDS ORDERED: UMECLIDINIUM BROMIDE 62.5MCG/BLISTER 7 PUFFS/INHALER INH SCH (09:00)
[2020-10-20] MEDS ORDERED: FLUTICASONE/VILANTEROL 200/25MCG 14 PUFFS/INHALER INH SCH (09:00)
--- NOTE | 2020-10-20 09:14 | Communication Note ---
Date of Service: October 20, 2020 Was called to [facility] because he wanted to leave AMA. I went to evaluate the patient immediately in the ED. Patient was awake, alert and oriented x3. Patient stated that he does not like the hospital and wants to leave AMA. I inquired from the patient if he knows what is going on and if he understands his current clinical status. I explained to him his severe clinical status, his pancytopenia in the setting of hemoptysis and that patient needs to be seen by a lung doctor. Patient reported that he is aware of the risks but still he wants to leave AMA. I explained the risks of signing out AMA and without finishing the planned upon treatment which included or severe bodily harm. He stated he understands the risks. I also emphasized if there is anything that I can do to make his stay better but patient stated there is nothing that I can do and he wants to leave now.
--- NOTE | 2020-10-20 13:19 | Pulmonary Consultation ---
Date of Consultation October 20, 2020 History of Present Illness Attending Physician: María Elena Sunshine MD History of Present Illness Attending: Dr. Jorgensen 60-year-old male with PMH DM type II, COPD, metastatic small cell lung cancer on chemo and radiation, SHADY on CPAP, HTN, paroxysmal SVT, and other problems listed below who presents to the ED for evaluation of cough and hemoptysis. Per patient, he has been coughing blood/clots since last 7 days associated with generalized chest pain, nausea and dizziness. Denies other review of symptoms. Has been getting radiation and chemotherapy for small cell lung cancer. He is a current smoker with 2 packs a day for [address] Goldstein. Uses CPAP and 3 L oxygen at night. Does not require oxygen during the day. Went to see the patient approximately 930am this morning. He was reported to be a room D1B in the emergency department. Upon my arrival, patient had checked out AGAINST MEDICAL ADVICE. Notes reviewed by the hospitalist attempting to convince the patient to stay. I did not examine the patient or interview the patient. Please do not bill for this note. Allergies Allergy/AdvReac Type Severity Reaction Status Date / Time fluticasone Allergy Unknown throat and Verified 10/19/20 16:28 tongue swelling salmeterol Allergy Unknown throat and Verified 10/19/20 16:28 tongue swelling morphine AdvReac Severe Migraine Verified 10/19/20 16:28 Home Medications Medication Instructions Recorded Confirmed Type albuterol sulfate 90 mcg/actuation 2 puff INHALATION Q6H PRN 07/10/18 10/19/20 History aerosol inhaler ipratropium 0.5 mg-albuterol 3 mg 3 ml INHALATION QID PRN 07/10/18 10/19/20 History (2.5 mg base)/3 mL nebulization soln tiotropium bromide 2.5 2 puffs INHALATION DAILY #4 ml 01/11/19 10/19/20 Rx mcg/actuation mist for inhalation (Spiriva Respimat) fluticasone furoate 200 1 inh INHALATION QAM #60 ea 05/14/19 10/19/20 Rx mcg-vilanterol 25 mcg/dose inhalation powder (Breo Ellipta) azithromycin 250 mg tablet 250 mg PO MOWEFR 30 Days #18 tab 01/27/20 10/19/20 Rx finasteride 5 mg tablet 5 mg PO DAILY #30 tab 05/13/20 10/19/20 Rx acetaminophen 500 mg tablet 500 mg PO Q6H PRN 08/20/20 10/19/20 History atorvastatin 40 mg tablet 40 mg PO QPM 08/20/20 10/19/20 History glipizide 5 mg tablet 5 mg PO BID 08/20/20 10/19/20 History metoprolol succinate 50 mg 50 mg PO DAILY 08/20/20 10/19/20 History tablet,extended release 24 hr potassium chloride 20 mEq 20 meq PO BID 08/20/20 10/19/20 History tablet,extended release torsemide 10 mg tablet 10 mg PO DAILY 08/20/20 10/19/20 History dicyclomine 10 mg capsule 10 mg PO TID PRN 09/14/20 10/19/20 History fexofenadine 180 mg tablet 180 mg PO DAILY PRN 09/14/20 10/19/20 History (Kallie Allergy) ondansetron HCl 8 mg tablet 8 mg PO Q8H PRN 09/14/20 10/19/20 History prochlorperazine maleate 10 mg 10 mg PO Q6H PRN 09/14/20 10/19/20 History tablet (Compazine) gabapentin 600 mg tablet 600 mg PO TID tab 10/13/20 10/19/20 History tamsulosin 0.4 mg capsule 0.4 mg PO DAILY 10/19/20 10/19/20 History Patient History Medical History (Updated 10/19/20 @ 20:14 by German Sorto DO) Arthritis Asthma BPH (benign prostatic hyperplasia) Cholelithiases Chronic back pain CKD (chronic kidney disease), stage III COPD (chronic obstructive pulmonary disease) Depression Dyslipidemia Erectile dysfunction Essential hypertension GERD (gastroesophageal reflux disease) controlled Hematuria History of nicotine dependence History of renal calculi Hyperlipidemia Hyperparathyroidism Kidney stone on left side Lumbar spinal stenosis Obesity Osteoarthritis of shoulders, bilateral PSVT (paroxysmal supraventricular tachycardia) Pulmonary emphysema Sciatica Sleep apnea CPAP HS + 1L O2 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 Tobacco use Type 2 diabetes mellitus NIDDM Umbilical hernia Vitamin D deficiency Surgical History Fusion of spine LUMBAR X 2 H/O parathyroidectomy History of arthroscopy LEFT KNEE History of bronchoscopy (07/23/20) Fine Needle Aspiration History of colonoscopy (11/19/12) History of colonoscopy (07/12/17) History of cystoscopy Left ureteroscopy, basket stone, cystoscopy, left stent exchange: 11/09/16: LMA#5 atraumatic History of neck surgery NERVE BLOCK FOR HEADACHES Repair of umbilical hernia (07/28/10) S/P laminectomy S/P parathyroidectomy S/P umbilical hernia repair, follow-up exam Status post cholecystectomy Status post lumbar spinal fusion Family History Father , Passed Age 73 Heart disease Hypertension Mother , Passed Age 57 Heart disease Hypertension Lung disease Sister Breast cancer Sister No problems noted. Uncle Throat cancer Aunt Bone cancer Sister , Passed Age 40 due to Lung Cancer Lung cancer Brother No problems noted. Son No problems noted. Son No problems noted. Son No problems noted. Social History Smoking Status: Current every day smoker Tobacco Type: Cigarettes packs per day: 2; Years Smoked: 45; Cigarettes Per Day: 40; Second Hand Exposure: Yes; Do You Dip or Chew Tobacco: No; Hx Alcohol Use: No Hx Substance Use: No Preferred Language: [place] Communication Ability: Effective Visual Impairment: No Limitations Shoe Repair Supervisor Required: No Beliefs That Will Affect Care: None marital status: Current Living Situation: Spouse current occupational status: disabled How many Children do You have: 3 Other Information That Helps Us Care for You: No Feels Safe at Home: Yes Safety Concerns: Feels Safe At This Time caffeine: Yes (12 cups per day) during the past year weight has: remained stable Dental Care, Regularly: No Physical Activity Frequency: Does not Exercise Assistive Devices: Denture - Upper and Denture - Lower Assistive Devices Comment: teeth in mouth Results & Data Results & Data ([facility]) Vital Signs (Past 12 Hours) Vital Signs Pulse Resp BP Pulse Ox 10/20/20 04:00 120 H 20 132/78 93 PG Care Time/CCT Total # of Minutes Spent Total Time Spent with Patient: Total time spent is greater than 50% in coordination of care (as documented) at patient's floor/unit and/or counseling patient: Coding Level of Care Code None Comment Patient left AGAINST MEDICAL ADVICE prior to us seeing him
--- NOTE | 2020-10-20 16:24 | Discharge Summary ---
Date of Service October 20, 2020 Admission HPI Per Admitting Provider 60-year-old male with PMH DM type II, COPD, metastatic small cell lung cancer on chemo and radiation, SHADY on CPAP, HTN, paroxysmal SVT, and other problems listed below who presents to the ED for evaluation of cough and hemoptysis. Patient with current metastatic small cell lung cancer on chemo and radiation. Last chemotherapy treatment on 10/07 with VePesid, last radiation treatment was yesterday. Patient reports over the past 1 week he has had worsening cough and exertional shortness of breath. Reports hemoptysis with lung tissue. Reports his chest is sore from coughing however no other chest pain. Denies fevers and chills. Reports a poor appetite. No abdominal pain, nausea, vomiting, diarrhea. Denies lightheadedness, dizziness, diaphoresis, syncopal events. Denies urinary symptoms.In the ED, patient was found pancytopenic with WBC 0.7K, Hgb 6.3, platelet count 7K. CT chest is suggestive of a possible left upper lobe pneumonia. Patient became febrile at 38.7 and is also tachycardic. BP is stable, lactate WNL. Patient was given IV cefepime and IVF. PRBC and platelet tranfusions were also ordered. Admission Exam Per Admitting Provider Constitutional: WD/WN, vitals as above + obese Eyes: PERRL, conjunctivae normal, anicteric sclerae ENMT: external ear and nose normal, oropharynx normal Respiratory: normal respiratory effort; no respiratory distress coarse breath sounds throughout all lung mandujano Cardiovascular: Rate/Rhythm: regular rhythm and + tachycardic Vessels: normal peripheral pulses Extremities: + edema (+2 pitting edema BLE) Gastrointestinal (Abdomen): normal bowel sounds, soft, nontender, no hepatosplenomegaly Musculoskeletal: no cyanosis or clubbing, extremities motor strength 5/5 Skin: no rashes, warm and dry Neurologic: PERRL, EOMI, accommodation nl, no face palsy, no dysarthria Psychiatric: A+Ox3, euthymic affect Principal Diagnosis (1) Hemoptysis: (2) Pancytopenia: (3) Small cell lung cancer: Discharge Data Allergies Allergy/AdvReac Type Severity Reaction Status Date / Time fluticasone Allergy Unknown throat and Verified 10/19/20 16:28 tongue swelling salmeterol Allergy Unknown throat and Verified 10/19/20 16:28 tongue swelling morphine AdvReac Severe Migraine Verified 10/19/20 16:28 Consultations 10/19/20 17:06 ED Decision to Admit Stat 10/19/20 23:49 Consult Pulmonology Routine Ordered Studies 10/19/20 15:30 CT angio chest PE protocol Stat Hospital Course (1) Pancytopenia: (1) Hemoptysis: (2) Pancytopenia: (3) Small cell lung cancer: 60-year-old male with PMH DM type II, COPD, metastatic small cell lung cancer on chemo and radiation, SHADY on CPAP, HTN, paroxysmal SVT, and other problems listed below who presents to the ED for evaluation of cough and hemoptysis. Patient was given 2 units of PRBC and 1 unit of platelets. Pulmonary medicine was consulted. However on the morning of 10/20 I was called to evaluate the patient in the ED room. I went to evaluate the patient immediately in the ED. Patient was awake, alert and oriented x3. Patient stated that he does not like the hospital and wants to leave AMA. I inquired from the patient if he knows what is going on and if he understands his current clinical status. I explained to him his severe clinical status, his pancytopenia in the setting of hemoptysis and that patient needs to be seen by a lung doctor. Patient reported that he is aware of the risks but still he wants to leave AMA. I explained the risks of signing out AMA and without finishing the planned upon treatment which included or severe bodily harm. He stated he understands the risks. I also emphasized if there is anything that I can do to make his stay better but patient stated there is nothing that I can do and he wants to leave now. Patient signed AMA forms and left. Total Time Total Time Spent Total Time Spent (In Minutes): 35 Discharge Plan Discharge Items Patient Disposition: Against Medical Advice Reason For Visit: HEMOPTYSIS, PANCYTOPENIA Activity: Resume your previous activity Non-emergency contact: Primary Care Provider Follow-up/Referrals: Anibal Donato MD [Primary Care Provider] - Pending Studies at Discharge: No Stand-Alone Forms: My [employer], Smoking Cessation Medications and DC Order Prescriptions: No Action glipizide 5 mg tablet 5 mg PO BID RF: 0 metoprolol succinate 50 mg tablet extended release 24 hr 50 mg PO DAILY RF: 0 potassium chloride 20 mEq tablet extended release 20 meq PO BID RF: 0 torsemide 10 mg tablet 10 mg PO DAILY RF: 0 atorvastatin 40 mg tablet 40 mg PO QPM RF: 0 acetaminophen 500 mg tablet 500 mg PO Q6H PRN (Reason: Pain) RF: 0 fexofenadine [Kallie Allergy] 180 mg tablet 180 mg PO DAILY PRN (Reason: allergies) RF: 0 ondansetron HCl 8 mg tablet 8 mg PO Q8H PRN (Reason: Nausea) RF: 0 prochlorperazine maleate [Compazine] 10 mg tablet 10 mg PO Q6H PRN (Reason: Nausea) RF: 0 gabapentin 600 mg tablet 600 mg PO TID RF: 0 Spiriva Respimat 2.5 mcg/actuation mist 2 puffs inhalation DAILY Qty: 4 RF: 6 Breo Ellipta 200-25 mcg/dose blister with device 1 inh inhalation QAM Qty: 60 RF: 5 finasteride 5 mg tablet 5 mg PO DAILY Qty: 30 RF: 1 dicyclomine 10 mg capsule 10 mg PO TID PRN (Reason: gastric upset) RF: 0 azithromycin 250 mg tablet 250 mg PO MOWEFR 30 Days Qty: 18 RF: 6 ipratropium-albuterol 0.5 mg-3 mg(2.5 mg base)/3 mL Solution For Nebulization 3 ml INHALATION QID PRN (Reason: Shortness Of Breath Or Wheezing) RF: 0 albuterol sulfate 90 mcg/actuation Hfa Aerosol Inhaler 2 puff INHALATION Q6H PRN (Reason: Shortness Of Breath Or Wheezing) RF: 0 tamsulosin 0.4 mg capsule 0.4 mg PO DAILY RF: 0 Discharge Orders: Left Against Medical Advice (Routine); Ordered 10/20/20 Ordered By: María Elena Sunshine Admission Data Admit Date/Time: 10/19/20 17:33 Attending Provider: María Elena Sunshine Admit Provider: Edward Carrington Primary Care Provider: Anibal Donato Other Providers: Edward Carrington ; Juvenal Jorgensen
[2020-10-20] MEDS ORDERED: VANCOMYCIN HCL 1,250 MG in SODIUM CHLORIDE 0.9% 250 ML IV SCH (22:00)
[2020-10-21] MEDS ORDERED: SODIUM CHLORIDE 0.9% 1000ML 1,000 ML IV SCH (00:15)
== END 2020-10-20 09:15 | disposition left against medical advice (07) | DRG 181 ==
LOC: ED 14:48 → EDINP 17:33 → SUATTDRO 17:33 → EDINP 23:45

== ENCOUNTER 2021-11-29 07:58 | Inpatient (IN) ==
[2021-11-29] MEDS ORDERED: SODIUM CHLORIDE 0.9% 1000ML 500 ML IV ONE (08:18)
[2021-11-29] MEDS ORDERED: CEFEPIME 2,000 MG/20 ML VIAL IV STA (08:18)
--- NOTE | 2021-11-29 08:25 | Emergency Department Note ---
History of Present Illness General Chief complaint: Illness Stated complaint: CANCER, FEVER, HARD TO WALK, SHAKING Time Seen by Provider: 11/29/21 08:06 Source: patient and family ( who is at the bedside) Mode of arrival: ambulatory Limitations: no limitations History of Present Illness Maximum Pain Intensity: 8 This patient is a 61-year-old male who has a history of metastatic small cell lung cancer, comes in after feeling sick for a week or so. He received a new chemo agent 2 weeks ago about 4 days later he says he is gone downhill since he is diffusely weak he is felt like he had fevers up to 103 the last 3 days. Denies any headache. No fall or trauma feels generally weak. Has been coughing more than usual its been nonproductive he feels shaky. No rash no vomiting has some abdominal rib pain from coughing. He may have had some slight diarrhea without blood. His grandchild did have RSV about a week ago. They have tested negative for COVID at home. He did receive radiation about 2 weeks ago for brain metastases as well Home Medications Medication Instructions Recorded Confirmed Type albuterol sulfate 90 mcg/actuation 2 puff inhalation Q6H PRN 07/10/18 11/29/21 History aerosol inhaler Shortness Of Breath Or Wheezing tiotropium bromide 2.5 2 puffs inhalation DAILY #4 mL 01/11/19 11/29/21 Rx mcg/actuation mist for inhalation (Spiriva Respimat) fluticasone furoate 200 1 inh inhalation QAM #60 ea 05/14/19 11/29/21 Rx mcg-vilanterol 25 mcg/dose inhalation powder (Breo Ellipta) finasteride 5 mg tablet 5 mg PO DAILY #30 tabs 05/13/20 11/29/21 Rx acetaminophen 500 mg tablet 500 mg PO Q6H PRN Pain 08/20/20 11/29/21 History atorvastatin 40 mg tablet 40 mg PO QPM 08/20/20 11/29/21 History glipizide 5 mg tablet 5 mg PO BID 08/20/20 11/29/21 History metoprolol succinate 50 mg 50 mg PO DAILY 08/20/20 11/29/21 History tablet,extended release 24 hr ondansetron HCl 8 mg tablet 8 mg PO Q8H PRN Nausea 09/14/20 11/29/21 History prochlorperazine maleate 10 mg 10 mg PO Q6H PRN Nausea 09/14/20 11/29/21 History tablet (Compazine) gabapentin 600 mg tablet 600 mg PO TID 10/13/20 11/29/21 History potassium chloride 20 mEq 20 meq PO TID 11/03/20 11/29/21 History tablet,extended release azithromycin 250 mg tablet 250 mg PO MOWEFR 05/07/21 11/29/21 History meclizine 25 mg tablet 25 mg PO TID 11/29/21 11/29/21 History torsemide 5 mg tablet 5 mg PO DAILY 11/29/21 11/29/21 History Allergies Allergy/AdvReac Type Severity Reaction Status Date / Time fluticasone Allergy Unknown throat and Verified 09/16/21 09:09 tongue swelling salmeterol Allergy Unknown throat and Verified 09/16/21 09:09 tongue swelling morphine AdvReac Severe Migraine Verified 09/16/21 09:09 Past Med/Surg History Medical History Arthritis Asthma BPH (benign prostatic hyperplasia) Cholelithiases Chronic back pain CKD (chronic kidney disease), stage III COPD (chronic obstructive pulmonary disease) Depression Dyslipidemia Erectile dysfunction Essential hypertension GERD (gastroesophageal reflux disease) controlled Hematuria History of nicotine dependence History of renal calculi Hyperlipidemia Hyperparathyroidism Kidney stone on left side Lumbar spinal stenosis Obesity Osteoarthritis of shoulders, bilateral PSVT (paroxysmal supraventricular tachycardia) Pulmonary emphysema Sciatica Sleep apnea CPAP HS + 1L O2 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 Tobacco use Type 2 diabetes mellitus NIDDM Umbilical hernia Vitamin D deficiency Surgical History Fusion of spine LUMBAR X 2 H/O parathyroidectomy History of arthroscopy LEFT KNEE History of bronchoscopy (07/23/20) Fine Needle Aspiration History of colonoscopy (11/19/12) History of colonoscopy (07/12/17) History of cystoscopy Left ureteroscopy, basket stone, cystoscopy, left stent exchange: 11/09/16: LMA#5 atraumatic History of neck surgery NERVE BLOCK FOR HEADACHES Repair of umbilical hernia (07/28/10) S/P laminectomy S/P parathyroidectomy S/P umbilical hernia repair, follow-up exam Status post cholecystectomy Status post lumbar spinal fusion Family History Father , Passed Age 73 Heart disease Hypertension Mother , Passed Age 57 Heart disease Hypertension Lung disease Sister Breast cancer Sister No problems noted. Uncle Throat cancer Aunt Bone cancer Sister , Passed Age 40 due to Lung Cancer Lung cancer Brother No problems noted. Son No problems noted. Son No problems noted. Son No problems noted. Social History Smoking Status: Current every day smoker Tobacco Type: Cigarettes packs per day: 2; Years Smoked: 45; Cigarettes Per Day: 40; Second Hand Exposure: No; Do You Dip or Chew Tobacco: No; Tobacco Cessation Education Requested by Patient: No Hx Alcohol Use: No Hx Substance Use: No Preferred Language: Urdu Communication Ability: Effective Visual Impairment: No Limitations Hearing Ability: Normal Rn Nicu Required: No Beliefs That Will Affect Care: None marital status: Current Living Situation: Spouse current occupational status: disabled How many Children do You have: 3 Other Information That Helps Us Care for You: No Feels Safe at Home: Yes Safety Concerns: Feels Safe At This Time caffeine: Yes (12 cups per day) during the past year weight has: remained stable Dental Care, Regularly: No Physical Activity Frequency: Does not Exercise Assistive Devices: Cane, CPAP, Denture - Upper, Denture - Lower and Oxygen - at Night Review of Systems A total of 10 systems reviewed and were otherwise negative Physical Exam Vital Signs Vital Signs - 24 hr 11/29/21 08:00 11/29/21 08:56 11/29/21 09:00 Temperature 37.4 C Temperature Source Temporal Artery Scan Pulse Rate 129 H 120 H 119 H Respiratory Rate 20 33 H Blood Pressure 116/67 Blood Pressure Mean 83 Pulse Oximetry 98 86 L Oxygen Delivery Method Room Air Room Air Oxygen Flow Rate Sepsis Recent Fever Within 48 Hours No Sepsis New/Unexplained Change in Mental Status No Sepsis Action Taken by Nursing No Action Required 11/29/21 09:10 11/29/21 09:05 11/29/21 09:30 Temperature Temperature Source Pulse Rate 114 H 113 H Respiratory Rate 27 H 24 Blood Pressure Blood Pressure Mean Pulse Oximetry 94 92 95 Oxygen Delivery Method Nasal Cannula Nasal Cannula Nasal Cannula Oxygen Flow Rate 4 4 4 Sepsis Recent Fever Within 48 Hours Sepsis New/Unexplained Change in Mental Status Sepsis Action Taken by Nursing 11/29/21 10:00 11/29/21 10:30 Temperature Temperature Source Pulse Rate 112 H 117 H Respiratory Rate 20 19 Blood Pressure Blood Pressure Mean Pulse Oximetry 95 93 Oxygen Delivery Method Nasal Cannula Nasal Cannula Oxygen Flow Rate 4 4 Sepsis Recent Fever Within 48 Hours Sepsis New/Unexplained Change in Mental Status Sepsis Action Taken by Nursing General: Well developed well nourished chronically ill-appearing middle-age male who appears in no acute distress, breathing comfortably on room air. Normal speech HEENT: Normal cephalic atraumatic. Pupils are equal round and reactive to light. Extraocular movements are intact. Oropharynx is pink with moist mucous membranes. No swelling of the mouth lips or tongue. Neck: Supple with a midline trachea. No meningeal signs or stiffness, no JVD or bruits. No Stridor. Chest: Clear to auscultation bilaterally with exception of some scattered rhonchi. No increased work of breathing. There is in a port in the right chest. The area around this is not red or warm. Heart: Regular rate and rhythm without murmurs or gallops. Abdomen: Soft nontender, nondistended without rebound guarding or rigidity. Extremities: No cyanosis clubbing or edema. No calf tenderness or assymetry Spine/Back. Non tender to palpation. No CVA tenderness Skin: Good turgor without rashes. Neurologic exam: Cranial nerves two through 12 are intact. Motor and sensation are intact and symmetrical throughout. Course Administered Medications Azithromycin (Azithromycin 250 Mg Tab) 250 mg PO MoWeFr@0900 [facility] Stop: 12/29/21 12:29 Last Admin: 11/29/21 13:05 Dose: 250 mg Documented By: ASHLY Finasteride (Finasteride 5 Mg Tab) 5 mg PO DAILY [facility] Stop: 12/29/21 12:14 Last Admin: 11/29/21 13:05 Dose: 5 mg Documented By: ASHLY Fluticasone/Vilanterol (Fluticasone/Vilanterol 200/25mcg 14 Puffs/Inhaler) 1 puffs INH QAM [facility] Stop: 12/29/21 12:29 Last Admin: 11/29/21 13:06 Dose: 1 puffs Documented By: ASHLY Gabapentin (Gabapentin 600 Mg Tab) 600 mg PO TID [facility] Stop: 12/29/21 13:59 Last Admin: 11/29/21 13:07 Dose: 600 mg Documented By: ASHLY Metoprolol Succinate (Metoprolol Succ 50mg Ext Rel Tab) 50 mg PO DAILY [facility] Stop: 12/29/21 12:29 Last Admin: 11/29/21 13:06 Dose: 50 mg Documented By: ASHLY Nicotine (Nicotine 21 Mg/24 Hr Tdsy) 21 mg TD QAM [facility] Stop: 12/29/21 13:29 Last Admin: 11/29/21 13:40 Dose: 21 mg Documented By: ASHLY Potassium Chloride (Potassium Chloride Crtab 20 Meq Tabcr) 20 meq PO TID [facility] Stop: 12/29/21 13:59 Last Admin: 11/29/21 13:07 Dose: 20 meq Documented By: ASHLY Umeclidinium Dierks (Umeclidinium Dierks 62.5mcg/Blister 7 Puffs/Inhaler) 1 puffs INH QDR [facility] Stop: 12/29/21 12:44 Last Admin: 11/29/21 13:08 Dose: Not Given Documented By: ASHLY Discontinued Medications Cefepime HCl (Maxipime) 2,000 mg in 20 mls @ 5 mls/min IV NOW STA; Protocol Stop: 11/29/21 08:21 Last Admin: 11/29/21 09:07 Dose: 5 mls/min Documented By: ASHLY Sodium Chloride (Nss 1000ml) 500 mls @ 999 mls/hr IV .Q31M ONE Stop: 11/29/21 08:48 Last Infusion: 11/29/21 09:40 Dose: 0 mls/hr Documented By: Admin: 11/29/21 09:07 Dose: 999 mls/hr Documented By: ASHLY Medical Decision Making Differential Diagnosis Sepsis, pneumonia, neutropenia, anemia, complication related to chemotherapy or cancer, metastases, electrolyte or metabolic abnormality, dehydration Medical Records Attestation: I reviewed the patient's medical records. Home Medications Current Medication List: was personally reviewed by me Laboratory Data Attestation: I reviewed the patient's lab results. Result diagrams: 11/29/21 08:36 11/29/21 08:36 Lab Results 11/29/21 11/29/21 11/29/21 Range/Units 08:36 08:36 08:36 WBC 0.50 L* (4.8-10.8) K/ul RBC 2.65 L (4.63-6.08) M/uL Hgb 9.9 L (14.0-18.0) g/dl Hct 29.1 L (40.1-51.0) % MCV 109.8 H (80.0-100.0) fL MCH 37.4 H (25.0-34.0) pg MCHC 34.0 (32.0-36.0) g/dL RDW Std Deviation 70.4 H (36.4-46.3) fL RDW Coeff of Gregorio 17.3 H (11.5-14.5) % Plt Count 10 L* (130-400) K/uL MPV 13.5 H (9.4-12.4) fL Immature Gran % (Auto) 0.0 % Neut % (Auto) 20.0 % Lymph % (Auto) 44.0 % [place] % (Auto) 34.0 % Eos % (Auto) 2.0 % Baso % (Auto) 0.0 % Neut # (Auto) 0.10 L* (1.4-6.5) K/uL Lymph # (Auto) 0.22 L (1.2-3.4) K/uL [place] # (Auto) 0.17 L (0.24-0.82) K/uL Eos # (Auto) 0.01 (0-0.50) K/uL Baso # (Auto) 0.00 (0-0.2) K/uL Immature Gran # (Auto) 0.00 (0.00-0.02) K/uL Macrocytosis Present Sodium 136 (136-145) mmol/L Potassium 4.0 (3.5-5.1) mmol/L Chloride 107 (98-107) mmol/L Carbon Dioxide 20 L (21-32) mmol/L Anion Gap 9 (3-11) BUN 29 H (6-23) mg/dl Creatinine 2.06 H (0.6-1.4) mg/dl Est Cr Clr Drug Dosing Not Reportable Est GFR ( Amer) 39.1 ml/min Est GFR (Non-Af Amer) 33.8 ml/min BUN/Creatinine Ratio 14.1 (10-20) Glucose 103 H (70-99(Fasting)) mg/dl Lactate 1.1 (0.4-2.0) mmol/L Calcium 9.3 (8.5-10.1) mg/dl Magnesium 2.1 (1.7-2.4) mg/dl Total Bilirubin 0.9 (0.2-1.0) mg/dl Direct Bilirubin 0.4 H (0-0.2) mg/dl AST 25 (13-39) U/L ALT 61 H (7-52) U/L Alkaline Phosphatase 76 (34-104) U/L Troponin I High Sens 9.5 (0-20) pg/ml Total Protein 7.4 (6.0-8.3) gm/dl Albumin 3.5 (3.4-5.0) gm/dl Procalcitonin (0-0.5) ng/ml Blood Type Antibody Screen 11/29/21 11/29/21 Range/Units 08:36 08:45 WBC (4.8-10.8) K/ul RBC (4.63-6.08) M/uL Hgb (14.0-18.0) g/dl Hct (40.1-51.0) % MCV (80.0-100.0) fL MCH (25.0-34.0) pg MCHC (32.0-36.0) g/dL RDW Std Deviation (36.4-46.3) fL RDW Coeff of Gregorio (11.5-14.5) % Plt Count (130-400) K/uL MPV (9.4-12.4) fL Immature Gran % (Auto) % Neut % (Auto) % Lymph % (Auto) % [place] % (Auto) % Eos % (Auto) % Baso % (Auto) % Neut # (Auto) (1.4-6.5) K/uL Lymph # (Auto) (1.2-3.4) K/uL [place] # (Auto) (0.24-0.82) K/uL Eos # (Auto) (0-0.50) K/uL Baso # (Auto) (0-0.2) K/uL Immature Gran # (Auto) (0.00-0.02) K/uL Macrocytosis Sodium (136-145) mmol/L Potassium (3.5-5.1) mmol/L Chloride (98-107) mmol/L Carbon Dioxide (21-32) mmol/L Anion Gap (3-11) BUN (6-23) mg/dl Creatinine (0.6-1.4) mg/dl Est Cr Clr Drug Dosing Est GFR ( Amer) ml/min Est GFR (Non-Af Amer) ml/min BUN/Creatinine Ratio (10-20) Glucose (70-99(Fasting)) mg/dl Lactate (0.4-2.0) mmol/L Calcium (8.5-10.1) mg/dl Magnesium (1.7-2.4) mg/dl Total Bilirubin (0.2-1.0) mg/dl Direct Bilirubin (0-0.2) mg/dl AST (13-39) U/L ALT (7-52) U/L Alkaline Phosphatase (34-104) U/L Troponin I High Sens (0-20) pg/ml Total Protein (6.0-8.3) gm/dl Albumin (3.4-5.0) gm/dl Procalcitonin 4.32 H (0-0.5) ng/ml Blood Type O Positive Antibody Screen NEGATIVE Imaging Data Attestation: I personally reviewed and interpreted this imaging study as follows: My Impression: Chest x-rayno acute infiltrate, failure, pneumothorax seen. There is some atelectasis Radiologist's Impression: Chest X-Ray 11/29/21 08:16 XR chest 1V portable CLINICAL HISTORY: Sepsis TECHNIQUE: Single frontal radiograph of the chest was obtained. Comparison: Comparison is made to chest radiograph 09/10/[address] chest 10/19/2020 FINDINGS: A port catheter is seen. Calcified aortic knob is seen. Focal linear density is in the left midlung. No evidence of pleural effusion or pneumothorax. IMPRESSION: Linear density in the left midlung is favored to represent atelectasis. No pneumonia is seen. ACT 112: Negative or not required by law. Electronically signed by: Bogdan Douglass M.D. 11/29/2021 9:45 AM ECG Data Attestation: I personally reviewed and interpreted this ECG as follows: Indication: + weakness Rate (beats per minute): 115 ECG Intervals/blocks: + Normal QRS, + Normal QT and + Normal CO ECG [place]: + Normal ECG ST segments: + Normal ST segments ECG Findings: no PACs or no PVCs Comparison ECG Date: from (10/19/20) Change: no significant change MDM Narrative This patient comes in as described above. he was placed in room B3. He has a complex medical history including metastatic small cell lung cancer with recent chemo and radiation also a couple weeks ago. He has not felt well since the recent chemo is not sure which agent it was. He does receive it at [facility]. I did access his a port. A full sepsis type work-up was obtained and he was hydrated with an IV fluid bolus given the concern for potential sepsis with the patient told me he has had low counts recently as well as a temperature 103, I did give him cefepime 2 g IV while the work-up was being don e. His blood work came back consistent with neutropenia he also has thrombocytopenia is no evidence of any active bleeding anywhere. His chest x- ray shows no definite pneumonia. COVID testing RSV and flu were negative. His renal function is elevated likely consistent with dehydration. Given the fact that he had a high fever of 103 at home and is neutropenic I do think he needs to be admitted for IV antibiotics and further monitoring and treatment as well as rehydration. I have consulted Dr. Salomon to see him in the ER for these measures. Continuous cardiac monitoring: Orders placed in EMR for continuous cardiac monitoring. Upon my interpretation patient noted to be sinus tachycardia with a rate of 103 Impression & Plan Neutropenic fever, Pancytopenia, Sepsis, Lab test negative for COVID-19 virus, Acute dehydration, Lung cancer metastatic to brain Discharge Plan Visit Data Chief Complaint: Illness Stated Complaint: CANCER, FEVER, HARD TO WALK, SHAKING ED Provider: Bennett Enciso Discharge Problem: Neutropenic fever, Pancytopenia, Sepsis, Lab test negative for COVID-19 virus, Acute dehydration, Lung cancer metastatic to brain Patient Disposition: Admitted As Inpatient Discharge Instructions Interventions: ED Discharge Assessment Last Done: 11/29/21 13:15
[2021-11-29 09:15] LABS: Hematocrit (blood only) 29.1 % (40.1-51.0); Hemoglobin 9.9 g/dl (14.0-18.0); Mean Corpuscular Hemoglobin 37.4 pg (25.0-34.0); Mean Corpuscular Volume 109.8 fL (80.0-100.0); Mean Platelet Volume 13.5 fL (9.4-12.4); Platelet Count 10 K/uL (130-400); RDW Coefficient of Variation 17.3 % (11.5-14.5); RDW Standard Deviation 70.4 fL (36.4-46.3); Red Blood Count 2.65 M/uL (4.63-6.08)
[2021-11-29 09:31] LABS: Macrocytosis Present
[2021-11-29 09:43] LABS: Troponin I High Sensitivity 9.5 pg/ml (0-20)
[2021-11-29 09:44] LABS: Eosinophils # (auto) 0.01 K/uL (0-0.50); Lymphocytes # (auto) 0.22 K/uL (1.2-3.4); Monocytes # (auto) 0.17 K/uL (0.24-0.82)
--- NOTE | 2021-11-29 09:45 | XRay Report ---
XR chest 1V portable CLINICAL HISTORY: Sepsis TECHNIQUE: Single frontal radiograph of the chest was obtained. Comparison: Comparison is made to chest radiograph 09/10/[address] chest 10/19/2020 FINDINGS: A port catheter is seen. Calcified aortic knob is seen. Focal linear density is in the left midlung. No evidence of pleural effusion or pneumothorax. IMPRESSION: Linear density in the left midlung is favored to represent atelectasis. No pneumonia is seen. ACT 112: Negative or not required by law. Electronically signed by: Bogdan Douglass M.D. 11/29/2021 9:45 AM
[2021-11-29 09:46] LABS: Alanine Aminotransferase 61 U/L (7-52); Albumin Level 3.5 gm/dl (3.4-5.0); Alkaline Phosphatase 76 U/L (34-104); Anion Gap 9 (3-11); Aspartate Aminotransferase 25 U/L (13-39); BUN Creatinine Ratio 14.1 (10-20); Bilirubin Direct 0.4 mg/dl (0-0.2); Bilirubin,Total 0.9 mg/dl (0.2-1.0); Blood Urea Nitrogen 29 mg/dl (6-23); Calcium 9.3 mg/dl (8.5-10.1); Carbon Dioxide 20 mmol/L (21-32); Chloride 107 mmol/L (98-107); Est GFR (African American) 39.1 ml/min; Est GFR (Non-African American) 33.8 ml/min; Glucose 103 mg/dl (70-99(Fasting)); Magnesium 2.1 mg/dl (1.7-2.4); Sodium 136 mmol/L (136-145); Total Protein 7.4 gm/dl (6.0-8.3)
[2021-11-29 10:01] LABS: Influenza A virus by PCR Negative (Neg); Influenza B virus by PCR Negative (Neg); RSV by PCR Negative (Neg); SARS CoV2 RNA(COVID-19) InHosp NEGATIVE (Negative)
--- NOTE | 2021-11-29 10:27 | History & Physical Report ---
Date of Service November 29, 2021 Assessment & Plan (1) Sepsis: (2) Hypoxia: Plan: Possibly 2/2 pneumonia. He wears oxygen at night with his CPAP but not typically during the day. Suspect this is secondary to pneumonia. (3) Pneumonia: Plan: Suspect pneumonia with possible developing sepsis given his tachycardia, worsened hypoxia, respiratory symptoms, and neutropenia with fever. There is a linear density in the left mid-lung that is consistent with atelectasis and no pneumonia is seen per radiology. However, with clinical picture and coarse rhonchi throughout, I suspect that once he is rehydrated again, this may present itself. Will repeat CXR in am. (4) Neutropenic fever: Plan: Chemotherapy induced neutropenia. Empiric cefepime started, suspect lung source with coughing and rhonchi. UA still needs to be collected and blood cultures, sputum culture pending. Trend CBC with diff daily. (5) Antineoplastic chemotherapy induced pancytopenia: Plan: Recent chemo was two weeks ago. Platelet transfusion today with repeat CBC in am. Patient was notified of the risks of bleeding/bruising. (6) Brain metastasis: Plan: Known h/o brain mets s/p repeat brain XRT as above. Today there are no neurologic deficits and he denies any headache or dizziness. If he develops neurologic deficit, would consider stat CT head, IV decadron, and potentially fly him to tertiary care center if any intracranial hemorrhage was noted. (7) Type 2 diabetes mellitus: Plan: Hold home glipizide and start insulin basal bolus while in the hospital. Obviously, this means he will get his finger pricked multiple times today. If bleeding or significant bruising becomes an issue, insulin and checks may be adjusted. (8) Small cell lung cancer: Plan: per oncology. History as above. (9) Acute renal failure superimposed on stage 3 chronic kidney disease: Plan: Give additional IVF now-cautious with blood products ordered to infuse. Repeat BMP. Suspect poor oral intake contributing. Renally dosed cefepime. Please adjust dose as renal function improves. (10) DVT prophylaxis: Plan: SCDs/ambulation chemoprophylaxis is contraindicated 2/2 severe thrombocytopenia. Full code as confirmed with he and his on admission. Dianne Salomon DO [facility] Hospitalist History of Present Illness Chief Complaint: neutropenic fever Primary Care Provider: Anibal Donato MD 61 yo M with metastatic lung cancer to his brain presents with weakness and fever. Last chemo was on 11/19, and last whole brain radiation was on 11/12. He is not taking any decadron, stopping with last XRT treatment. No chest pain, +SOB, no headache or dizziness currently. Fever at home including to 102F this am. He is generally weak, which is what brought him to the ER. +lower left abd pain started around the time he injured his lower right ribs when he rolled over a stump root on the ground. The abdominal pain came after that and is constant, sharp, doesn't radiate. The coughing is making this pain worse. He expresses irritation at being sick and in the hospital so much. It was explained to him that with his brain mets and low platelet count (platelet function was explained) he runs a risk of spontaneously bleeding into his brain. If this occurs, it was explained to both he and his that we have no ability to treat him here at this facility as there is no neurosurgeon on staff. I offered to transfer him to a tertiary care facility, and he declined, knowing that he would need this emergently if he bled into his brain. Both he and his verbalized understanding regarding what that meant. Otherwise denies any chest pain. [place] some right ear fullness (bilateral TM pearly and clear of fluid today). Denies bleeding, bruising or skin findings except for a couple of dog scratches on his left leg which are closed. Reports low appetite and low PO intake for the past few days without nausea. This is a typical post chemotherapy course for him. 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 CT scan June 2020 revealed a left upper lobe lobulated mass with adenopathy. PET scan on July 2020 revealed metabolically active nodules. 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 He is smoked 2 packs/day for about 50 years. He was started on 3 cycles carboplatin etoposide combination with last chemotherapy in October 2020. He completed prophylactic cranial radiation therapy in January 2021. He developed recurrent disease in 2021 and was rechallenged with the same chemotherapy including combination carboplatin etoposide and atezolizumab. He completed 4 cycles of chemotherapy with last dose on 08/25/2021. As a result of dizziness he had an MRI revealing for new enhancing subcentimeter lesions in the brain and is now receiving radiation therapy. PET scan was also done revealing overall stable disease with increasing intensity of uptake in the left adrenal gland consistent with metastatic disease. He had a disease progression while he was receiving atezolizumab with new brain mets. Second line lurbinectedin will be started after completion of radiation therapy. He sees Dr. James Goldstein for oncologic care. Allergies Allergy/AdvReac Type Severity Reaction Status Date / Time fluticasone Allergy Unknown throat and Verified 09/16/21 09:09 tongue swelling salmeterol Allergy Unknown throat and Verified 09/16/21 09:09 tongue swelling morphine AdvReac Severe Migraine Verified 09/16/21 09:09 Home Medications Medication Instructions Recorded Confirmed Type albuterol sulfate 90 mcg/actuation 2 puff inhalation Q6H PRN 07/10/18 11/29/21 History aerosol inhaler Shortness Of Breath Or Wheezing tiotropium bromide 2.5 2 puffs inhalation DAILY #4 mL 01/11/19 11/29/21 Rx mcg/actuation mist for inhalation (Spiriva Respimat) fluticasone furoate 200 1 inh inhalation QAM #60 ea 05/14/19 11/29/21 Rx mcg-vilanterol 25 mcg/dose inhalation powder (Breo Ellipta) finasteride 5 mg tablet 5 mg PO DAILY #30 tabs 05/13/20 11/29/21 Rx acetaminophen 500 mg tablet 500 mg PO Q6H PRN Pain 08/20/20 11/29/21 History atorvastatin 40 mg tablet 40 mg PO QPM 08/20/20 11/29/21 History glipizide 5 mg tablet 5 mg PO BID 08/20/20 11/29/21 History metoprolol succinate 50 mg 50 mg PO DAILY 08/20/20 11/29/21 History tablet,extended release 24 hr ondansetron HCl 8 mg tablet 8 mg PO Q8H PRN Nausea 09/14/20 11/29/21 History prochlorperazine maleate 10 mg 10 mg PO Q6H PRN Nausea 09/14/20 11/29/21 History tablet (Compazine) gabapentin 600 mg tablet 600 mg PO TID 10/13/20 11/29/21 History potassium chloride 20 mEq 20 meq PO TID 11/03/20 11/29/21 History tablet,extended release azithromycin 250 mg tablet 250 mg PO MOWEFR 05/07/21 11/29/21 History meclizine 25 mg tablet 25 mg PO TID 11/29/21 11/29/21 History torsemide 5 mg tablet 5 mg PO DAILY 11/29/21 11/29/21 History Past Med/Surg History Medical History Arthritis Asthma BPH (benign prostatic hyperplasia) Cholelithiases Chronic back pain CKD (chronic kidney disease), stage III COPD (chronic obstructive pulmonary disease) Depression Dyslipidemia Erectile dysfunction Essential hypertension GERD (gastroesophageal reflux disease) controlled Hematuria History of nicotine dependence History of renal calculi Hyperlipidemia Hyperparathyroidism Kidney stone on left side Lumbar spinal stenosis Obesity Osteoarthritis of shoulders, bilateral PSVT (paroxysmal supraventricular tachycardia) Pulmonary emphysema Sciatica Sleep apnea CPAP HS + 1L O2 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 Tobacco use Type 2 diabetes mellitus NIDDM Umbilical hernia Vitamin D deficiency Surgical History Fusion of spine LUMBAR X 2 H/O parathyroidectomy History of arthroscopy LEFT KNEE History of bronchoscopy (07/23/20) Fine Needle Aspiration History of colonoscopy (11/19/12) History of colonoscopy (07/12/17) History of cystoscopy Left ureteroscopy, basket stone, cystoscopy, left stent exchange: 11/09/16: LMA#5 atraumatic History of neck surgery NERVE BLOCK FOR HEADACHES Repair of umbilical hernia (07/28/10) S/P laminectomy S/P parathyroidectomy S/P umbilical hernia repair, follow-up exam Status post cholecystectomy Status post lumbar spinal fusion Family History Father , Passed Age 73 Heart disease Hypertension Mother , Passed Age 57 Heart disease Hypertension Lung disease Sister Breast cancer Sister No problems noted. Uncle Throat cancer Aunt Bone cancer Sister , Passed Age 40 due to Lung Cancer Lung cancer Brother No problems noted. Son No problems noted. Son No problems noted. Son No problems noted. 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 Physical Exam Physical Exam: CONSTITUTIONAL: WNWD, vitals as above, generally well- appearing, NAD but becomes hypoxic with minimal exertion. EYES: EOMI bilaterally, PERRL, normal conjunctivae, no scleral icterus ENT: external ear and nose normal, oropharynx clear, mucous membranes are dry. NECK: trachea midline RESPIRATORY: +rhonchi throughout all lung mandujano, no rales or wheezes, normal respiratory effort CARDIOVASCULAR: tachy rate and regular rhythm, S1 and 2 heard without murmurs, gallops or rubs, no JVD, no peripheral edema CHEST: inspection of chest was normal GASTROINTESTINAL: soft, TTP in LLQ, no guarding , ND . MUSCULOSKELETAL: strength 5/5 throughout, head is normocephalic and atraumatic SKIN: warm and dry, no rashes or petechiae NEUROLOGIC: CN 2-12 grossly intact, no sensory deficit, normal cognition, normal speech, no tremor PSYCHIATRIC: alert cooperative and oriented to person, place and time. Euthymic mood, makes good eye contact, language grossly intact, recent and remote memory grossly intact. Results & Data Results & Data ([facility]) Vital Signs (Past 12 Hours) Vital Signs Temp Pulse Resp BP Pulse Ox O2 Del Method O2 Flow Rate 11/29/21 09:05 92 Nasal Cannula 4 11/29/21 09:10 114 H 27 H 94 Nasal Cannula 4 11/29/21 09:00 119 H 33 H 86 L Room Air 11/29/21 08:56 120 H 11/29/21 08:00 37.4 C 129 H 20 116/67 98 Room Air Laboratory Results Short CBC 11/29/21 Range/Units 08:36 WBC 0.50 L* (4.8-10.8) K/ul Hgb 9.9 L (14.0-18.0) g/dl Hct 29.1 L (40.1-51.0) % Plt Count 10 L* (130-400) K/uL BMP 11/29/21 08:36 Sodium 136 Potassium 4.0 Chloride 107 Carbon Dioxide 20 L BUN 29 H Creatinine 2.06 H Glucose 103 H Calcium 9.3 Liver Function 11/29/21 Range/Units 08:36 Total Bilirubin 0.9 (0.2-1.0) mg/dl Direct Bilirubin 0.4 H (0-0.2) mg/dl AST 25 (13-39) U/L ALT 61 H (7-52) U/L Alkaline Phosphatase 76 (34-104) U/L Albumin 3.5 (3.4-5.0) gm/dl Diagnostic Findings Chest X-Ray 11/29/21 08:16 XR chest 1V portable CLINICAL HISTORY: Sepsis TECHNIQUE: Single frontal radiograph of the chest was obtained. Comparison: Comparison is made to chest radiograph 09/10/[address] chest 10/19/2020 FINDINGS: A port catheter is seen. Calcified aortic knob is seen. Focal linear density is in the left midlung. No evidence of pleural effusion or pneumothorax. IMPRESSION: Linear density in the left midlung is favored to represent atelectasis. No pneumonia is seen. ACT 112: Negative or not required by law. Electronically signed by: Bogdan Douglass M.D. 11/29/2021 9:45 AM
[2021-11-29] MEDS ORDERED: ACETAMINOPHEN 500 MG TAB PO PRN (11:25)
[2021-11-29] MEDS ORDERED: GLUCAGON FOR INJ 1 MG VIAL SQ PRN (11:26)
[2021-11-29] MEDS ORDERED: GLUCOSE 10 TAB/TUBE PO PRN (11:26)
[2021-11-29] MEDS ORDERED: GLUCOSE 40% GEL 15 GM TUBE PO PRN (11:26)
[2021-11-29] MEDS ORDERED: DEXTROSE 50% 50 ML SYRINGE IV PRN (11:26)
[2021-11-29] MEDS ORDERED: CARBOHYDRATES FOR HYPOGLYCEMIA PO PRN (11:26)
--- NOTE | 2021-11-29 11:57 | CT Scan Report ---
CT abd pelvis wo con CLINICAL HISTORY: LLQ pain, neutropenic, LL rib pain TECHNIQUE: Helical axial images of the abdomen and pelvis were obtained. Automated dose lowering tech niques and/or adjustment according to patient size were utilized for this exam. This exam was perfor med without intravenous contrast. CT DOSE: 921.40 mGycm COMPARISON: Comparison is made to CT abdomen pelvis 06/17/2019 FINDINGS: Lower chest: Bronchial wall thickening is seen. Liver: Unremarkable. No focal lesions are seen. Gallbladder and biliary tree: Patient is status post cholecystectomy. No intra- or extrahepatic bilia ry ductal dilation. Pancreas: Unremarkable, no focal lesions. Spleen: Calcifications are noted in the spleen compatible with prior granulomatous disease. Adrenals: A complex appearing left adrenal lesion is new from prior exam measuring 4.1 cm. A 1.5 cm r ight adrenal lesion is also seen. Kidneys and ureters: Numerous renal cysts are partially visualized bilaterally. There are nonobstruct fady stones. Bladder: Unremarkable. Reproductive organs: Unremarkable. Bowel: Unremarkable appearance of the bowel. The appendix is normal. Lymph nodes Retroperitoneal: Unremarkable. Pelvic: Unremarkable. Mesenteric: Unremarkable. Peritoneum: Normal. Vessels: Atherosclerotic calcifications are seen. Abdominal wall: Unremarkable. Bones: Degenerative changes in the visualized spine. Posterior fixation hardware is seen at L5-S1. IMPRESSION: 1. Interval development of left greater than right adrenal masses. Correlation with adrenal protocol CT or MRI is recommended. 2. Bronchial wall thickening is seen in the bilateral lungs compatible with acute/inflammatory bronc hitis. 3. Otherwise no acute abnormality, in particular no evidence of diverticulitis. ACT 112: Negative or not required by law. Electronically signed by: Bogdan Douglass M.D. 11/29/2021 11:56 AM
[2021-11-29] MEDS: AZITHROMYCIN 250 MG TAB PO SCH (13:05)
[2021-11-29] MEDS: FINASTERIDE 5 MG TAB PO SCH (13:05)
[2021-11-29] MEDS: METOPROLOL SUCC 50MG EXT REL TAB PO SCH (13:06)
[2021-11-29] MEDS: FLUTICASONE/VILANTEROL 200/25MCG 14 PUFFS/INHALER INH SCH (13:06)
[2021-11-29] MEDS: POTASSIUM CHLORIDE CRTAB 20 MEQ TABCR PO SCH ×2 (13:07→21:25)
[2021-11-29] MEDS: GABAPENTIN 600 MG TAB PO SCH ×2 (13:07→22:10)
[2021-11-29] MEDS: UMECLIDINIUM BROMIDE 62.5MCG/BLISTER 7 PUFFS/INHALER INH SCH (13:08)
[2021-11-29] MEDS ORDERED: ONDANSETRON INJ 2 MG/ML 2 ML VIAL IV PRN (13:27)
[2021-11-29] MEDS ORDERED: ACETAMINOPHEN 325 MG TAB PO PRN (13:27)
[2021-11-29] MEDS ORDERED: ACETAMINOPHEN 325 MG TAB PO ONE (13:27)
[2021-11-29] MEDS ORDERED: diphenhydrAMINE Capsule 25 MG CAP PO ONE (13:27)
[2021-11-29] MEDS ORDERED: POLYETHYLENE (MIRALAX) 17 GM PACK PO PRN (13:27)
[2021-11-29] MEDS: NICOTINE 21 MG/24 HR TDSY TD SCH (13:40)
[2021-11-29] MEDS ORDERED: Patient's HEIGHT &/or WEIGHT Needed SCH (13:45)
[2021-11-29 14:06] LABS: Appearance Urine Cloudy (Clear); Bilirubin Urine Negative (Negative); Blood Urine 3+ (Negative); Color Urine Yellow; Glucose Urine UA Negative (Negative); Ketones Urine Negative (Negative); Leukocyte Esterase Urine Negative (Negative); Nitrite Urine Negative (Negative); Protein Urine 2+ (Negative); Specific Gravity Urine 1.016 (1.000-1.030); Urobilinogen Urine Negative (Negative); pH Urine 5.5 (4.5-7.5)
[2021-11-29 14:26] LABS: Bacteria Urine Automated 1+ (Negative); Epithelial Cell Urine Auto 0-5 /lpf (0-5)
[2021-11-29] MEDS: INSULIN ASPART PER UNIT SC SCH ×3 (15:14→20:21)
[2021-11-29] MEDS: ALBUT/IPRATROP 3MG/0.5MG NEB 3 ML VIAL NEB SCH ×2 (15:28→19:06)
[2021-11-29] MEDS: LANTUS PER UNIT CHARGE SQ SCH ×2 (15:39→21:26)
[2021-11-29] MEDS ORDERED: LACTATED RINGER'S 1,000 ML IV SCH (21:00)
[2021-11-29] MEDS ORDERED: CEFEPIME 1,000 MG in SYRINGE 0 ML IV SCH (21:00)
[2021-11-29] MEDS: ATORVASTATIN 40 MG TAB PO SCH (21:26)
[2021-11-29] MEDS: CEFEPIME 2,000 MG in SYRINGE 0 ML IV SCH (21:32)
[2021-11-29 22:46] LABS: Dohle Bodies 1+; Hematocrit (blood only) 22.7 % (40.1-51.0); Hemoglobin 7.9 g/dl (14.0-18.0); Mean Corpuscular Hemoglobin 37.8 pg (25.0-34.0); Mean Corpuscular Hgb Conc 34.8 g/dL (32.0-36.0); Mean Corpuscular Volume 108.6 fL (80.0-100.0); Mean Platelet Volume 13.9 fL (9.4-12.4); Platelet Count 14 K/uL (130-400); Platelet Estimate Signific. Decreased (Normal); RDW Coefficient of Variation 17.5 % (11.5-14.5); Red Blood Count 2.09 M/uL (4.63-6.08); White Blood Count 0.59 K/ul (4.8-10.8)
[2021-11-29 22:48] LABS: Eosinophils # (auto) 0.01 K/uL (0-0.50); Eosinophils % (auto) 1.7 %; Immature Granulocytes # (auto) 0.05 K/uL (0.00-0.02); Immature Granulocytes % (auto) 8.5 %; Lymphocytes # (auto) 0.23 K/uL (1.2-3.4); Monocytes # (auto) 0.18 K/uL (0.24-0.82); Monocytes % (auto) 30.5 %; Neutrophils # (auto) 0.12 K/uL (1.4-6.5); Neutrophils % (auto) 20.3 %
--- NOTE | 2021-11-30 05:26 | Electrocardiogram Report ---
Test Reason : Blood Pressure : / mmHG Vent. Rate : 115 BPM Atrial Rate : 115 BPM P-R Int : 134 ms QRS Dur : 094 ms QT Int : 336 ms P-R-T Axes : 068 044 077 degrees QTc Int : 464 ms Poor data quality, interpretation may be adversely affected Sinus tachycardia Incomplete right bundle branch block When compared with ECG of 19-OCT-2020 15:04, No significant change was found Confirmed by Kris King ([id number]) on 11/30/2021 5:26:54 AM Referred By: REFERRED SELF Confirmed By:Kris King
[2021-11-30 07:06] LABS: Eosinophils # (auto) 0.01 K/uL (0-0.50); Eosinophils % (auto) 1.1 %; Hematocrit (blood only) 23.9 % (40.1-51.0); Hemoglobin 8.1 g/dl (14.0-18.0); Lymphocytes # (auto) 0.31 K/uL (1.2-3.4); Lymphocytes % (auto) 35.6 %; Mean Corpuscular Hemoglobin 37.2 pg (25.0-34.0); Mean Corpuscular Hgb Conc 33.9 g/dL (32.0-36.0); Mean Corpuscular Volume 109.6 fL (80.0-100.0); Mean Platelet Volume 9.9 fL (9.4-12.4); Monocytes # (auto) 0.19 K/uL (0.24-0.82); Monocytes % (auto) 21.8 %; Neutrophils # (auto) 0.36 K/uL (1.4-6.5); Neutrophils % (auto) 41.5 %; Platelet Count 14 K/uL (130-400); RDW Coefficient of Variation 17.2 % (11.5-14.5); RDW Standard Deviation 69.8 fL (36.4-46.3); Red Blood Count 2.18 M/uL (4.63-6.08); White Blood Count 0.87 K/ul (4.8-10.8)
[2021-11-30 07:09] LABS: Fibrinogen > 860 mg/dl (184-400); Prothrombin Time 10.9 Seconds (9.0-12.0)
[2021-11-30] MEDS: ALBUT/IPRATROP 3MG/0.5MG NEB 3 ML VIAL NEB SCH ×4 (07:18→17:55)
[2021-11-30 08:01] LABS: Estimated Average Glucose 105 mg/dl; Hemoglobin A1C 5.3 % (4.5-5.6)
[2021-11-30] MEDS ORDERED: DEXTROMETHORPHAN POLYMR COMPLX 30 MG/5 ML UDP PO PRN (09:18)
[2021-11-30] MEDS: FLUTICASONE/VILANTEROL 200/25MCG 14 PUFFS/INHALER INH SCH (09:21)
[2021-11-30] MEDS: INSULIN ASPART PER UNIT SC SCH ×4 (09:21→21:13)
[2021-11-30] MEDS: METOPROLOL SUCC 50MG EXT REL TAB PO SCH (09:22)
[2021-11-30] MEDS: UMECLIDINIUM BROMIDE 62.5MCG/BLISTER 7 PUFFS/INHALER INH SCH (09:22)
[2021-11-30] MEDS: FINASTERIDE 5 MG TAB PO SCH (09:23)
[2021-11-30] MEDS: GABAPENTIN 600 MG TAB PO SCH ×3 (09:23→21:03)
[2021-11-30] MEDS: LANTUS PER UNIT CHARGE SQ SCH ×2 (09:24→21:57)
[2021-11-30] MEDS: NICOTINE 21 MG/24 HR TDSY TD SCH (09:24)
[2021-11-30] MEDS: CEFEPIME 2,000 MG in SYRINGE 0 ML IV SCH ×2 (09:25→21:52)
[2021-11-30] MEDS: POTASSIUM CHLORIDE CRTAB 20 MEQ TABCR PO SCH ×2 (09:29→09:38)
[2021-11-30 10:22] LABS: Creatinine Clr Calc Pharmacy 45.3 ml/min; Est GFR (Non-African American) 40.6 ml/min
[2021-11-30] MEDS ORDERED: SODIUM CHLORIDE 0.9% 500 ML IV ONE (16:02)
--- NOTE | 2021-11-30 16:07 | Hospitalist Progress Note ---
Date of Service November 30, 2021 Assessment & Plan (1) Sepsis: (2) Hypoxia: Plan: Acute on Chronic respiratory failure with hypoxia Chronic oxygen dependency--on 3 L at bedtime H/O SHADY on CPAP Sepsis Pneumonia In setting of immunocompromise state CXR showed Linear density in the left midlung COVID, influenza, RSV screen negative Blood cultures negative to date Urine culture negative Home diuretics held today Gentle IV fluids for now On chronic azithromycin, added cefepime (3) Pneumonia: (4) Neutropenic fever: Plan: Chemotherapy induced Pancytopenia Management as above No bleeding issues Monitor CBC Check peripheral smear Transfuse 1 unit platelets today Follows with Dr. Goldstein (5) Antineoplastic chemotherapy induced pancytopenia: Plan: Recent chemo was two weeks ago. Transfuse as needed Monitor CBC (6) Brain metastasis: Plan: Known h/o brain mets s/p brain XRT Denies any headache, dizziness, change in vision (7) Type 2 diabetes mellitus: Plan: Hold home glipizide Continue Insulin per protocol Monitor BGs (8) Small cell lung cancer: Plan: Metastatic small cell neuroendocrine carcinoma Last chemo was on 11/19, and last whole brain radiation was on 11/12. Ongoing tobacco use disorder Received chemotherapy with carboplatin etoposide and atezolizumab Completed 4 cycles of chemotherapy Currently receiving radiation therapy Plan for starting on lurbinectedin after completion of radiation therapy Recent PET scan showed increased uptake of adrenal gland suggestive of me tastatic disease Needs follow-up with oncology upon discharge (9) Acute renal failure superimposed on stage 3 chronic kidney disease: Plan: Diuretics held for today Monitor renal function Avoid nephrotoxic agents as able (10) DVT prophylaxis: Plan: SCDs for now Re: severe thrombocytopenia. Code Status Full code Admission and Anticipated Discharge Date Admission Date: November 29, 2021 Subjective Patient is seen and examined at bedside States having known expectorant cough Also states having back pain Feels tired Reports chronic dizziness which is unchanged Denies chest pain, dyspnea, abdominal pain No other complaints Review of Systems Review of Systems: All systems reviewed & are unremarkable except as noted in Subjective Physical Exam Physical Exam: Physical Exam: Vitals signs as noted above General Appearance:Moderately built and nourished, no apparent distress, chronic ill appearing Head: normocephalic, Atraumatic Eyes: normal inspection, EOMI Neck: supple, Trachea midline Respiratory/Chest: Coarse breath sounds, +Chemo Port, No accessory muscle use Cardiovascular: S1, S2, No murmur Abdomen/GI:Soft, Non tender, Bowel sounds present Extremities/Musculoskeletal:normal inspection, Trace edema Neurologic/Psych:AAOX3, grossly no focal neurological deficits Skin: normal color, warm Results & Data Results & Data ([facility]) Vital Signs (Past 12 Hours) Vital Signs Temp Pulse Pulse Resp BP Pulse Ox O2 Del Method 11/30/21 15:22 36.7 C 115 H 20 113/71 92 11/30/21 14:50 109 H 18 91 Nasal Cannula 11/30/21 08:00 Nasal Cannula 11/30/21 08:00 102 H 11/30/21 11:13 103 H 18 94 Nasal Cannula 11/30/21 10:57 36.6 C 106 H 20 111/66 96 Nasal Cannula 11/30/21 07:20 101 H 20 93 Nasal Cannula 11/30/21 07:15 36.7 C 100 H 19 98/62 L 94 Nasal Cannula O2 Flow Rate 11/30/21 15:22 4 11/30/21 14:50 4 11/30/21 08:00 4 11/30/21 08:00 11/30/21 11:13 3 11/30/21 10:57 4 11/30/21 07:20 4 11/30/21 07:15 4 Laboratory Results Short CBC 11/29/21 11/30/21 Range/Units 21:53 05:53 WBC 0.59 L* 0.87 L* (4.8-10.8) K/ul Hgb 7.9 L 8.1 L (14.0-18.0) g/dl Hct 22.7 L 23.9 L (40.1-51.0) % Plt Count 14 L* 14 L* (130-400) K/uL BMP 11/30/21 05:58 Creatinine 1.77 H (1) Sepsis Sepsis acute organ dysfunction status: unspecified Sepsis type: sepsis due to unspecified organism Qualified Code(s): A41.9 - Sepsis, unspecified organism
[2021-11-30] MEDS: FAMOTIDINE 10 MG TABLET PO SCH (21:02)
[2021-11-30] MEDS: ATORVASTATIN 40 MG TAB PO SCH (21:52)
[2021-12-01] MEDS ORDERED: HEPARIN 100 UNIT/ML 5ML FLUSH FLUSH PRN (00:32)
[2021-12-01 06:57] LABS: Hemoglobin 7.6 g/dl (14.0-18.0); White Blood Count 1.65 K/ul (4.8-10.8)
[2021-12-01] MEDS: ALBUT/IPRATROP 3MG/0.5MG NEB 3 ML VIAL NEB SCH ×2 (07:09→10:41)
[2021-12-01 07:26] LABS: Albumin Globulin Ratio 0.8 (0.9-2); Albumin Level 3.2 gm/dl (3.4-5.0); BUN Creatinine Ratio 21.3 (10-20); Bilirubin,Total 0.8 mg/dl (0.2-1.0); Creatinine Clr Calc Pharmacy 53.5 ml/min; Est GFR (African American) 57.4 ml/min; Est GFR (Non-African American) 49.5 ml/min; Globulin 3.8 gm/dl (2.5-4.0); Magnesium 2.1 mg/dl (1.7-2.4); Potassium 3.8 mmol/L (3.5-5.1)
[2021-12-01 07:28] LABS: Mean Corpuscular Hemoglobin 37.4 pg (25.0-34.0); Mean Corpuscular Hgb Conc 34.5 g/dL (32.0-36.0); Mean Corpuscular Volume 108.4 fL (80.0-100.0); Mean Platelet Volume 11.7 fL (9.4-12.4); Platelet Count 30 K/uL (130-400); RDW Coefficient of Variation 16.7 % (11.5-14.5); RDW Standard Deviation 65.1 fL (36.4-46.3); Red Blood Count 2.03 M/uL (4.63-6.08); Toxic Granulation 1+
[2021-12-01 07:53] LABS: Eosinophils # (auto) 0.05 K/uL (0-0.50); Immature Granulocytes # (auto) 0.02 K/uL (0.00-0.02); Immature Granulocytes % (auto) 1.2 %; Lymphocytes % (auto) 24.2 %; Monocytes # (auto) 0.33 K/uL (0.24-0.82); Neutrophils # (auto) 0.85 K/uL (1.4-6.5); Neutrophils % (auto) 51.6 %
[2021-12-01] MEDS: FAMOTIDINE 10 MG TABLET PO SCH (08:42)
[2021-12-01] MEDS: FINASTERIDE 5 MG TAB PO SCH (08:42)
[2021-12-01] MEDS: GABAPENTIN 600 MG TAB PO SCH ×2 (08:42→14:06)
[2021-12-01] MEDS: FLUTICASONE/VILANTEROL 200/25MCG 14 PUFFS/INHALER INH SCH (08:43)
[2021-12-01] MEDS: METOPROLOL SUCC 50MG EXT REL TAB PO SCH (08:43)
[2021-12-01] MEDS: UMECLIDINIUM BROMIDE 62.5MCG/BLISTER 7 PUFFS/INHALER INH SCH (08:43)
[2021-12-01] MEDS: CEFEPIME 2,000 MG in SYRINGE 0 ML IV SCH (08:51)
[2021-12-01] MEDS: POTASSIUM CHLORIDE CRTAB 20 MEQ TABCR PO SCH (08:51)
[2021-12-01] MEDS: AZITHROMYCIN 250 MG TAB PO SCH (08:51)
[2021-12-01] MEDS: NICOTINE 21 MG/24 HR TDSY TD SCH (08:52)
[2021-12-01] MEDS: INSULIN ASPART PER UNIT SC SCH ×2 (08:52→11:59)
[2021-12-01] MEDS: LANTUS PER UNIT CHARGE SQ SCH (08:58)
--- NOTE | 2021-12-01 09:57 | XRay Report ---
XR chest 1V portable CLINICAL HISTORY: hypoxia, follow up COMPARISON STUDY: Chest CT October 19, 2020. Chest radiograph November 29, 2021. FINDINGS: Right internal jugular [id number] is in place. Pneumothorax or pleural effusion. Cardiac size is normal. Mediastinal contours are normal. No consolidation is identified. No evidence for pul monary edema. There is mild reticulonodular interstitial thickening. There may be minimal bilateral i nfrahilar opacity. IMPRESSION: Mild reticulonodular interstitial thickening and suspected mild bilateral infrahilar opa cities. The findings favor an infectious process. Radiographic follow-up is recommended. ACT 112: Negative or not required by law. Electronically signed by: Medardo Ponce M.D. 12/01/2021 9:56 AM
--- NOTE | 2021-12-01 10:33 | Hospitalist Progress Note ---
Date of Service December 01, 2021 Assessment & Plan (1) Sepsis: (2) Hypoxia: Plan: Acute on Chronic respiratory failure with hypoxia Chronic oxygen dependency--on 3 L at bedtime H/O SHADY on CPAP Sepsis Pneumonia In setting of immunocompromise state CXR showed Linear density in the left midlung COVID, influenza, RSV screen negative Blood cultures negative to date Urine culture negative Home diuretics held today On chronic azithromycin, added cefepime Discussed with ID, recommend Levaquin for 1 week, then resume home azithromycin MWF (3) Pneumonia: (4) Neutropenic fever: Plan: Chemotherapy induced Pancytopenia Management as above No bleeding issues Monitor CBC, WBC improving Checked peripheral smear Transfused 2 unit platelets Follows with Dr. Goldstein 12/01 - discussed w/ Dr. Goldstein. Platelet count today 30,000. Hemoglobin still less than 8, recommended blood transfusion. Patient received 1 unit of PRBC. Patient wants to leave AMA, will be discharged after blood transfusion. Plan to follow-up with Dr. Goldstein closely. Elevated AST, ALT - pt has no abd. pain -pt wants to leave today - wanted to leave AMA, will follow up as outpt (5) Antineoplastic chemotherapy induced pancytopenia: Plan: Recent chemo was two weeks ago. Transfuse as needed Monitor CBC (6) Brain metastasis: Plan: Known h/o brain mets s/p brain XRT Denies any headache, dizziness, change in vision (7) Type 2 diabetes mellitus: Plan: Hold home glipizide Continue Insulin per protocol Monitor BGs (8) Small cell lung cancer: Plan: Metastatic small cell neuroendocrine carcinoma Last chemo was on 11/19, and last whole brain radiation was on 11/12. Ongoing tobacco use disorder Received chemotherapy with carboplatin etoposide and atezolizumab Completed 4 cycles of chemotherapy Currently receiving radiation therapy Plan for starting on lurbinectedin after completion of radiation therapy Recent PET scan showed increased uptake of adrenal gland suggestive of metastatic disease Needs follow-up with oncology upon discharge (9) Acute renal failure superimposed on stage 3 chronic kidney disease: Plan: Diuretics held for today Monitor renal function Avoid nephrotoxic agents as able (10) DVT prophylaxis: Plan: SCDs for now Re: severe thrombocytopenia. Code Status Full code Admission and Anticipated Discharge Date Admission Date: November 29, 2021 Subjective Patient is seen in follow up of neutropenic fever, pna He is sitting in the chair, in no acute distress, on supplemental oxygen He wants to leave AMA, patient left AMA from hospitals before Discussed with him that I would first discuss with his oncologist and ID physician before making further plan Contacted Dr. Goldstein, patient's oncologist. Given his low hemoglobin, recommended blood transfusion. Also recommended p.o. antibiotics on discharge. Plans to see him in his office earlier. Contacted ID physician, given no positive cultures, plan to discharge on Levaquin for 1 week, with close follow-up Pt denies chest pain, dyspnea, abdominal pain No other complaints Review of Systems Review of Systems: All systems reviewed & are unremarkable except as noted in Subjective Physical Exam Physical Exam: General Appearance:Moderately built and nourished, no apparent distress, chronic ill appearing Head: normocephalic, Atraumatic Eyes: normal inspection, EOMI Neck: supple Respiratory/Chest: + rhonchi R>L, +Chemo Port, No accessory muscle use, on suppl. O2 Cardiovascular: S1, S2, No murmur Abdomen/GI:Soft, Non tender, Bowel sounds present Extremities/Musculoskeletal:normal inspection, Trace edema Neurologic/Psych:AAOX3, grossly no focal neurological deficits Skin: normal color, warm Results & Data Results & Data ([facility]) Vital Signs (Past 12 Hours) Vital Signs Temp Pulse Pulse Resp BP Pulse Ox O2 Del Method 12/01/21 07:10 100 H 20 95 Nasal Cannula 12/01/21 07:06 36.9 C 99 H 18 108/71 95 Nasal Cannula 12/01/21 03:03 36.8 C 102 H 18 110/66 92 Room Air 12/01/21 00:00 112 H 11/30/21 23:29 36.6 C 98 H 18 117/69 93 BiPAP 11/30/21 22:42 100 H 27 H 95 O2 Flow Rate 12/01/21 07:10 4 12/01/21 07:06 3 12/01/21 03:03 12/01/21 00:00 11/30/21 23:29 11/30/21 22:42 3 Laboratory Results 12/01/21 12/01/21 12/01/21 Range/Units 07:26 05:46 05:46 WBC 1.65 L (4.8-10.8) K/ul RBC 2.03 L (4.63-6.08) M/uL Hgb 7.6 L (14.0-18.0) g/dl Hct 22.0 L (40.1-51.0) % MCV 108.4 H (80.0-100.0) fL MCH 37.4 H (25.0-34.0) pg MCHC 34.5 (32.0-36.0) g/dL RDW Std Deviation 65.1 H (36.4-46.3) fL RDW Coeff of Gregorio 16.7 H (11.5-14.5) % Plt Count 30 L D (130-400) K/uL MPV 11.7 (9.4-12.4) fL Immature Gran % (Auto) 1.2 % Neut % (Auto) 51.6 % Lymph % (Auto) 24.2 % [place] % (Auto) 20.0 % Eos % (Auto) 3.0 % Baso % (Auto) 0.0 % Neut # (Auto) 0.85 L* (1.4-6.5) K/uL Lymph # (Auto) 0.40 L (1.2-3.4) K/uL [place] # (Auto) 0.33 (0.24-0.82) K/uL Eos # (Auto) 0.05 (0-0.50) K/uL Baso # (Auto) 0.00 (0-0.2) K/uL Immature Gran # (Auto) 0.02 (0.00-0.02) K/uL Toxic Granulation 1+ Peripher Smr Path Cons Sodium 135 L (136-145) mmol/L Potassium 3.8 (3.5-5.1) mmol/L Chloride 106 (98-107) mmol/L Carbon Dioxide 21 (21-32) mmol/L Anion Gap 8 (3-11) BUN 32 H (6-23) mg/dl Creatinine 1.50 H (0.6-1.4) mg/dl Est Cr Clr Drug Dosing 53.5 ml/min Est GFR ( Amer) 57.4 ml/min Est GFR (Non-Af Amer) 49.5 ml/min BUN/Creatinine Ratio 21.3 H (10-20) Glucose 78 (70-99(Fasting)) mg/dl POC Glucose 98 (70-99) mg/dl Calcium 9.0 (8.5-10.1) mg/dl Magnesium 2.1 (1.7-2.4) mg/dl Total Bilirubin 0.8 (0.2-1.0) mg/dl AST 69 H (13-39) U/L ALT 89 H (7-52) U/L Alkaline Phosphatase 87 (34-104) U/L Total Protein 7.0 (6.0-8.3) gm/dl Albumin 3.2 L (3.4-5.0) gm/dl Globulin 3.8 (2.5-4.0) gm/dl Albumin/Globulin Ratio 0.8 L (0.9-2) Blood Type Antibody Screen 11/30/21 11/30/21 11/30/21 Range/Units 20:43 16:19 11:15 WBC (4.8-10.8) K/ul RBC (4.63-6.08) M/uL Hgb (14.0-18.0) g/dl Hct (40.1-51.0) % MCV (80.0-100.0) fL MCH (25.0-34.0) pg MCHC (32.0-36.0) g/dL RDW Std Deviation (36.4-46.3) fL RDW Coeff of Gregorio (11.5-14.5) % Plt Count (130-400) K/uL MPV (9.4-12.4) fL Immature Gran % (Auto) % Neut % (Auto) % Lymph % (Auto) % [place] % (Auto) % Eos % (Auto) % Baso % (Auto) % Neut # (Auto) (1.4-6.5) K/uL Lymph # (Auto) (1.2-3.4) K/uL [place] # (Auto) (0.24-0.82) K/uL Eos # (Auto) (0-0.50) K/uL Baso # (Auto) (0-0.2) K/uL Immature Gran # (Auto) (0.00-0.02) K/uL Toxic Granulation Peripher Smr Path Cons Sodium (136-145) mmol/L Potassium (3.5-5.1) mmol/L Chloride (98-107) mmol/L Carbon Dioxide (21-32) mmol/L Anion Gap (3-11) BUN (6-23) mg/dl Creatinine (0.6-1.4) mg/dl Est Cr Clr Drug Dosing ml/min Est GFR ( Amer) ml/min Est GFR (Non-Af Amer) ml/min BUN/Creatinine Ratio (10-20) Glucose (70-99(Fasting)) mg/dl POC Glucose 150 H 145 H 116 H (70-99) mg/dl Calcium (8.5-10.1) mg/dl Magnesium (1.7-2.4) mg/dl Total Bilirubin (0.2-1.0) mg/dl AST (13-39) U/L ALT (7-52) U/L Alkaline Phosphatase (34-104) U/L Total Protein (6.0-8.3) gm/dl Albumin (3.4-5.0) gm/dl Globulin (2.5-4.0) gm/dl Albumin/Globulin Ratio (0.9-2) Blood Type Antibody Screen 11/29/21 Range/Units 08:45 WBC (4.8-10.8) K/ul RBC (4.63-6.08) M/uL Hgb (14.0-18.0) g/dl Hct (40.1-51.0) % MCV (80.0-100.0) fL MCH (25.0-34.0) pg MCHC (32.0-36.0) g/dL RDW Std Deviation (36.4-46.3) fL RDW Coeff of Gregorio (11.5-14.5) % Plt Count (130-400) K/uL MPV (9.4-12.4) fL Immature Gran % (Auto) % Neut % (Auto) % Lymph % (Auto) % [place] % (Auto) % Eos % (Auto) % Baso % (Auto) % Neut # (Auto) (1.4-6.5) K/uL Lymph # (Auto) (1.2-3.4) K/uL [place] # (Auto) (0.24-0.82) K/uL Eos # (Auto) (0-0.50) K/uL Baso # (Auto) (0-0.2) K/uL Immature Gran # (Auto) (0.00-0.02) K/uL Toxic Granulation Peripher Smr Path Cons Sodium (136-145) mmol/L Potassium (3.5-5.1) mmol/L Chloride (98-107) mmol/L Carbon Dioxide (21-32) mmol/L Anion Gap (3-11) BUN (6-23) mg/dl Creatinine (0.6-1.4) mg/dl Est Cr Clr Drug Dosing ml/min Est GFR ( Amer) ml/min Est GFR (Non-Af Amer) ml/min BUN/Creatinine Ratio (10-20) Glucose (70-99(Fasting)) mg/dl POC Glucose (70-99) mg/dl Calcium (8.5-10.1) mg/dl Magnesium (1.7-2.4) mg/dl Total Bilirubin (0.2-1.0) mg/dl AST (13-39) U/L ALT (7-52) U/L Alkaline Phosphatase (34-104) U/L Total Protein (6.0-8.3) gm/dl Albumin (3.4-5.0) gm/dl Globulin (2.5-4.0) gm/dl Albumin/Globulin Ratio (0.9-2) Blood Type O Positive Antibody Screen NEGATIVE Medications Administered Current Inpatient Medications Acetaminophen (Acetaminophen 325 Mg Tab) 650 mg PO Q4H PRN PRN Reason: Pain or Fever Stop: 12/29/21 13:26 Last Admin: 11/30/21 03:19 Dose: 650 mg Albuterol (Albut/Ipratrop 3mg/0.5mg Neb 3 Ml Vial) 3 ml NEB QIDR [facility]; Protocol Stop: 12/01/21 14:59 Last Admin: 12/01/21 10:41 Dose: 3 ml Atorvastatin Calcium (Atorvastatin 40 Mg Tab) 40 mg PO QPM [facility] Stop: 12/29/21 20:59 Last Admin: 11/30/21 21:52 Dose: 40 mg Azithromycin (Azithromycin 250 Mg Tab) 250 mg PO MoWeFr@0900 [facility] Stop: 12/29/21 12:29 Last Admin: 12/01/21 08:51 Dose: 250 mg Dextromethorphan Polymer Complex (Dextromethorphan Polymr Complx 30 Mg/5 Ml Udp) 30 mg PO Q8H PRN PRN Reason: Cough Stop: 12/30/21 09:17 Dextrose (Dextrose 50% 50 Ml Syringe) 25 - 50 ml IV UD PRN; Protocol PRN Reason: Hypoglycemia Protocol Stop: 12/29/21 11:25 Famotidine (Famotidine 10 Mg Tablet) 10 mg PO BID [facility] Stop: 12/30/21 19:59 Last Admin: 12/01/21 08:42 Dose: 10 mg Finasteride (Finasteride 5 Mg Tab) 5 mg PO DAILY [facility] Stop: 12/29/21 12:14 Last Admin: 12/01/21 08:42 Dose: 5 mg Fluticasone/Vilanterol (Fluticasone/Vilanterol 200/25mcg 14 Puffs/Inhaler) 1 puffs INH QAM [facility] Stop: 12/29/21 12:29 Last Admin: 12/01/21 08:43 Dose: 1 puffs Gabapentin (Gabapentin 600 Mg Tab) 600 mg PO TID [facility] Stop: 12/29/21 13:59 Last Admin: 12/01/21 14:06 Dose: 600 mg Glucagon (Glucagon For Inj 1 Mg Vial) 1 mg SQ UD PRN; Protocol PRN Reason: Hypoglycemia Protocol Stop: 12/29/21 11:25 Glucose (Glucose 40% Gel 15 Gm Tube) 15 - 30 gm PO UD PRN; Protocol PRN Reason: Hypoglycemia Protocol Stop: 12/29/21 11:25 Glucose (Glucose 10 Tab/Tube) 4 - 8 tab PO UD PRN; Protocol PRN Reason: Hypoglycemia Treatment Stop: 12/29/21 11:25 Guaifenesin (Guaifenesin 600 Mg Tabcr) 600 mg PO Q12 [facility] Stop: 12/31/21 11:14 Last Admin: 12/01/21 12:13 Dose: 600 mg Heparin Sodium (Porcine) (Heparin 100 Unit/Ml 5ml Flush) 5 ml FLUSH PRN PRN PRN Reason: Flush Stop: 12/31/21 00:31 Cefepime HCl 2,000 mg/ Syringe 20 mls @ 5 mls/min IV Q12H [facility]; Protocol Stop: 12/06/21 08:59 Last Admin: 12/01/21 08:51 Dose: 5 mls/min Sodium Chloride (Nss) 250 mls @ 15 mls/hr IV .[id number] PRN PRN Reason: For Transfusion Stop: 12/01/21 20:55 Insulin Aspart (Insulin Aspart Per Unit) 0 units SC ACHS [facility] Stop: 12/29/21 11:29 Last Admin: 12/01/21 11:59 Dose: Not Given Insulin Glargine (Lantus Per Unit Charge) 15 units SQ BID [facility] Stop: 12/29/21 12:29 Last Admin: 12/01/21 08:58 Dose: 15 units Metoprolol Succinate (Metoprolol Succ 50mg Ext Rel Tab) 50 mg PO DAILY [facility] Stop: 12/29/21 12:29 Last Admin: 12/01/21 08:43 Dose: 50 mg Miscellaneous (Carbohydrates For Hypoglycemia ) 15 - 30 gm PO UD PRN PRN Reason: Hypoglycemia Protocol Stop: 12/29/21 11:25 Miscellaneous (Remove Nicoderm Patch) 1 each N/A DAILY@0859 [facility] Stop: 12/30/21 08:58 Last Admin: 12/01/21 08:52 Dose: 1 each Nicotine (Nicotine 21 Mg/24 Hr Tdsy) 21 mg TD QAM [facility] Stop: 12/29/21 13:29 Last Admin: 12/01/21 08:52 Dose: 21 mg Ondansetron HCl (Ondansetron Inj 2 Mg/Ml 2 Ml Vial) 4 mg IV Q6H PRN PRN Reason: Nausea Stop: 12/29/21 13:26 Polyethylene Glycol (Polyethylene (Miralax) 17 Gm Pack) 17 gm PO DAILY PRN PRN Reason: Constipation Stop: 12/29/21 13:26 Potassium Chloride (Potassium Chloride Crtab 20 Meq Tabcr) 20 meq PO DAILY [facility] Stop: 12/30/21 09:29 Last Admin: 12/01/21 08:51 Dose: 20 meq Umeclidinium [place] (Umeclidinium [place] 62.5mcg/Blister 7 Puffs/Inhaler) 1 puffs INH QDR [facility] Stop: 12/29/21 12:44 Last Admin: 12/01/21 08:43 Dose: 1 puffs (1) Sepsis Sepsis acute organ dysfunction status: unspecified Sepsis type: sepsis due to unspecified organism Qualified Code(s): A41.9 - Sepsis, unspecified organism
[2021-12-01] MEDS ORDERED: SODIUM CHLORIDE 0.9% 250 ML IV PRN (10:55)
[2021-12-01] MEDS ORDERED: guaiFENesin 600 MG TABCR PO SCH (11:15)
[2021-12-01 12:07] VITALS: TEMP 97.9
[2021-12-01 15:01] VITALS: BP 119/73
--- NOTE | 2021-12-01 15:09 | Discharge Summary ---
Date of Service December 01, 2021 Admission HPI Per Admitting Provider 61 yo M with metastatic lung cancer to his brain presents with weakness and fever. Last chemo was on 11/19, and last whole brain radiation was on 11/12. He is not taking any decadron, stopping with last XRT treatment. No chest pain, +SOB, no headache or dizziness currently. Fever at home including to 102F this am. He is generally weak, which is what brought him to the ER. +lower left abd pain started around the time he injured his lower right ribs when he rolled over a stump root on the ground. The abdominal pain came after that and is constant, sharp, doesn't radiate. The coughing is making this pain worse. He expresses irritation at being sick and in the hospital so much. It was explained to him that with his brain mets and low platelet count (platelet function was explained) he runs a risk of spontaneously bleeding into his brain. If this occurs, it was explained to both he and his that we have no ability to treat him here at this facility as there is no neurosurgeon on staff. I offered to transfer him to a tertiary care facility, and he declined, knowing that he would need this emergently if he bled into his brain. Both he and his verbalized understanding regarding what that meant. Otherwise denies any chest pain. Troy some right ear fullness (bilateral TM pearly and clear of fluid today). Denies bleeding, bruising or skin findings except for a couple of dog scratches on his left leg which are closed. Reports low appetite and low PO intake for the past few days without nausea. This is a typical post chemotherapy course for him. 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 CT scan June 2020 revealed a left upper lobe lobulated mass with adenopathy. PET scan on 2020 revealed metabolically active nodules. 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 He is smoked 2 packs/day for about 50 years. He was started on 3 cycles carboplatin etoposide combination with last chemotherapy in October 2020. He completed prophylactic cranial radiation therapy in January 2021. He developed recurrent disease in 2021 and was rechallenged with the same chemotherapy including combination carboplatin etoposide and atezolizumab. He completed 4 cycles of chemotherapy with last dose on 08/25/2021. As a result of dizziness he had an MRI revealing for new enhancing subcentimeter lesions in the brain and is now receiving radiation therapy. PET scan was also done revealing overall stable disease with increasing intensity of uptake in the left adrenal gland consistent with metastatic disease. He had a disease progression while he was receiving atezolizumab with new brain mets. Second line lurbinectedin will be started after completion of radiation therapy. He sees Dr. James Goldstein for oncologic care. Admission Exam Per Admitting Provider CONSTITUTIONAL: WNWD, vitals as above, generally well-appearing, NAD but becomes hypoxic with minimal exertion. EYES: EOMI bilaterally, PERRL, normal conjunctivae, no scleral icterus ENT: external ear and nose normal, oropharynx clear, mucous membranes are dry. NECK: trachea midline RESPIRATORY: +rhonchi throughout all lung mandujano, no rales or wheezes, normal respiratory effort CARDIOVASCULAR: tachy rate and regular rhythm, S1 and 2 heard without murmurs, gallops or rubs, no JVD, no peripheral edema CHEST: inspection of chest was normal GASTROINTESTINAL: soft, TTP in LLQ, no guarding , ND . MUSCULOSKELETAL: strength 5/5 throughout, head is normocephalic and atraumatic SKIN: warm and dry, no rashes or petechiae NEUROLOGIC: CN 2-12 grossly intact, no sensory deficit, normal cognition, normal speech, no tremor PSYCHIATRIC: alert cooperative and oriented to person, place and time. Euthymic mood, makes good eye contact, language grossly intact, recent and remote memory grossly intact. Principal Diagnosis Neutropenic fever, pneumonia Discharge Exam General Appearance:Moderately built and nourished, no apparent distress, chronic ill appearing Head: normocephalic, Atraumatic Eyes: normal inspection, EOMI Neck: supple Respiratory/Chest: + rhonchi R>L, +Chemo Port, No accessory muscle use, on suppl. O2 Cardiovascular: S1, S2, No murmur Abdomen/GI:Soft, Non tender, Bowel sounds present Extremities/Musculoskeletal:normal inspection, Trace edema Neurologic/Psych:AAOX3, grossly no focal neurological deficits Skin: normal color, warm Discharge Data Allergies Allergy/AdvReac Type Severity Reaction Status Date / Time fluticasone Allergy Unknown throat and Verified 09/16/21 09:09 tongue swelling salmeterol Allergy Unknown throat and Verified 09/16/21 09:09 tongue swelling morphine AdvReac Severe Migraine Verified 09/16/21 09:09 Consultations 12/01/21 07:00 Consult Infectious Diseases Routine Ordered Studies 11/29/21 11:23 CT abd pelvis wo con Stat FINDINGS: Lower chest: Bronchial wall thickening is seen. Liver: Unremarkable. No focal lesions are seen. Gallbladder and biliary tree: Patient is status post cholecystectomy. No intra- or extrahepatic biliary ductal dilation. Pancreas: Unremarkable, no focal lesions. Spleen: Calcifications are noted in the spleen compatible with prior granulomatous disease. Adrenals: A complex appearing left adrenal lesion is new from prior exam measuring 4.1 cm. A 1.5 cm right adrenal lesion is also seen. Kidneys and ureters: Numerous renal cysts are partially visualized bilaterally. There are nonobstructive stones. Bladder: Unremarkable. Reproductive organs: Unremarkable. Bowel: Unremarkable appearance of the bowel. The appendix is normal. Lymph nodes Retroperitoneal: Unremarkable. Pelvic: Unremarkable. Mesenteric: Unremarkable. Peritoneum: Normal. Vessels: Atherosclerotic calcifications are seen. Abdominal wall: Unremarkable. Bones: Degenerative changes in the visualized spine. Posterior fixation hardware is seen at L5-S1. IMPRESSION: 1. Interval development of left greater than right adrenal masses. Correlation with adrenal protocol CT or MRI is recommended. 2. Bronchial wall thickening is seen in the bilateral lungs compatible with acute/inflammatory bronchitis. 3. Otherwise no acute abnormality, in particular no evidence of diverticulitis. Hospital Course (1) Sepsis: (2) Hypoxia: Acute on Chronic respiratory failure with hypoxia Chronic oxygen dependency--on 3 L at bedtime H/O SHADY on CPAP Sepsis Pneumonia In setting of immunocompromise state CXR showed Linear density in the left midlung COVID, influenza, RSV screen negative Blood cultures negative to date Urine culture negative Home diuretics held today On chronic azithromycin, added cefepime Discussed with ID, recommend Levaquin for 1 week, then resume home azithromycin MWF (3) Pneumonia: (4) Neutropenic fever: Chemotherapy induced Pancytopenia Management as above No bleeding issues Monitor CBC, WBC improving Checked peripheral smear Transfused 2 unit platelets Follows with Dr. Goldstein 12/01 - discussed w/ Dr. Goldstein. Platelet count today 30,000. Hemoglobin still less than 8, recommended blood transfusion. Patient received 1 unit of PRBC. Patient wants to leave AMA, will be discharged after blood transfusion. Plan to follow-up with Dr. Goldstein closely. Elevated AST, ALT - pt has no abd. pain -pt wants to leave today - wanted to leave AMA, will follow up as outpt (5) Antineoplastic chemotherapy induced pancytopenia: Recent chemo was two weeks ago. Transfuse as needed Monitor CBC (6) Brain metastasis: Known h/o brain mets s/p brain XRT Denies any headache, dizziness, change in vision (7) Type 2 diabetes mellitus: Hold home glipizide Continue Insulin per protocol Monitor BGs (8) Small cell lung cancer: Metastatic small cell neuroendocrine carcinoma Last chemo was on 11/19, and last whole brain radiation was on 11/12. Ongoing tobacco use disorder Received chemotherapy with carboplatin etoposide and atezolizumab Completed 4 cycles of chemotherapy Currently receiving radiation therapy Plan for starting on lurbinectedin after completion of radiation therapy Recent PET scan showed increased uptake of adrenal gland suggestive of metastatic disease Needs follow-up with oncology upon discharge (9) Acute renal failure superimposed on stage 3 chronic kidney disease: Diuretics held for today Monitor renal function Avoid nephrotoxic agents as able (10) DVT prophylaxis: SCDs Total Time Total Time Spent Total Time Spent (In Minutes): 40 Discharge Plan Discharge Items Patient Disposition: Home - Self-Care Reason For Visit: NEUTROPENIC FEVER Discharge Diagnosis: Neutropenic fever, pneumonia Activity: Per Instructions section Non-emergency contact: Primary Care Provider and Oncologist Call non-emergency contact if: you have any medication questions and your symptoms worsen Follow-up/Referrals: Anibal Donato MD [Primary Care Provider] - (Date & Time 12/06/2021 9:20 AM Provider Jessica Hawk PA-C Department [facility] ) Diet: Carb Consistent or DM2 Addtl Attending Provider Instructions: Follow up with your primary care doctor within 1 week. Also, make sure you follow-up with your oncologist, Dr. Goldstein. Take antibiotics, Levaquin, for 1 week. Monitor your symptoms at home, especially fever, cough, shortness of breath. Make sure to contact your healthcare provider if you have any worsening of your symptoms. While taking Levaquin, you do not need to take azithromycin. Resume azithromycin after you finish your Levaquin treatment. Also recommend taking guaifenesin/Mucinex and using flutter valve. Pending Studies at Discharge: Yes Studies:: Final blood cultures Stand-Alone Forms: My [facility], Smoking Cessation Medications and DC Order Prescriptions: New guaifenesin [Mucinex] 600 mg Tablet Extended Release 12hr 600 mg PO Q12 Qty: 10 0RF levofloxacin 750 mg tablet 750 mg PO DAILY 7 Days Qty: 7 0RF Continued glipizide 5 mg tablet 5 mg PO BID metoprolol succinate 50 mg tablet extended release 24 hr 50 mg PO DAILY atorvastatin 40 mg tablet 40 mg PO QPM acetaminophen 500 mg tablet 500 mg PO Q6H PRN (Reason: Pain) ondansetron HCl 8 mg tablet 8 mg PO Q8H PRN (Reason: Nausea) prochlorperazine maleate [Compazine] 10 mg tablet 10 mg PO Q6H PRN (Reason: Nausea) gabapentin 600 mg tablet 600 mg PO TID potassium chloride 20 mEq tablet extended release 20 meq PO TID azithromycin 250 mg tablet 250 mg PO Rx Instructions: 1 tablet every Monday, Monday, and Monday Spiriva Respimat 2.5 mcg/actuation mist 2 puffs inhalation DAILY Qty: 4 6RF Breo Ellipta 200-25 mcg/dose blister with device 1 inh inhalation QAM Qty: 60 5RF finasteride 5 mg tablet 5 mg PO DAILY Qty: 30 1RF albuterol sulfate 90 mcg/actuation Hfa Aerosol Inhaler 2 puff INHALATION Q6H PRN (Reason: Shortness Of Breath Or Wheezing) meclizine 25 mg tablet 25 mg PO TID torsemide 5 mg tablet 5 mg PO DAILY Pepcid AC 10 mg PO BID Discharge Orders: Discharge Order (Routine); Ordered 12/01/21 Ordered By: Wesley Pulido Admission Data Admit Date/Time: 11/29/21 10:34 Attending Provider: Wesley Pulido Admit Provider: Dianne Salomon Primary Care Provider: Anibal Donato Other Providers: Beto Love ; Portia Robles ; Gary Santamaria I. ; Kin Balderas II ; Sarahi Merritt ; Esequiel Ferguson ; James Whittington ; Angela Rosales ; Gordon Donnelly Other Interventions: Discharge Summary Assessment (RN) Last Done: 12/01/21 15:00
[2021-12-01 15:11] VITALS: PULSE 95; O2SAT 94
== END 2021-12-01 16:00 | disposition home or self-care (01) | DRG 871 ==
LOC: ED 07:58 → SUATTDRO 10:34 → EDINP 10:34 → 2S 13:15

== ENCOUNTER 2022-09-08 10:31 | Inpatient (IN) ==
--- NOTE | 2022-09-08 11:35 | Emergency Department Note ---
ED Provider Note History of Present Illness Chief Complaint: Headache Stated Complaint: DOC REF,HEADACHES,CANT WALK,WANTS MRI,WEAKNESS Time Seen by Provider: 09/08/22 11:10 Source: patient Mode of arrival: ambulatory Limitations: no limitations This patient is a 62-year-old male who presents to the emergency department accompanied by his for evaluation of headaches, leg weakness and ambulatory dysfunction over the past month. 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 Patient receives care through [facility] oncology and [facility] radiation oncology. He reportedly had a recent PET scan which showed "no new disease." Patient reports that over the past month, he has had gradual onset of headache located at the base of his skull, rated 7/10. He has taken Tylenol and Advil without relief. He has had worsening leg weakness and states that his legs give out on him frequently when he is walking. He has had 8 falls over the past few weeks and is unable to get up on his own when he does fall. reports that he has had slurred/garbled speech and does seem to be forgetful/repetitive at times. Patient does have an upcoming oncology appointment in 1 week. They called today and were recommended to come here for more emergent MRI. Patient denies any vomiting, fevers, numbness, tingling. Unknown if there are any vision changes due to patient's cataracts. Home Medications Medication Instructions Recorded Confirmed Type finasteride 5 mg tablet 5 mg PO DAILY #30 tabs 05/13/20 09/08/22 Rx acetaminophen 500 mg tablet 500 mg PO Q6H PRN Pain 08/20/20 09/08/22 History atorvastatin 40 mg tablet 40 mg PO QPM 08/20/20 09/08/22 History ondansetron HCl 8 mg tablet 8 mg PO Q8H PRN Nausea 09/14/20 09/08/22 History prochlorperazine maleate 10 mg 10 mg PO Q6H PRN Nausea 09/14/20 09/08/22 History tablet (Compazine) gabapentin 600 mg tablet 600 mg PO TID 10/13/20 09/08/22 History potassium chloride 20 mEq 20 meq PO TID 11/03/20 09/08/22 History tablet,extended release guaifenesin 600 mg tablet, 600 mg PO Q12 #10 tabs 12/01/21 09/08/22 Rx extended release 12 hr (Mucinex) meclizine 25 mg tablet 25 mg PO TID PRN Dizziness 06/09/22 09/08/22 History metoprolol succinate 50 mg 25 mg PO DAILY 06/09/22 09/08/22 History tablet,extended release 24 hr omeprazole 20 mg capsule,delayed 20 mg PO DAILY 06/09/22 09/08/22 History release pseudoephedrine HCl 120 mg 120 mg PO Q12H 06/09/22 09/08/22 History tablet,extended release fluticasone fur. 200 mcg-umeclid 1 inh inhalation DAILY 07/15/22 09/08/22 History 62.5 mcg-vilant 25 mcg inhalat.powder (Trelegy Ellipta) famotidine 10 mg tablet (Pepcid AC) 10 mg PO BID PRN Heartburn 09/08/22 09/08/22 History Allergies Allergy/AdvReac Type Severity Reaction Status Date / Time fluticasone Allergy Severe throat and Verified 09/08/22 16:05 tongue swelling lisinopril Allergy Severe THROAT & Verified 09/08/22 16:05 TONGUE SWELLED salmeterol Allergy Intermediate throat and Verified 09/08/22 16:05 tongue swelling morphine AdvReac Severe Migraine Verified 09/08/22 16:05 Past Med/Surg History Medical History (Updated 09/08/22 @ 21:51 by Bev Ann PA-C) Arthritis Asthma BPH (benign prostatic hyperplasia) Cholelithiases Chronic back pain CKD (chronic kidney disease), stage III COPD (chronic obstructive pulmonary disease) Depression Dyslipidemia Erectile dysfunction Essential hypertension GERD (gastroesophageal reflux disease) controlled Hematuria History of nicotine dependence History of renal calculi Hyperlipidemia Hyperparathyroidism Kidney stone on left side Lumbar spinal stenosis Obesity Osteoarthritis of shoulders, bilateral PSVT (paroxysmal supraventricular tachycardia) Pulmonary emphysema Sciatica Sleep apnea CPAP HS + 1L O2 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 Tobacco use Type 2 diabetes mellitus NIDDM Umbilical hernia Vitamin D deficiency Surgical History Fusion of spine LUMBAR X 2 H/O parathyroidectomy History of arthroscopy LEFT KNEE History of bronchoscopy (07/23/20) Fine Needle Aspiration History of colonoscopy (11/19/12) History of colonoscopy (07/12/17) History of cystoscopy Left ureteroscopy, basket stone, cystoscopy, left stent exchange: 11/09/16: LMA#5 atraumatic History of neck surgery NERVE BLOCK FOR HEADACHES Repair of umbilical hernia (07/28/10) S/P laminectomy S/P parathyroidectomy S/P umbilical hernia repair, follow-up exam Status post cholecystectomy Status post lumbar spinal fusion Family History Father , Passed Age 73 Heart disease Hypertension Mother , Passed Age 57 Heart disease Hypertension Lung disease Sister Breast cancer Sister No problems noted. Uncle Throat cancer Aunt Bone cancer Sister , Passed Age 40 due to Lung Cancer Lung cancer Brother No problems noted. Son No problems noted. Son No problems noted. Son No problems noted. Social History Smoking Status: Current every day smoker Tobacco Type: Cigarettes packs per day: 2; Cigarettes Per Day: 35; Second Hand Exposure: No; Do You Dip or Chew Tobacco: No; Tobacco Cessation Education Requested by Patient: No Hx Alcohol Use: No Hx Substance Use: No Preferred Language: Bengali Communication Ability: Effective Visual Impairment: No Limitations Hearing Ability: Normal Tube Wrapper Required: No Beliefs That Will Affect Care: None marital status: Current Living Situation: Spouse Current Living Situation Comment: Spouse and grandchild current occupational status: disabled How many Children do You have: 3 Other Information That Helps Us Care for You: No Feels Safe at Home: Yes Safety Concerns: Feels Safe At This Time Diet: regular caffeine: Yes (12 cups per day) during the past year weight has: remained stable Dental Care, Regularly: No Physical Activity Frequency: Does not Exercise Assistive Devices: Cane and CPAP Physical Exam Vital Signs Vital Signs - 24 hr 09/08/22 10:32 09/08/22 11:36 09/08/22 12:38 Temperature 36.9 C Temperature Source Temporal Artery Scan Pulse Rate 78 57 L Pulse Rate from SpO2 Sensor Respiratory Rate 18 Respiratory Effort / Characteristics Non-Labored Spontaneous Respiratory Depth Normal Respiratory Pattern Regular Blood Pressure 134/66 Blood Pressure Mean 88 Pulse Oximetry 98 98 Oxygen Delivery Method Room Air Room Air Sepsis Recent Fever Within 48 Hours No Sepsis New/Unexplained Change in Mental Status No Sepsis Action Taken by Nursing No Action Required 09/08/22 12:34 09/08/22 13:00 09/08/22 13:00 Temperature Temperature Source Pulse Rate 63 58 L Pulse Rate from SpO2 Sensor 59 L 60 Respiratory Rate 22 18 Respiratory Effort / Characteristics Respiratory Depth Respiratory Pattern Blood Pressure 144/81 H Blood Pressure Mean 102 Pulse Oximetry 96 97 Oxygen Delivery Method Room Air Sepsis Recent Fever Within 48 Hours Sepsis New/Unexplained Change in Mental Status Sepsis Action Taken by Nursing 09/08/22 14:17 09/08/22 14:18 09/08/22 14:18 Temperature Temperature Source Pulse Rate 59 L 58 L Pulse Rate from SpO2 Sensor 60 59 L Respiratory Rate 17 12 Respiratory Effort / Characteristics Respiratory Depth Respiratory Pattern Blood Pressure 142/81 H Blood Pressure Mean 101 Pulse Oximetry 97 93 Oxygen Delivery Method Sepsis Recent Fever Within 48 Hours Sepsis New/Unexplained Change in Mental Status Sepsis Action Taken by Nursing 09/08/22 14:30 09/08/22 14:30 09/08/22 15:00 Temperature Temperature Source Pulse Rate 59 L 53 L Pulse Rate from SpO2 Sensor 60 53 L Respiratory Rate 20 14 Respiratory Effort / Characteristics Respiratory Depth Respiratory Pattern Blood Pressure 156/85 H Blood Pressure Mean 108 Pulse Oximetry 97 98 Oxygen Delivery Method Room Air Sepsis Recent Fever Within 48 Hours Sepsis New/Unexplained Change in Mental Status Sepsis Action Taken by Nursing 09/08/22 15:14 09/08/22 15:14 Temperature Temperature Source Pulse Rate 52 L Pulse Rate from SpO2 Sensor 54 L Respiratory Rate 18 Respiratory Effort / Characteristics Respiratory Depth Respiratory Pattern Blood Pressure 144/79 H Blood Pressure Mean 100 Pulse Oximetry 98 Oxygen Delivery Method Sepsis Recent Fever Within 48 Hours Sepsis New/Unexplained Change in Mental Status Sepsis Action Taken by Nursing VITALS: Vitals are noted on the nurse's note and reviewed by myself. GENERAL: This is a 62-year-old male, in no acute distress, chronically unwell appearing. SKIN: The skin was without rashes. EARS: Small amount of cerumen in the external auditory canals, tympanic membranes pearly marroquin without erythema or effusion bilaterally. EYES: Pupils equal round and reactive to light and accommodation. NECK: Supple without nuchal rigidity. Cervical spine is nontender. HEART: Regular rate and rhythm without murmurs gallops or rubs. LUNGS: Clear to auscultation bilaterally without wheezes, rales or rhonchi. MUSCULOSKELETAL: Strength in upper extremities appear symmetric, left leg slightly weaker compared to right on exam. NEURO: Patient was alert and oriented to person place and time. No focal brenton rological deficits. Course Consultations Consultation #1: Dr. Angelita Siu [facility] oncology Spoke with Dr. Goldstein, patient's primary oncologist via [employer]. He recommends MRI of the brain. Time: 12:16 Administered Medications Atorvastatin Calcium (Atorvastatin 40 Mg Tab) 40 mg PO QPM ZABRINA Stop: 10/08/22 20:59 Last Admin: 09/08/22 20:30 Dose: 40 mg Documented By: EMY Dexamethasone (Dexamethasone 4 Mg Tab) 8 mg PO Q8H ZABRINA Stop: 10/08/22 17:59 Last Admin: 09/08/22 18:19 Dose: 8 mg Documented By: ILEANA Gabapentin (Gabapentin 600 Mg Tab) 600 mg PO TID ZABRINA Stop: 10/08/22 17:44 Last Admin: 09/08/22 20:30 Dose: 600 mg Documented By: Admin: 09/08/22 18:19 Dose: 600 mg Documented By: ILEANA Guaifenesin (Guaifenesin 600 Mg Tabcr) 600 mg PO Q12 ZABRINA Stop: 10/08/22 20:59 Last Admin: 09/08/22 20:30 Dose: 600 mg Documented By: EMY Discontinued Medications Dexamethasone Sodium Phosphate (DexamethasonePf 10 Mg/Ml Vial) 10 mg IV NOW ONE Stop: 09/08/22 14:34 Last Admin: 09/08/22 15:02 Dose: 10 mg Documented By: ZOILA Gadobutrol (Gadobutrol 65ml Vial) 9 ml IV ONCE ONE Stop: 09/08/22 13:52 Last Admin: 09/08/22 13:52 Dose: 9 ml Documented By: LLOYD Nicotine (Nicotine 21 Mg/24 Hr Tdsy) 21 mg TD NOW STA Stop: 09/08/22 14:47 Last Admin: 09/08/22 15:04 Dose: 21 mg Documented By: ZOILA Medical Decision Making Differential Diagnosis Infection, dehydration, metabolic abnormality, hypo/hyperglycemia, electrolyte disturbance, anemia, hypoxia, cardiac sources, intracerebral event, toxicologic, neurologic, as well as other pathologies. Home Medications was personally reviewed by me Laboratory Data Attestation: I reviewed the patient's lab results. 09/08/22 11:50 09/08/22 11:50 Lab Results 0809/08/22 09/08/22 Range/Units 11:50 11:50 11:50 WBC 6.48 (4.8-10.8) K/ul RBC 3.56 L (4.70-6.10) M/uL Hgb 12.4 L (14.0-18.0) g/dl Hct 36.4 L (42.0-52.0) % MCV 102.2 H (80.0-100.0) fL MCH 34.8 H (25.0-34.0) pg MCHC 34.1 (32.0-36.0) g/dL RDW Std Deviation 55.8 H (36.4-46.3) fL RDW Coeff of Gregorio 14.8 H (11.5-14.5) % Plt Count 127 L (130-400) K/uL MPV 9.8 (9.4-12.4) fL Immature Gran % (Auto) 0.5 % Neut % (Auto) 64.7 % Lymph % (Auto) 10.0 % Clarke % (Auto) 21.8 % Eos % (Auto) 2.2 % Baso % (Auto) 0.8 % Neut # (Auto) 4.20 (1.40-6.50) K/uL Lymph # (Auto) 0.65 L (1.2-3.4) K/uL Clarke # (Auto) 1.41 H (0.11-0.59) K/uL Eos # (Auto) 0.14 (0-0.50) K/uL Baso # (Auto) 0.05 (0-0.2) K/uL Immature Gran # (Auto) 0.03 (0.01-0.20) K/uL Sodium 141 (136-145) mmol/L Potassium 3.5 (3.5-5.1) mmol/L Chloride 108 H (98-107) mmol/L Carbon Dioxide 31 (21-32) mmol/L Anion Gap 2 L (3-11) BUN 14 (6-23) mg/dl Creatinine 1.19 (0.6-1.4) mg/dl Est Cr Clr Drug Dosing Not Reportable Est GFR ( Amer) 75.4 ml/min Est GFR (Non-Af Amer) 65.1 ml/min BUN/Creatinine Ratio 11.8 (10-20) Glucose 74 (70-99(Fasting)) mg/dl Calcium 9.9 (8.6-10.3) mg/dl Magnesium 2.2 (1.7-2.4) mg/dl Total Bilirubin 0.5 (0.2-1.0) mg/dl AST 13 (13-39) U/L ALT 15 (7-52) U/L Alkaline Phosphatase 95 (34-104) U/L Total Protein 7.2 (6.0-8.3) gm/dl Albumin 4.1 (3.4-5.0) gm/dl Globulin 3.1 (2.5-4.0) gm/dl Albumin/Globulin Ratio 1.3 (0.9-2) Urine Color Yellow Urine Appearance Clear (Clear) Urine pH 6.5 (4.5-7.5) Ur Specific [place] 1.007 (1.000-1.030) Urine Protein Trace H (Negative) Urine Glucose (UA) Negative (Negative) Urine Ketones Negative (Negative) Urine Blood Negative (Negative) Urine Nitrite Negative (Negative) Urine Bilirubin Negative (Negative) Urine Urobilinogen Negative (Negative) Ur Leukocyte Esterase Negative (Negative) Urine WBC (Auto) 1-5 (0-5) /hpf Urine RBC (Auto) 0-4 (0-4) /hpf U Hyaline Cast (Auto) 1-5 (0-5) /lpf U Epithel Cells (Auto) 5-10 H (0-5) /lpf Urine Bacteria (Auto) Negative (Negative) Imaging Data Attestation: I personally reviewed and interpreted this imaging study as follows: Radiologist's Impression: Brain MRI 09/08/22 11:35 MRI OF THE BRAIN COMBO CLINICAL HISTORY: Headache. Lung cancer with intracranial metastatic disease. COMPARISON STUDY: Previous MRI examinations of the brain, most recently dated 02/17/2022. TECHNIQUE: MRI of the brain was performed utilizing various T1 and T2-weighted sequences in the axial, sagittal, and coronal planes. Contrast-enhanced sequences were acquired following the administration of 9 cc of Gadavist. The examination is degraded by motion artifact. FINDINGS: Brain parenchyma: There is age-related involutional change and microangiopathic disease. Extensive T2 signal abnormality throughout the white matter likely re presents post radiation change. There is overall marked progression of multifocal intracranial metastatic disease is compared to 02/17/2022 with approximately 20 lesions identified. There is significant edema around these lesions. A financial services representative lesion in the left cerebellar hemisphere on axial high resolution postcontrast image #19 measures 2.3 cm. There are at least 3 lesions in the bell which measure up to 1.6 cm. A lesion in the high right frontal lobe in image #105 measures 2.2 cm, and a right occipital lesion on image #79 measures 2.3 cm. Several of these lesions show internal hemosiderin deposition and faint T1 hyperintensity suggesting blood products. There is no hemorrhage or midline shift. There is no restricted diffusion typical for acute ischemia. No extra-axial fluid collection is seen. The cerebellar tonsils are normal in configuration. Ventricles, sulci, and cisterns: Prominent secondary to involutional change. There is no evidence of obstructive hydrocephalus. Ventricular caliber is similar to previous. Pituitary and sella: Unremarkable. Intracranial vasculature: Normal flow voids are maintained at the skull base. Orbits: The bony orbits are grossly intact. Orbital contents are normal in appearance. Sinuses and mastoids: The paranasal sinuses are clear. There are large mastoid effusions. Calvarium: Unremarkable. Cervical cord: Partially visualized cervical spinal cord is normal in morphology and signal intensity. IMPRESSION: 1. Overall marked progression of multifocal intracranial metastatic disease as compared to 02/17/2022 with approximately 20 lesions identified. 2. These lesions show significant surrounding edema, greatest involving the bell and the right aspect of the cerebellum. 3. There is hemosiderin deposition and faint T1 hyperintensity within several of these lesions suggesting blood products/hemorrhagic metastases. 4. There is no midline shift, evidence of acute ischemia, or evidence of obstructive hydrocephalus. 5. Diffuse white matter abnormality is likely related to previous radiation treatment. 6. Large mass effusions. ACT 112: Negative or not required by law. Electronically signed by: Paul Reynoso M.D. 09/08/2022 2:20 PM MDM Narrative This patient is a 62-year-old male who presents to the emergency department for evaluation of headaches and new neurological symptoms. Patient has history of small cell lung cancer with brain metastasis and metastasis to the adrenal gland. MRI of the brain was performed and unfortunately does show significant progression of metastatic disease with some vasogenic edema and possible hemorrhagic metastasis. Patient medicated with 10 mg IV Decadron in the emergency department. I did speak with his primary oncologist, Dr. Goldstein who agrees with admission for IV steroids and evaluation by radiation oncology/p alliative care. [facility] agreed to evaluate the patient for further care. Impression Lung cancer metastatic to brain, Headache, Bilateral leg weakness Discharge Plan Visit Data Chief Complaint: Headache Stated Complaint: DOC REF,HEADACHES,CANT WALK,WANTS MRI,WEAKNESS ED Provider: Twan Gordillo ED Midlevel Provider: Bev Ann Discharge Problem: Lung cancer metastatic to brain, Headache, Bilateral leg weakness Patient Disposition: Admitted As Inpatient Discharge Instructions Interventions: ED Discharge Assessment Last Done: 09/08/22 16:42
[2022-09-08 12:09] LABS: Basophils # (auto) 0.05 K/uL (0-0.2); Basophils % (auto) 0.8 %; Eosinophils # (auto) 0.14 K/uL (0-0.50); Eosinophils % (auto) 2.2 %; Hematocrit (blood only) 36.4 % (42.0-52.0); Hemoglobin 12.4 g/dl (14.0-18.0); Immature Granulocytes # (auto) 0.03 K/uL (0.01-0.20); Immature Granulocytes % (auto) 0.5 %; Lymphocytes # (auto) 0.65 K/uL (1.2-3.4); Mean Corpuscular Hemoglobin 34.8 pg (25.0-34.0); Mean Corpuscular Hgb Conc 34.1 g/dL (32.0-36.0); Mean Corpuscular Volume 102.2 fL (80.0-100.0); Mean Platelet Volume 9.8 fL (9.4-12.4); Monocytes # (auto) 1.41 K/uL (0.11-0.59); Monocytes % (auto) 21.8 %; Neutrophils % (auto) 64.7 %; Platelet Count 127 K/uL (130-400); RDW Coefficient of Variation 14.8 % (11.5-14.5); RDW Standard Deviation 55.8 fL (36.4-46.3); Red Blood Count 3.56 M/uL (4.70-6.10); White Blood Count 6.48 K/ul (4.8-10.8)
[2022-09-08 12:23] LABS: Alanine Aminotransferase 15 U/L (7-52); Albumin Globulin Ratio 1.3 (0.9-2); Albumin Level 4.1 gm/dl (3.4-5.0); Alkaline Phosphatase 95 U/L (34-104); Anion Gap 2 (3-11); Aspartate Aminotransferase 13 U/L (13-39); BUN Creatinine Ratio 11.8 (10-20); Bilirubin,Total 0.5 mg/dl (0.2-1.0); Blood Urea Nitrogen 14 mg/dl (6-23); Calcium 9.9 mg/dl (8.6-10.3); Carbon Dioxide 31 mmol/L (21-32); Chloride 108 mmol/L (98-107); Est GFR (African American) 75.4 ml/min; Est GFR (Non-African American) 65.1 ml/min; Globulin 3.1 gm/dl (2.5-4.0); Glucose 74 mg/dl (70-99(Fasting)); Magnesium 2.2 mg/dl (1.7-2.4); Potassium 3.5 mmol/L (3.5-5.1); Sodium 141 mmol/L (136-145); Total Protein 7.2 gm/dl (6.0-8.3)
[2022-09-08 12:28] LABS: Appearance Urine Clear (Clear); Bacteria Urine Automated Negative (Negative); Bilirubin Urine Negative (Negative); Blood Urine Negative (Negative); Color Urine Yellow; Glucose Urine UA Negative (Negative); Ketones Urine Negative (Negative); Leukocyte Esterase Urine Negative (Negative); Nitrite Urine Negative (Negative); Protein Urine Trace (Negative); RBC Urine Automated 0-4 /hpf (0-4); Specific Gravity Urine 1.007 (1.000-1.030); Urobilinogen Urine Negative (Negative); pH Urine 6.5 (4.5-7.5)
[2022-09-08] MEDS ORDERED: GADOBUTROL 65ML VIAL IV ONE (13:51)
--- NOTE | 2022-09-08 14:22 | Magnetic Resonance Report ---
MRI OF THE BRAIN COMBO CLINICAL HISTORY: Headache. Lung cancer with intracranial metastatic disease. COMPARISON STUDY: Previous MRI examinations of the brain, most recently dated 02/17/2022. TECHNIQUE: MRI of the brain was performed utilizing various T1 and T2-weighted sequences in the axial , sagittal, and coronal planes. Contrast-enhanced sequences were acquired following the administratio n of 9 cc of Gadavist. The examination is degraded by motion artifact. FINDINGS: Brain parenchyma: There is age-related involutional change and microangiopathic disease. Extensive T2 signal abnormality throughout the white matter likely represents post radiation change. There is ove rall marked progression of multifocal intracranial metastatic disease is compared to 02/17/2022 with a pproximately 20 lesions identified. There is significant edema around these lesions. A patient financial representative lesion in the left cerebellar hemisphere on axial high resolution postcontrast image #19 measures 2. 3 cm. There are at least 3 lesions in the bell which measure up to 1.6 cm. A lesion in the high right frontal lobe in image #105 measures 2.2 cm, and a right occipital lesion on image #79 measures 2.3 c m. Several of these lesions show internal hemosiderin deposition and faint T1 hyperintensity suggesti ng blood products. There is no hemorrhage or midline shift. There is no restricted diffusion typical for acute ischemia. No extra-axial fluid collection is seen. The cerebellar tonsils are normal in co nfiguration. Ventricles, sulci, and cisterns: Prominent secondary to involutional change. There is no evidence of obstructive hydrocephalus. Ventricular caliber is similar to previous. Pituitary and sella: Unremarkable. Intracranial vasculature: Normal flow voids are maintained at the skull base. Orbits: The bony orbits are grossly intact. Orbital contents are normal in appearance. Sinuses and mastoids: The paranasal sinuses are clear. There are large mastoid effusions. Calvarium: Unremarkable. Cervical cord: Partially visualized cervical spinal cord is normal in morphology and signal intensity . IMPRESSION: 1. Overall marked progression of multifocal intracranial metastatic disease as compared to 02/17/2022 with approximately 20 lesions identified. 2. These lesions show significant surrounding edema, greatest involving the bell and the right aspect of the cerebellum. 3. There is hemosiderin deposition and faint T1 hyperintensity within several of these lesions sugges ting blood products/hemorrhagic metastases. 4. There is no midline shift, evidence of acute ischemia, or evidence of obstructive hydrocephalus. 5. Diffuse white matter abnormality is likely related to previous radiation treatment. 6. Large mass effusions. ACT 112: Negative or not required by law. Electronically signed by: Paul Reynoso M.D. 09/08/2022 2:20 PM
[2022-09-08] MEDS ORDERED: dexAMETHasone**PF** 10 MG/ML VIAL IV ONE (14:33)
[2022-09-08] MEDS ORDERED: NICOTINE 21 MG/24 HR TDSY TD STA (14:46)
--- NOTE | 2022-09-08 15:26 | History & Physical Report ---
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 Patient has underwent various bouts of chemotherapy with etoposide and carboplatin, acetazolamide and radiation treatments to both the brain and left adrenal mass. Most recently he had a PET scan completed on 09/06/2022 showing an enlarging adrenal mass now measures 4.9 x 3.6 cm. - MRI brain today reviewed personally, completed due to progressive weakness, imbalance, and inability to walk. He previously had MRI brain done on 02/17/22 and had 10 lesions seen there as evidence of multifocal intracranial metastatic disease. Largest lesion on the left cerebellar hemisphere. There was mild edema and no hemorrhage at that point. Today there is worsening progression with over 20 lesions, significant edema involving the bell and the right aspect of the cerebellum. There is hemosiderin deposition and faint T1 hyperintensity within several of these lesions suggesting blood products/hemorrhagic metastases. There is no midline shift, evidence of acute ischemia, or evidence of obstructive hydrocephalus. Diffuse white matter abnormality is likely related to previous radiation treatment. Large mass effusions. - Cerebellar involvement will likely affect his balance and cause worsened ability to walk, he is able to move his legs, no signs of cauda equina syndrome - Follows with oncology with Dr. Goldstein- recommends Dexamethasone po 8 mg Q8H while he is here - started in the Er - Consult radiation onc here for palliative tx - Has seen Melina Navarro and Dr. Miller previously for xrt - Consult palliative medicine - Discussion held with pt and at bedside and he is agreeable to staying overnight as prior was adamant about leaving earlier. Pt is interested in discussion with palliative care and possible transition to hospice so "I don't have to come back and stay in the hospital". He is interested in symptom management versus more workup and pursuing treatment. Pt reports he is DNR/DNI. (4) Bradycardia: Plan: - Pulse in 50s since arrival, does not appear this has occurred before. Pt is on atenolol 25 mg daily at home, may require some adjustments prior to discharge. Will hold at this time, may be able to resume with am meds. Pt asymptomatic currently, reports some intermittent dizziness at home and was utilizing meclizine previously, no use recently - Hgb is stable - Checking an EKG stat - Bp of 156/85 (5) CKD (chronic kidney disease), stage III: Plan: - Chronic, stable with Cr. 1.19 today which is his baseline (6) Tobacco use: Plan: - Chronic use, He has smoked 2 packs/day for 50+ years - Nicotine patch ordered, encouraged smoking cessation at bedside DVT ppx: teds, scds no chemical ppx in the setting of hemorrhagic brain lesions CODE: DNR/DNI Dispo: From home, likely to remain in the hospital x 1-2 days A total of 80 minutes were spent with greater than 50% of that time face to face with the patient, personally reviewing all current laboratories, imaging studies, past medication reconciliation, outpatient chart review, and discussion with specialists to collaborate care for the patient with attending. Please see attending documentation for corrections and/or additions. 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 He has smoked 2 packs/day for 50+ years. Patient has underwent various bouts of chemotherapy with etoposide and carboplatin, acetazolamide and radiation treatments to both the brain and left adrenal mass. Most recently he had a PET scan completed on 09/06/2022 showing an enlarging adrenal mass. He has had ongoing issues with intermittent nausea, low back pain, upper abdomen pain. Routinely he follows with oncology with Dr. Goldstein. Patient also following with radiation oncology and most recently he was referred to radiation oncology for palliative treatment. Today the patient presents to the hospital with his due to increased imbalance, difficulty walking, fatigue, generalized malaise over the past week and a half. He has been eating and drinking well, but has to take zofran and compazine intermittently for nausea. Pt is still smoking upwards of 2 ppd, and therefore hardly uses the inhalers. Pt denies any respiratory complaints, cardiac complaints, fever, chills or sweats today. At the beginning of our visit, adamantly states that he does not want to stay in the hospital. He is agreeable after conversation about having radiation oncology schedule palliative radiation, as well as palliative care to help get him set up and home, and discuss options for hospice. He and his are raising a grandchild who is 6 years old and he wants to be able to spend time with him. Allergies Allergy/AdvReac Type Severity Reaction Status Date / Time fluticasone Allergy Severe throat and Verified 09/08/22 16:05 tongue swelling lisinopril Allergy Severe THROAT & Verified 09/08/22 16:05 TONGUE SWELLED salmeterol Allergy Intermediate throat and Verified 09/08/22 16:05 tongue swelling morphine AdvReac Severe Migraine Verified 09/08/22 16:05 Home Medications Medication Instructions Recorded Confirmed Type finasteride 5 mg tablet 5 mg PO DAILY #30 tabs 05/13/20 09/08/22 Rx acetaminophen 500 mg tablet 500 mg PO Q6H PRN Pain 08/20/20 09/08/22 History atorvastatin 40 mg tablet 40 mg PO QPM 08/20/20 09/08/22 History ondansetron HCl 8 mg tablet 8 mg PO Q8H PRN Nausea 09/14/20 09/08/22 History prochlorperazine maleate 10 mg 10 mg PO Q6H PRN Nausea 09/14/20 09/08/22 History tablet (Compazine) gabapentin 600 mg tablet 600 mg PO TID 10/13/20 09/08/22 History potassium chloride 20 mEq 20 meq PO TID 11/03/20 09/08/22 History tablet,extended release guaifenesin 600 mg tablet, 600 mg PO Q12 #10 tabs 12/01/21 09/08/22 Rx extended release 12 hr (Mucinex) meclizine 25 mg tablet 25 mg PO TID PRN Dizziness 06/09/22 09/08/22 History metoprolol succinate 50 mg 25 mg PO DAILY 06/09/22 09/08/22 History tablet,extended release 24 hr omeprazole 20 mg capsule,delayed 20 mg PO DAILY 06/09/22 09/08/22 History release pseudoephedrine HCl 120 mg 120 mg PO Q12H 06/09/22 09/08/22 History tablet,extended release fluticasone fur. 200 mcg-umeclid 1 inh inhalation DAILY 07/15/22 09/08/22 History 62.5 mcg-vilant 25 mcg inhalat.powder (Trelegy Ellipta) famotidine 10 mg tablet (Pepcid AC) 10 mg PO BID PRN Heartburn 09/08/22 09/08/22 History Past Med/Surg History Medical History (Updated 09/08/22 @ 16:16 by Tg Peña PA-C) Arthritis Asthma BPH (benign prostatic hyperplasia) Cholelithiases Chronic back pain CKD (chronic kidney disease), stage III COPD (chronic obstructive pulmonary disease) Depression Dyslipidemia Erectile dysfunction Essential hypertension GERD (gastroesophageal reflux disease) controlled Hematuria History of nicotine dependence History of renal calculi Hyperlipidemia Hyperparathyroidism Kidney stone on left side Lumbar spinal stenosis Obesity Osteoarthritis of shoulders, bilateral PSVT (paroxysmal supraventricular tachycardia) Pulmonary emphysema Sciatica Sleep apnea CPAP HS + 1L O2 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 Tobacco use Type 2 diabetes mellitus NIDDM Umbilical hernia Vitamin D deficiency Surgical History Fusion of spine LUMBAR X 2 H/O parathyroidectomy History of arthroscopy LEFT KNEE History of bronchoscopy (07/23/20) Fine Needle Aspiration History of colonoscopy (11/19/12) History of colonoscopy (07/12/17) History of cystoscopy Left ureteroscopy, basket stone, cystoscopy, left stent exchange: 11/09/16: LMA#5 atraumatic History of neck surgery NERVE BLOCK FOR HEADACHES Repair of umbilical hernia (07/28/10) S/P laminectomy S/P parathyroidectomy S/P umbilical hernia repair, follow-up exam Status post cholecystectomy Status post lumbar spinal fusion Family History Father , Passed Age 73 Heart disease Hypertension Mother , Passed Age 57 Heart disease Hypertension Lung disease Sister Breast cancer Sister No problems noted. Uncle Throat cancer Aunt Bone cancer Sister , Passed Age 40 due to Lung Cancer Lung cancer Brother No problems noted. Son No problems noted. Son No problems noted. Son No problems noted. Social History Smoking Status: Current every day smoker Tobacco Type: Cigarettes packs per day: 2; Cigarettes Per Day: 35; Second Hand Exposure: No; Do You Dip or Chew Tobacco: No; Tobacco Cessation Education Requested by Patient: No Hx Alcohol Use: No Hx Substance Use: No Preferred Language: Irish Communication Ability: Effective Visual Impairment: No Limitations Hearing Ability: Normal Ventilating Equipment Installer Required: No Beliefs That Will Affect Care: None marital status: Current Living Situation: Spouse Current Living Situation Comment: Spouse and grandchild current occupational status: disabled How many Children do You have: 3 Other Information That Helps Us Care for You: No Feels Safe at Home: Yes Safety Concerns: Feels Safe At This Time Diet: regular caffeine: Yes (12 cups per day) during the past year weight has: remained stable Dental Care, Regularly: No Physical Activity Frequency: Does not Exercise Assistive Devices: Cane and CPAP Review of Systems Review of Systems: Constitutional: No fever, sweats or chills Eyes: No diplopia, no worsening or blurred vision ENT: normal hearing, no trouble swallowing Respiratory: + chronic cough, no sputum, dyspnea at rest or on exertion Cardiovascular: No chest pain, tightness or palpitations Abdomen: No pain, nausea, vomiting, diarrhea or constipation Musculoskeletal: No joint pain, calf pain, swelling Neurologic: + generalized weakness, + balance problems, near inability to walk in the past 1.5 wks Psychiatric: No anxiety or depression Skin: No rash or itch Physical Exam Physical Exam: General: awake, alert, no apparent distress Head: Normocephalic, atraumatic ENT: PERRL, EOMI, no pharyngeal exudate, mucous membranes moist Chest: Faint crackles and expiratory wheeze, on room air, no adventitious breath sounds Cardiac: Bradycardic with HR 58, few PVCs, no murmur, no JVD, normal peripheral pulses, good capillary refill Abdominal: NABS x 4 quadrants, soft, nondistended, nontender to palpation, no rebound or guarding Extremities: Normal inspection, no peripheral edema or erythema, calfs nontender to palpation Psych: Normal mood and affect Neuro: AAO x 3, strength intact bilaterally and rated 4/5 in upper and lower extremities, gait no assessed, no motor deficits, pt can move all extremities, speech is clear, no peripheral sensory deficits Results & Data Results & Data Vital Signs (Past 12 Hours) Vital Signs Temp Pulse Resp BP Pulse Ox O2 Del Method 09/08/22 15:00 53 L 14 98 Room Air 09/08/22 14:30 59 L 20 97 09/08/22 14:30 156/85 H 09/08/22 14:18 58 L 12 93 09/08/22 14:18 142/81 H 09/08/22 14:17 59 L 17 97 09/08/22 13:00 58 L 18 97 09/08/22 13:00 144/81 H 09/08/22 12:34 63 22 96 Room Air 09/08/22 12:38 57 L 09/08/22 11:36 98 Room Air 09/08/22 10:32 36.9 C 78 18 134/66 98 Room Air Laboratory Results 09/08/22 09/08/22 09/08/22 11:50 11:50 11:50 WBC 6.48 RBC 3.56 L Hgb 12.4 L Hct 36.4 L MCV 102.2 H MCH 34.8 H MCHC 34.1 RDW Std Deviation 55.8 H RDW Coeff of Gregorio 14.8 H Plt Count 127 L MPV 9.8 Immature Gran % (Auto) 0.5 Neut % (Auto) 64.7 Lymph % (Auto) 10.0 Cavalier % (Auto) 21.8 Eos % (Auto) 2.2 Baso % (Auto) 0.8 Neut # (Auto) 4.20 Lymph # (Auto) 0.65 L Cavalier # (Auto) 1.41 H Eos # (Auto) 0.14 Baso # (Auto) 0.05 Immature Gran # (Auto) 0.03 Sodium 141 Potassium 3.5 Chloride 108 H Carbon Dioxide 31 Anion Gap 2 L BUN 14 Creatinine 1.19 Est Cr Clr Drug Dosing Not Reportable Est GFR ( Amer) 75.4 Est GFR (Non-Af Amer) 65.1 BUN/Creatinine Ratio 11.8 Glucose 74 Calcium 9.9 Magnesium 2.2 Total Bilirubin 0.5 AST 13 ALT 15 Alkaline Phosphatase 95 Total Protein 7.2 Albumin 4.1 Globulin 3.1 Albumin/Globulin Ratio 1.3 Urine Color Yellow Urine Appearance Clear Urine pH 6.5 Ur Specific [place] 1.007 Urine Protein Trace H Urine Glucose (UA) Negative Urine Ketones Negative Urine Blood Negative Urine Nitrite Negative Urine Bilirubin Negative Urine Urobilinogen Negative Ur Leukocyte Esterase Negative Urine WBC (Auto) 1-5 Urine RBC (Auto) 0-4 U Hyaline Cast (Auto) 1-5 U Epithel Cells (Auto) 5-10 H Urine Bacteria (Auto) Negative Diagnostic Findings Brain MRI 09/08/22 11:35 MRI OF THE BRAIN COMBO CLINICAL HISTORY: Headache. Lung cancer with intracranial metastatic disease. COMPARISON STUDY: Previous MRI examinations of the brain, most recently dated 02/17/2022. TECHNIQUE: MRI of the brain was performed utilizing various T1 and T2-weighted sequences in the axial, sagittal, and coronal planes. Contrast-enhanced sequences were acquired following the administration of 9 cc of Gadavist. The examination is degraded by motion artifact. FINDINGS: Brain parenchyma: There is age-related involutional change and microangiopathic disease. Extensive T2 signal abnormality throughout the white matter likely represents post radiation change. There is overall marked progression of multifocal intracranial metastatic disease is compared to 02/17/2022 with approximately 20 lesions identified. There is significant edema around these lesions. A junior sales representative lesion in the left cerebellar hemisphere on axial high resolution postcontrast image #19 measures 2.3 cm. There are at least 3 lesions in the bell which measure up to 1.6 cm. A lesion in the high right frontal lobe in image #105 measures 2.2 cm, and a right occipital lesion on image #79 measures 2.3 cm. Several of these lesions show internal hemosiderin deposition and faint T1 hyperintensity suggesting blood products. There is no hemorrhage or midline shift. There is no restricted diffusion typical for acute ischemia. No extra-axial fluid collection is seen. The cerebellar tonsils are normal in configuration. Ventricles, sulci, and cisterns: Prominent secondary to involutional change. There is no evidence of obstructive hydrocephalus. Ventricular caliber is similar to previous. Pituitary and sella: Unremarkable. Intracranial vasculature: Normal flow voids are maintained at the skull base. Orbits: The bony orbits are grossly intact. Orbital contents are normal in appearance. Sinuses and mastoids: The paranasal sinuses are clear. There are large mastoid effusions. Calvarium: Unremarkable. Cervical cord: Partially visualized cervical spinal cord is normal in morphology and signal intensity. IMPRESSION: 1. Overall marked progression of multifocal intracranial metastatic disease as compared to 02/17/2022 with approximately 20 lesions identified. 2. These lesions show significant surrounding edema, greatest involving the bell and the right aspect of the cerebellum. 3. There is hemosiderin deposition and faint T1 hyperintensity within several of these lesions suggesting blood products/hemorrhagic metastases. 4. There is no midline shift, evidence of acute ischemia, or evidence of obstructive hydrocephalus. 5. Diffuse white matter abnormality is likely related to previous radiation treatment. 6. Large mass effusions. ACT 112: Negative or not required by law. Electronically signed by: Paul Reynoso M.D. 09/08/2022 2:20 PM Code Status & VTE Plan Code Status DNR/DNI - discussed with the patient at bedside Supervising Physician Co-Signing Physician Notes I have seen and examined the patient and have discussed the case with the provider above. I agree with the assessment and plan as stated. 62 yo M with stage IV cancers, now with mets to brain. He presents with ongoing headache and ambulatory dysfunction for the past few weeks. He reports lightheadedness and dizziness. He states his legs are weak L>R. He is still smoking. No changes in bowel or bladder function. On exam BP 144/77, HR 57 afebrile. CN 2-12 intact, pupils are round and equal bilaterally, tongue with a whitish substance similar to thrush, however, patient states this is normal for him. Dentures in place. Strength 5/5 throughout, DTR 2/4 bilaterally, sensation intact. Labs/imaging reviewed. Patient is interested in being home as much as possible. Agree with palliative consultation to connect him with resources outpatient. He was started on decadron and radiation oncology was consulted. He is fine with staying overnight but wants to be back home tomorrow. Denies pain and is otherwise comfortable. There was a question of bradycardia and an EKG was performed revealing sinus rhythm with sinus arrhythmia and a rate of 69. There was no block seen. Agree with holding Toprol XL at this time. DO Aime
[2022-09-08] MEDS ORDERED: ACETAMINOPHEN 325 MG TAB PO PRN (17:10)
[2022-09-08] MEDS ORDERED: ONDANSETRON INJ 2 MG/ML 2 ML VIAL IV PRN (17:10)
[2022-09-08] MEDS: GABAPENTIN 600 MG TAB PO SCH ×2 (18:19→20:30)
[2022-09-08] MEDS: dexAMETHasone 4 MG TAB PO SCH (18:19)
[2022-09-08] MEDS: guaiFENesin 600 MG TABCR PO SCH (20:30)
[2022-09-08] MEDS ORDERED: ATORVASTATIN 40 MG TAB PO SCH (21:00)
[2022-09-09] MEDS: dexAMETHasone 4 MG TAB PO SCH ×2 (02:25→09:50)
[2022-09-09 07:27] LABS: Basophils # (auto) 0.02 K/uL (0-0.2); Basophils % (auto) 0.3 %; Hematocrit (blood only) 36.1 % (42.0-52.0); Hemoglobin 12.6 g/dl (14.0-18.0); Immature Granulocytes # (auto) 0.06 K/uL (0.01-0.20); Immature Granulocytes % (auto) 0.8 %; Lymphocytes # (auto) 0.45 K/uL (1.2-3.4); Mean Corpuscular Hemoglobin 34.7 pg (25.0-34.0); Mean Corpuscular Hgb Conc 34.9 g/dL (32.0-36.0); Mean Corpuscular Volume 99.4 fL (80.0-100.0); Mean Platelet Volume 10.3 fL (9.4-12.4); Monocytes # (auto) 0.29 K/uL (0.11-0.59); Monocytes % (auto) 3.8 %; Neutrophils # (auto) 6.74 K/uL (1.40-6.50); Neutrophils % (auto) 89.1 %; Platelet Count 138 K/uL (130-400); RDW Coefficient of Variation 14.5 % (11.5-14.5); Red Blood Count 3.63 M/uL (4.70-6.10); White Blood Count 7.56 K/ul (4.8-10.8)
[2022-09-09 07:37] VITALS: BP 110/72; PULSE 77; TEMP 97.5; O2SAT 97
[2022-09-09 07:46] LABS: Albumin Globulin Ratio 1.3 (0.9-2); Albumin Level 4.2 gm/dl (3.4-5.0); BUN Creatinine Ratio 15.3 (10-20); Bilirubin,Total 0.8 mg/dl (0.2-1.0); Calcium 9.7 mg/dl (8.6-10.3); Creatinine Clr Calc Pharmacy 54.8 ml/min; Est GFR (African American) 63.6 ml/min; Est GFR (Non-African American) 54.9 ml/min; Globulin 3.3 gm/dl (2.5-4.0); Potassium 3.8 mmol/L (3.5-5.1); Total Protein 7.5 gm/dl (6.0-8.3)
[2022-09-09] MEDS: GABAPENTIN 600 MG TAB PO SCH (08:20)
[2022-09-09] MEDS: guaiFENesin 600 MG TABCR PO SCH (08:20)
--- NOTE | 2022-09-09 08:38 | Radiation OncologyConsultation ---
Date of Consultation September 09, 2022 Assessment & Plan (1) Lung cancer metastatic to brain: This is a 62-year-old gentleman with a history of metastatic small cell carcinoma of the lung. He was treated initially with 2 cycles of chemotherapy and then chemo and radiation concurrently. Radiation was stopped due to progression of disease. Chemotherapy was stopped due to low counts. He was then found to have brain metastasis. He received whole brain radiation therapy. He then had on 2 occasions SBRT to multiple brain lesions. Most recently he had a left adrenal mass that was treated. Currently is hospitalized due to progression of brain metastasis. He was started on dexamethasone. He has had marked improvement overnight. Less issues with being off balance. Our office was consulted to evaluate for possible palliative radiation therapy. Plan ATTENDING ADDENDUM Assessment: Mr. Arce is a 62-year-old gentleman who presents with extensive stage small cell lung carcinoma. The patient previously received a partial course of radiation therapy to the chest with chemotherapy (4800/6000 cGy, 24/35 fractions, 10/16/2020), whole brain radiation therapy (3000 cGy, 10 fractions, 01/19/2021), brain SBRT (3000 cGy, 5 fractions, 11/12/2021), brain SBRT (3000 cGy, 5 fractions, 03/25/2022), left adrenal gland (3000 cGy, 5 fractions, 07/15/2022). The patient has been on a chemotherapy holiday most recently. The patient was doing well until he developed neurologic symptoms and was admitted to the hospital. The patient was found to have extensive metastatic disease in the brain. The patient has been started on dexamethasone which is helped to improve his neurologic symptoms. We have been asked to evaluate the patient regarding the role of further palliative radiation therapy. Recommendation: I have recommended consideration for fractionated stereotactic radiosurgery to areas that are likely contributing to his current symptoms and may cause a problem for him him in the very near future. After completion of treatment, he can consider other further therapies including systemic therapy and/or hospice/comfort care. Plan: 1. CT simulation for treatment planning for radiation therapy. To be completed today to expedite treatment planning. Prior to patient's discharge. IV contrast. 2. Dexamethasone 4 mg p.o. every 6 hours. 3. Plan for fractionated stereotactic radiosurgery in the outpatient setting. 4. Medical oncology follow-up in the outpatient setting. 5. Patient and family encouraged to call us with any further questions or concerns. Rationale/Explanation of Treatment: I explained the indications, alternatives, benefits, risks and side effects of external beam radiation therapy. I explain the most common side effects including but not limited to skin erythema, skin break down, hair loss, radiation necrosis, fatigue, short-term memory loss, decreased neurocognitive performance, cerebral edema, hearing loss, damage to c ochlea structures, seizures, loss of sensory and or motor function. I explained the treatment planning process and what to expect before during and after treatment. I have explained to the patient that there is an increased risk of overlap from the previous course of radiation therapy and the current course of radiation therapy which can increase the risk of all acute and late side effects of radiation therapy. The patient and had multiple questions which were answered to their full satisfaction. Thank you for allowing us to participate in the care of this patient. This chart was completed in part utilizing [employer] Speech Voice Recognition software. Attempts were made to minimize the grammatical errors, random word insertions, pronoun errors and incomplete sentences. Any formal questions or concerns about the content, text or information contained within the body of this dictation should be directly addressed to the provider for clarification. Catalina Miller MD Department of Radiation Oncology [facility] History of Present Illness Reason for Consultation: Brain metastasis with progression Requesting Physician: Dr. Landaverde Attending Physician: Leslie Landaverde MD History of Present Illness 06/10/2020. Patient switched care from previous department specialist to Dr. Goldstein. Dr. Goldstein recommended CT of Chest. 07/02/2020. CT of chest. IMPRESSION: 1. Left upper lobe lobulated lung mass. Prevascular and AP window adenopathy/mass.Highly suspicious nodule(s). Consider non-emergent PET/CT, or tissue sampling.(Reference: Ashlie) 2. Left adrenal nodule measuring 14 mm. This could also be evaluated with PET-CT. 3. Probable left renal cysts. Recommend correlation with renal ultrasound. 07/15/2020. PET/CT. IMPRESSION: 1. Emphysema and old granulomatous disease in the thorax.1.7 (CC) x 1.4 (AP) x 1.6 (TV) cm partially calcified metabolically- active nodule within the apicoposterior left upper lobe, primary lung malignancy versus granulomatous disease. Further evaluation can be obtained with CT-guided biopsy. 2. Metabolically-active partially calcified lymphadenopathy within the left hilum, AP window and prevascular region (centrally necrotic), lymph node metastases versus granulomatous disease. Further evaluation can be obtained with bronchoscopy and biopsy. 07/23/2020. Bronchoscopy with EBUS FNA by Dr. Rory Goldstein. Biopsies of 4L, 11L were positive for small cell lung carcinoma. 08/13/2020. Medical oncology consultation with Dr. Goldstein. Recommendation is for concurrent carboplatin/etoposide with radiation therapy. 10/16/2020. Radiation stopped due to progression of disease. He received 4800 cGy. 24 fractions completed of a planned 35. 11/16/2020. Chest CT. Improvement of left lower lobe nodule and left hilar lymphadenopathy. Near complete resolution of previously identified consolidative opacities within the lung bases. 12/29/2020. Brain MRI. This was obtained prior to treating with prophylactic cranial radiation. This unfortunately revealed interval development of multiple scattered subcentimeter enhancing nodules seen within the brain consistent with intracranial metastatic disease. Patient therefore went on to have palliative radiation therapy to the brain. 01/19/2021. Status post completion of radiation of whole brain palliative radiation therapy. He received 3000 cGy. 01/25/2021. PET/CT. Positive response to therapy with near resolution of the FDG avid mass in the AP window/suprahilar margin on the left as well as the left upper lobe FDG avid nodule. Residual activity secondary to minimal residual neoplasm or inflammation from radiation. 05/05/2021. PET/CT. Interval development of metabolically active bilateral adrenal metastasis. 1.7 cm on the right and 3.9 cm on the left. Decrease in size of 0.6 cm apicoposterior left upper lobe lesion. Decrease in metabolic activity of calcified mediastinal lymph node. No pelvis metastasis. No osseous metastasis. 05/31/2021. Restart of systemic treatment with etoposide, carboplatin and Tecentriq. 07/06/2021. Brain MRI. No evidence of intracranial metastasis. 09/21/2021. PET/CT. Posttreatment changes of the left hilum. No focal activity of recurrence. Similar size but increased activity and a hypermetabolic left adrenal metastasis. 10/08/2021. MRI of the brain. 4 new enhancing subcentimeter lesions within the brain. Consistent with progression of intracranial metastatic disease. 11/12/2021. Status post completion of radiation therapy with SBRT. 4 lesions treated in 3 separate areas.. He received 3000 cGy 11/19/2021. Initiation of Lurbinectedi. 02/08/2022. PET/CT. Posttreatment change of the left hilum and mild metabolic activity slightly above the blood pool. There is no focal metabolic activity to suggest local recurrence. Interval increase in size but slightly decreased in activity FDG avid left adrenal metastasis. Groundglass/nodular opacity in the right anterior mid lower lobe. 02/16/2022. Cycle 4 of Lurbinectedin. 02/17/2022. MRI of the brain. Overall significant progression of intracranial metastatic disease compared to 10/08/2021. These lesions show mild surrounding edema. There is no hemorrhage, midline shift, or evidence of acute ischemia. 03/25/2022. Status post completion of SBRT to 9 lesions of the brain. He received 3000 cGy. 03/17/2022. Lurbinectedin cycle 5. 05/23/2022. PET/CT. Posttreatment changes in the left hilum with associated similar mildly increased FDG uptake, likely representing posttreatment changes. Suggested close attention on follow-up. Interval further increase in size of left adrenal mass with persistent elevated moderate FDG uptake, concerning for progressive metastatic disease. Adrenal mass previously was 4.8 x 3.4. This now measures 6.5 x 4.2 cm. 06/01/2022. Follow-up with medical oncology. Options discussed. Patient has decided to be followed clinically. He was in agreement with referred to radiation oncology for treatment of the adrenal mass. 06/09/2022. Radiation oncology follow-up. Patient has completed PET/CT. He has an enlarging adrenal mass. He has ongoing issues with intermittent nausea. He has medications available. He has a long history of low back pain for which she is on a regimen of medications for pain. He does have some discomfort across the upper abdomen. He denies any pain in the central area of the back. He has been referred to our office to discuss treatment to the enlarging adrenal mass. 07/15/2022. Status post completion of radiation therapy to the left adrenal mass. He received 3000 cGy utilizing stereotactic body radiation therapy. Development headaches and feeling off balance. Difficulty with walking. 09/08/2022. Presentation to the emergency room. 09/08/2022. Brain MRI. IMPRESSION: 1. Overall marked progression of multifocal intracranial metastatic disease as compared to 02/17/2022 with approximately 20 lesions identified. 2. These lesions show significant surrounding edema, greatest involving the bell and the right aspect of the cerebellum. 3. There is hemosiderin deposition and faint T1 hyperintensity within several of these lesions suggesting blood products/hemorrhagic metastases. 4. There is no midline shift, evidence of acute ischemia, or evidence of obstructive hydrocephalus. 5. Diffuse white matter abnormality is likely related to previous radiation treatment. 6. Large mass effusions. 09/08/2022. Hospital admission due to neurologic symptoms with initiation of dexamethasone. Allergies Allergy/AdvReac Type Severity Reaction Status Date / Time fluticasone Allergy Severe throat and Verified 09/08/22 16:05 tongue swelling lisinopril Allergy Severe THROAT & Verified 09/08/22 16:05 TONGUE SWELLED salmeterol Allergy Intermediate throat and Verified 09/08/22 16:05 tongue swelling morphine AdvReac Severe Migraine Verified 09/08/22 16:05 Home Medications Medication Instructions Recorded Confirmed Type finasteride 5 mg tablet 5 mg PO DAILY #30 tabs 05/13/20 09/08/22 Rx acetaminophen 500 mg tablet 500 mg PO Q6H PRN Pain 08/20/20 09/08/22 History atorvastatin 40 mg tablet 40 mg PO QPM 08/20/20 09/08/22 History ondansetron HCl 8 mg tablet 8 mg PO Q8H PRN Nausea 09/14/20 09/08/22 History prochlorperazine maleate 10 mg 10 mg PO Q6H PRN Nausea 09/14/20 09/08/22 History tablet (Compazine) gabapentin 600 mg tablet 600 mg PO TID 10/13/20 09/08/22 History potassium chloride 20 mEq 20 meq PO TID 11/03/20 09/08/22 History tablet,extended release guaifenesin 600 mg tablet, 600 mg PO Q12 #10 tabs 12/01/21 09/08/22 Rx extended release 12 hr (Mucinex) meclizine 25 mg tablet 25 mg PO TID PRN Dizziness 06/09/22 09/08/22 History omeprazole 20 mg capsule,delayed 20 mg PO DAILY 06/09/22 09/08/22 History release pseudoephedrine HCl 120 mg 120 mg PO Q12H 06/09/22 09/08/22 History tablet,extended release fluticasone fur. 200 mcg-umeclid 1 inh inhalation DAILY 07/15/22 09/08/22 History 62.5 mcg-vilant 25 mcg inhalat.powder (Trelegy Ellipta) famotidine 10 mg tablet (Pepcid AC) 10 mg PO BID PRN Heartburn 09/08/22 09/08/22 History dexamethasone 4 mg tablet 4 mg PO Q6H #40 tabs 09/09/22 Rx Patient History Medical History (Updated 09/09/22 @ 11:27 by Vero Hinojosa, JOSÉ) Arthritis Asthma BPH (benign prostatic hyperplasia) Cholelithiases Chronic back pain CKD (chronic kidney disease), stage III COPD (chronic obstructive pulmonary disease) Depression Dyslipidemia Erectile dysfunction Essential hypertension GERD (gastroesophageal reflux disease) controlled Hematuria History of nicotine dependence History of renal calculi Hyperlipidemia Hyperparathyroidism Kidney stone on left side Lumbar spinal stenosis Obesity Osteoarthritis of shoulders, bilateral PSVT (paroxysmal supraventricular tachycardia) Pulmonary emphysema Sciatica Sleep apnea CPAP HS + 1L O2 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 Tobacco use Type 2 diabetes mellitus NIDDM Umbilical hernia Vitamin D deficiency Surgical History Fusion of spine LUMBAR X 2 H/O parathyroidectomy History of arthroscopy LEFT KNEE History of bronchoscopy (07/23/20) Fine Needle Aspiration History of colonoscopy (11/19/12) History of colonoscopy (07/12/17) History of cystoscopy Left ureteroscopy, basket stone, cystoscopy, left stent exchange: 11/09/16: LMA#5 atraumatic History of neck surgery NERVE BLOCK FOR HEADACHES Repair of umbilical hernia (07/28/10) S/P laminectomy S/P parathyroidectomy S/P umbilical hernia repair, follow-up exam Status post cholecystectomy Status post lumbar spinal fusion Family History Father , Passed Age 73 Heart disease Hypertension Mother , Passed Age 57 Heart disease Hypertension Lung disease Sister Breast cancer Sister No problems noted. Uncle Throat cancer Aunt Bone cancer Sister , Passed Age 40 due to Lung Cancer Lung cancer Brother No problems noted. Son No problems noted. Son No problems noted. Son No problems noted. Social History Smoking Status: Current every day smoker Tobacco Type: Cigarettes packs per day: 2; Cigarettes Per Day: 35; Second Hand Exposure: No; Do You Dip or Chew Tobacco: No; Tobacco Cessation Education Requested by Patient: No Hx Alcohol Use: No Hx Substance Use: No Preferred Language: Jordanian Communication Ability: Effective Visual Impairment: No Limitations Hearing Ability: Normal Customer Advisor Required: No Beliefs That Will Affect Care: None marital status: Current Living Situation: Spouse Current Living Situation Comment: Spouse and grandchild current occupational status: disabled How many Children do You have: 3 Other Information That Helps Us Care for You: No Feels Safe at Home: Yes Safety Concerns: Feels Safe At This Time Diet: regular caffeine: Yes (12 cups per day) during the past year weight has: remained stable Dental Care, Regularly: No Physical Activity Frequency: Does not Exercise Assistive Devices: Cane, Walker and Wheelchair Radiation History DIAGNOSIS: Metastatic small cell carcinoma. Initially diagnosed with limited stage disease. TREATMENT: 08/24/2020. Initiation of 2 cycles of chemotherapy. 09/14/2020. Initiation of combined radiation and chemotherapy. Chemotherapy continued with etoposide and carboplatin. 10/07/2020. Chemotherapy stopped due to low counts. 10/16/2020. Radiation stopped due to progression of disease. He received 4800 cGy. 24 fractions completed of a planned 35. 01/19/2021. Status post completion of radiation of whole brain palliative radiation therapy. He received 3000 cGy. 05/31/2021. Restart of systemic treatment with etoposide and carboplatin. Tecentriq. 11/12/2021. Status post completion of radiation therapy with SBRT. 4 lesions treated. He received 3000 cGy 02/16/2022. Cycle 4 of Lurbinectedin. 03/25/2022. Status post completion of SBRT radiation therapy to 9 lesions of the brain. He received 3000 cGy. 05/2022. All systemic therapy held temporarily. Discussed with medical oncology. 05/23/2022. PET/CT. Enlarging left adrenal mass. 07/15/2022. Status post completion of radiation therapy to the left adrenal mass. He received 3000 cGy utilizing SBRT. Physical Exam Constitutional: WD/WN, vitals as above + obese Eyes: PERRL, conjunctivae normal, anicteric sclerae ENMT: Ears: no hearing impairment Neck: trachea midline, no thyromegaly Respiratory: no respiratory distress Auscultation: + wheezes (Wheezing is noted especially in the lower lung mandujano.) Cardiovascular: RRR, no murmur, no edema Gastrointestinal (Abdomen): normal bowel sounds, soft, nontender, no hepatosplenomegaly Skin: no rashes, warm and dry Neurologic: PERRL, EOMI, accommodation nl, no face palsy, no dysarthria Gait: + ataxic gait Normal strength and coordination of upper and lower extremities. Psychiatric: A+Ox3, euthymic affect Lymphatic: no cervical or axillary lymphadenopathy Results (Rad Onc) Imaging Studies: were reviewed and pertinent findings noted in HPI Time Spent Midlevel I spent [15] minutes in preparation for this follow up evaluation including reviewing all the clinical records, reviewing laboratory studies, pathology reports and imaging results. I spent [20] minutes with direct face to face interaction with the patient and/or family including performing a physical exam and answering all questions. I spent [10] minutes documenting this patient's visit. Attending I spent 10 minutes in preparation for this follow up evaluation including reviewing all the clinical records, reviewing laboratory studies, pathology reports and imaging results. I spent 15 minutes with direct face to face interaction with the patient and/or family including performing a physical exam and answering all questions. I spent 10 minutes documenting this patient's visit. PG Care Time/CCT Total # of Minutes Spent Total Time Spent with Patient: Total time spent is greater than 50% in coordination of care (as documented) at patient's floor/unit and/or counseling patient: Coding Level of Care Code 94373 INT INP/OBS CARE 3/75MIN Diagnoses Lung cancer metastatic to brain C34.90; C79.31
[2022-09-09] MEDS ORDERED: FINASTERIDE 5 MG TAB PO SCH (09:00)
[2022-09-09] MEDS ORDERED: NON-FORMULARY MEDICATION (Fluticasone-Umeclidin-Vilanter [Trelegy Ellipta] 200-62.5-25 mcg INH SCH (09:00)
[2022-09-09] MEDS ORDERED: UMECLIDINIUM/VILANTEROL 62.5/25MCG 7 PUFFS/INHALER INH SCH (09:00)
[2022-09-09] MEDS ORDERED: PANTOprazole 40 MG TAB PO SCH (09:00)
[2022-09-09] MEDS ORDERED: FLUTICASONE FUROATE 200MCG 14 PUFFS/INHALER INH SCH (09:00)
--- NOTE | 2022-09-09 11:29 | Palliative Care Consultation ---
Date of Consultation September 09, 2022 Assessment & Plan (1) Confusion: MRI brain 09/08/22: worsening progression with over 20 lesions, significant edema involving the bell and the right aspect of the cerebellum. There is hemosiderin deposition and faint T1 hyperintensity within several of these lesions suggesting blood products/hemorrhagic metastases. There is no midline shift, evidence of acute ischemia, or evidence of obstructive hydrocephalus. Diffuse white matter abnormality is likely related to previous radiation treatment. Large mass effusions. (2) Weakness generalized: (3) Altered mental status: (4) Cancer related pain: (5) Dyspnea and respiratory abnormalities: (6) Palliative care by specialist: Met with pt/family. Provided overview of Palliative Medicine, a subspecialty that provides specialized medical care for people living with a serious illness by offering a focus on quality of life. Palliative Medicine is often conflated with hospice: I advised patient/family that Palliative and hospice can be partners but we are not the same. It is important to understand the difference so that we may be informed, and not afraid. Palliative Medicine works to improve QOL through reduction of symptom burden/more control over their illness, for both the patient and family. Palliative medicine clinicians are board certified, specially-trained and another member of the patient's medical care team. We often provide an extra layer of support because our care is based on the needs of the patient, not the prognosis; as such, it's appropriate at any age/advancing stage of a serious illness and can be provided along with curative treatment. Palliative Medicine clinicians are also trained in advanced communication methodologies, to facilitate complex discussions about advanced illness planning, which are needed to help assure that the treatment choices match the patient's goals, aka delivering Goal Concordant care. Finally, we discussed that hospice is a visiting nurse service that focuses on care delivered at the very end of life for patients with terminal illness, with life expectancy less than 6 month. (7) Advanced care planning/counseling discussion: a 45min face to face ACP discussion was held with pt and later joined by son Franklyn. We discussed the goals of hospice as a patient service and the goals of care; we discussed EOL trajectories and transitions rowena the emotional impact of realizing mortality as a concrete reality from prior abstract considerations. Pt was reassured that no matter where they are along this trajectory, they are not alone - their medical team will remain by their side through their journey. Discussed the pros/cons of accepting help when especially weakened and distressed by pain-which would also help provide relief/decrease caregiver burden/strain. I advised hospice would not begin until after RT is done. She was told he would have 1-3 sessions, to be determined. I provided education about the hospice benefit: an interdisciplinary program offered by nurses, nurses aides, social workers, chaplains and a medical specialist for patients with a terminal condition and a life expectancy of less than 6 months. This is covered by Medicare at 100%/no out of pocket expense to patient and all meds/supplies needed by patient for the reason they are on hospice are paid for/covered by hospice. The goal is assure quality of life of the patient in their home setting (home, alf, inpatient hospice setting) by providing symptoms management, psychosocial and spiritual support. However, they cannot offer 24 hours care and if the family is unable to provide that care, they will have to consider personal care with out of pocket cost vs. alf placement. We discussed the goals of hospice as a patient service and the goals of care; we discussed EOL trajectories and transitions rowena the emotional impact of realizing mortality as a concrete reality from prior abstract considerations. Pt was reassured that no matter where they are along this trajectory, they are not alone - their medical team will remain by their side through their journey. Discussed the pros/cons of accepting help when especially weakened and distressed by pain-which would also help provide relief/decrease caregiver burden/strain. Franklyn asked about PT. We discussed reasons why pt cannot engage, as his brain mets caused him to lose mobility, fall frequently and per , no longer walk or make transfers on his own. She assists with all his physical needs. She says they want to go home with hospice, she is primary caregiver. They have 2 sons who are nearby. She says they can help if needed. I encouraged them to speak as a family and work out a schedule, because she will not be able to do everything physically, emotionally, psychologically on her own 29/08. She will need time for her own self care/rest/sleep. She verbalized understanding and states they will work on this as a family. We spoke about changes pt may move through in the dying process including but n ot limited to sleeping more, disorientation when awake, restlessness, diminished senses/inability to respond to stimulus although ability to be aware of them remains intact longer, changes in body temperatures, skin changes/mottling/cyanosis, respiratory pattern changes, oral secretions. Family verbalized understanding. The goal is to assure a peaceful . They do not have a hospice agency preference. I have updated nursing and CM. They will need hospice referral before dc, with admission to be done after RT is done. (8) Lung cancer metastatic to brain: (9) CKD (chronic kidney disease), stage III: (10) Small cell lung cancer: (11) PSVT (paroxysmal supraventricular tachycardia): (12) Sleep apnea: Plan * They would like home hospice, once RT is done. * CM and nursing aware * Patient and family desire dc home today/primary team is aware. * TS 75min Thank you for allowing us to participate in the ongoing care of this patient. Please don't hesitate to call or page with any additional concerns. Dr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 Patient has underwent various bouts of chemotherapy with etoposide and carboplatin, acetazolamide and radiation treatments to both the brain and left adrenal mass. Most recently he had a PET scan completed on 09/06/2022 showing an enlarging adrenal mass now measures 4.9 x 3.6 cm. per admitting notes: "MRI brain today reviewed personally, completed due to progressive weakness, imbalance, and inability to walk. He previously had MRI brain done on 02/17/22 and had 10 lesions seen there as evidence of multifocal intracranial metastatic disease. Largest lesion on the left cerebellar hemisphere. There was mild edema and no hemorrhage at that point. Today there is worsening progression with over 20 lesions, significant edema involving the bell and the right aspect of the cerebellum. There is hemosiderin deposition and faint T1 hyperintensity within several of these lesions suggesting blood products/hemorrhagic metastases. There is no midline shift, evidence of acute ischemia, or evidence of obstructive hydrocephalus. Diffuse white matter abnormality is likely related to previous radiation treatment. Large mass effusions. - Cerebellar involvement will likely affect his balance and cause worsened ability to walk, he is able to move his legs, no signs of cauda equina syndrome - Follows with oncology with Dr. Goldstein- recommends Dexamethasone po 8 mg Q8H while he is here - started in the Er - Consult radiation onc here for palliative tx - Has seen Melina Navarro and Dr. Miller previously for xrt - Consult palliative medicine - Discussion held with pt and at bedside and he is agreeable to staying overnight as prior was adamant about leaving earlier. Pt is interested in discussion with palliative care and possible transition to hospice so "I don't have to come back and stay in the hospital". He is interested in symptom management versus more workup and pursuing treatment. Pt reports he is DNR/DNI." Excellent oncology hx summary from [facility] Rad Onc Consult Note of 09/09/22 as follows: "06/10/2020. Patient switched care from previous inseam leveler to Dr. Goldstein. Dr. Goldstein recommended CT of Chest. 07/02/2020. CT of chest. IMPRESSION: 1. Left upper lobe lobulated lung mass. Prevascular and AP window adenopathy/mass.Highly suspicious nodule(s). Consider non-emergent PET/CT, or tissue sampling.(Reference: Ashlie) 2. Left adrenal nodule measuring 14 mm. This could also be evaluated with PET-CT. 3. Probable left renal cysts. Recommend correlation with renal ultrasound. 07/15/2020. PET/CT. IMPRESSION: 1. Emphysema and old granulomatous disease in the thorax.1.7 (CC) x 1.4 (AP) x 1.6 (TV) cm partially calcified metabolically- active nodule within the apicoposterior left upper lobe, primary lung malignancy versus granulomatous disease. Further evaluation can be obtained with CT-guided biopsy. 2. Metabolically-active partially calcified lymphadenopathy within the left hilum, AP window and prevascular region (centrally necrotic), lymph node metastases versus granulomatous disease. Further evaluation can be obtained with bronchoscopy and biopsy. 07/23/2020. Bronchoscopy with EBUS FNA by Dr. Rory Goldstein. Biopsies of 4L, 11L were positive for small cell lung carcinoma. 08/13/2020. Medical oncology consultation with Dr. Goldstein. Recommendation is for concurrent carboplatin/etoposide with radiation therapy. 10/16/2020. Radiation stopped due to progression of disease. He received 4800 cGy. 24 fractions completed of a planned 35. 11/16/2020. Chest CT. Improvement of left lower lobe nodule and left hilar lymphadenopathy. Near complete resolution of previously identified consolidative opacities within the lung bases. 12/29/2020. Brain MRI. This was obtained prior to treating with prophylactic cranial radiation. This unfortunately revealed interval development of multiple scattered subcentimeter enhancing nodules seen within the brain consistent with intracranial metastatic disease. Patient therefore went on to have palliative radiation therapy to the brain. 01/19/2021. Status post completion of radiation of whole brain palliative radiation therapy. He received 3000 cGy. 01/25/2021. PET/CT. Positive response to therapy with near resolution of the FDG avid mass in the AP window/suprahilar margin on the left as well as the left upper lobe FDG avid nodule. Residual activity secondary to minimal residual neoplasm or inflammation from radiation. 05/05/2021. PET/CT. Interval development of metabolically active bilateral adrenal metastasis. 1.7 cm on the right and 3.9 cm on the left. Decrease in size of 0.6 cm apicoposterior left upper lobe lesion. Decrease in metabolic activity of calcified mediastinal lymph node. No pelvis metastasis. No osseous metastasis. 05/31/2021. Restart of systemic treatment with etoposide, carboplatin and Tecentriq. 07/06/2021. Brain MRI. No evidence of intracranial metastasis. 09/21/2021. PET/CT. Posttreatment changes of the left hilum. No focal activity of recurrence. Similar size but increased activity and a hypermetabolic left adrenal metastasis. 10/08/2021. MRI of the brain. 4 new enhancing subcentimeter lesions within the brain. Consistent with progression of intracranial metastatic disease. 11/12/2021. Status post completion of radiation therapy with SBRT. 4 lesions treated in 3 separate areas.. He received 3000 cGy 11/19/2021. Initiation of Lurbinectedi. 02/08/2022. PET/CT. Posttreatment change of the left hilum and mild metabolic activity slightly above the blood pool. There is no focal metabolic activity to suggest local recurrence. Interval increase in size but slightly decreased in activity FDG avid left adrenal metastasis. Groundglass/nodular opacity in the right anterior mid lower lobe. 02/16/2022. Cycle 4 of Lurbinectedin. 02/17/2022. MRI of the brain. Overall significant progression of intracranial metastatic disease compared to 10/08/2021. These lesions show mild surrounding edema. There is no hemorrhage, midline shift, or evidence of acute ischemia. 03/25/2022. Status post completion of SBRT to 9 lesions of the brain. He received 3000 cGy. 03/17/2022. Lurbinectedin cycle 5. 05/23/2022. PET/CT. Posttreatment changes in the left hilum with associated similar mildly increased FDG uptake, likely representing posttreatment changes. Suggested close attention on follow-up. Interval further increase in size of left adrenal mass with persistent elevated moderate FDG uptake, concerning for progressive metastatic disease. Adrenal mass previously was 4.8 x 3.4. This now measures 6.5 x 4.2 cm. 06/01/2022. Follow-up with medical oncology. Options discussed. Patient has decided to be followed clinically. He was in agreement with referred to radiation oncology for treatment of the adrenal mass. 06/09/2022. Radiation oncology follow-up. Patient has completed PET/CT. He has an enlarging adrenal mass. He has ongoing issues with intermittent nausea. He has medications available. He has a long history of low back pain for which she is on a regimen of medications for pain. He does have some discomfort across the upper abdomen. He denies any pain in the central area of the back. He has been referred to our office to discuss treatment to the enlarging adrenal mass. 07/15/2022. Status post completion of radiation therapy to the left adrenal mass. He received 3000 cGy utilizing stereotactic body radiation therapy. Development headaches and feeling off balance. Difficulty with walking. 09/08/2022. Presentation to the emergency room. 09/08/2022. Brain MRI. IMPRESSION: 1. Overall marked progression of multifocal intracranial metastatic disease as compared to 02/17/2022 with approximately 20 lesions identified. 2. These lesions show significant surrounding edema, greatest involving the bell and the right aspect of the cerebellum. 3. There is hemosiderin deposition and faint T1 hyperintensity within several of these lesions suggesting blood products/hemorrhagic metastases. 4. There is no midline shift, evidence of acute ischemia, or evidence of obstructive hydrocephalus. 5. Diffuse white matter abnormality is likely related to previous radiation treatment. 6. Large mass effusions. 09/08/2022. Admission with initiation of dexamethasone." Radiation History DIAGNOSIS:Metastatic small cell carcinoma. Initially diagnosed with limited stage disease. TREATMENT: 08/24/2020. Initiation of 2 cycles of chemotherapy. 09/14/2020. Initiation of combined radiation and chemotherapy. Chemotherapy continued with etoposide and carboplatin. 10/07/2020. Chemotherapy stopped due to low counts. 10/16/2020. Radiation stopped due to progression of disease. He received 4800 cGy. 24 fractions completed of a planned 35. 01/19/2021. Status post completion of radiation of whole brain palliative radiation therapy. He received 3000 cGy. 05/31/2021. Restart of systemic treatment with etoposide and carboplatin. Tecentriq. 11/12/2021. Status post completion of radiation therapy with SBRT. 4 lesions treated. He received 3000 cGy 02/16/2022. Cycle 4 of Lurbinectedin. 03/25/2022. Status post completion of SBRT radiation therapy to 9 lesions of the brain. He received 3000 cGy. 05/2022. All systemic therapy held temporarily. Discussed with medical oncology. 05/23/2022. PET/CT. Enlarging left adrenal mass. 07/15/2022. Status post completion of radiation therapy to the left adrenal mass. He received 3000 cGy utilizing SBRT. Pt and seen bedside. Pt is drifting in and out of sleep, does not engage with me through the visit. states he went for rad onc planning visit then returned to room and has been tired/sleepy. she asks I do not wake or disturb him as his mood has been irritable and he wants to go home. She states they were told he could not leave until they spoke with me. states she and pt have made decision to have RT for relief of brain mets related symptom but no other cancer directed care, they do not want to return to the hospital. Their son Franklyn joined us about [facility]. He had several ques tions about PT Allergies Allergy/AdvReac Type Severity Reaction Status Date / Time fluticasone Allergy Severe throat and Verified 09/08/22 16:05 tongue swelling lisinopril Allergy Severe THROAT & Verified 09/08/22 16:05 TONGUE SWELLED salmeterol Allergy Intermediate throat and Verified 09/08/22 16:05 tongue swelling morphine AdvReac Severe Migraine Verified 09/08/22 16:05 Home Medications Medication Instructions Recorded Confirmed Type finasteride 5 mg tablet 5 mg PO DAILY #30 tabs 05/13/20 09/08/22 Rx acetaminophen 500 mg tablet 500 mg PO Q6H PRN Pain 08/20/20 09/08/22 History atorvastatin 40 mg tablet 40 mg PO QPM 08/20/20 09/08/22 History ondansetron HCl 8 mg tablet 8 mg PO Q8H PRN Nausea 09/14/20 09/08/22 History prochlorperazine maleate 10 mg 10 mg PO Q6H PRN Nausea 09/14/20 09/08/22 History tablet (Compazine) gabapentin 600 mg tablet 600 mg PO TID 10/13/20 09/08/22 History potassium chloride 20 mEq 20 meq PO TID 11/03/20 09/08/22 History tablet,extended release guaifenesin 600 mg tablet, 600 mg PO Q12 #10 tabs 12/01/21 09/08/22 Rx extended release 12 hr (Mucinex) meclizine 25 mg tablet 25 mg PO TID PRN Dizziness 06/09/22 09/08/22 History metoprolol succinate 50 mg 25 mg PO DAILY 06/09/22 09/08/22 History tablet,extended release 24 hr omeprazole 20 mg capsule,delayed 20 mg PO DAILY 06/09/22 09/08/22 History release pseudoephedrine HCl 120 mg 120 mg PO Q12H 06/09/22 09/08/22 History tablet,extended release fluticasone fur. 200 mcg-umeclid 1 inh inhalation DAILY 07/15/22 09/08/22 History 62.5 mcg-vilant 25 mcg inhalat.powder (Trelegy Ellipta) famotidine 10 mg tablet (Pepcid AC) 10 mg PO BID PRN Heartburn 09/08/22 09/08/22 History Patient History Medical History (Updated 09/09/22 @ 11:27 by Vero Hinojosa DNP) Arthritis Asthma BPH (benign prostatic hyperplasia) Cholelithiases Chronic back pain CKD (chronic kidney disease), stage III COPD (chronic obstructive pulmonary disease) Depression Dyslipidemia Erectile dysfunction Essential hypertension GERD (gastroesophageal reflux disease) controlled Hematuria History of nicotine dependence History of renal calculi Hyperlipidemia Hyperparathyroidism Kidney stone on left side Lumbar spinal stenosis Obesity Osteoarthritis of shoulders, bilateral PSVT (paroxysmal supraventricular tachycardia) Pulmonary emphysema Sciatica Sleep apnea CPAP HS + 1L O2 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 Tobacco use Type 2 diabetes mellitus NIDDM Umbilical hernia Vitamin D deficiency Surgical History Fusion of spine LUMBAR X 2 H/O parathyroidectomy History of arthroscopy LEFT KNEE History of bronchoscopy (07/23/20) Fine Needle Aspiration History of colonoscopy (11/19/12) History of colonoscopy (07/12/17) History of cystoscopy Left ureteroscopy, basket stone, cystoscopy, left stent exchange: 11/09/16: LMA#5 atraumatic History of neck surgery NERVE BLOCK FOR HEADACHES Repair of umbilical hernia (07/28/10) S/P laminectomy S/P parathyroidectomy S/P umbilical hernia repair, follow-up exam Status post cholecystectomy Status post lumbar spinal fusion Family History Father , Passed Age 73 Heart disease Hypertension Mother , Passed Age 57 Heart disease Hypertension Lung disease Sister Breast cancer Sister No problems noted. Uncle Throat cancer Aunt Bone cancer Sister , Passed Age 40 due to Lung Cancer Lung cancer Brother No problems noted. Son No problems noted. Son No problems noted. Son No problems noted. Social History Smoking Status: Current every day smoker Tobacco Type: Cigarettes packs per day: 2; Cigarettes Per Day: 35; Second Hand Exposure: No; Do You Dip or Chew Tobacco: No; Tobacco Cessation Education Requested by Patient: No Hx Alcohol Use: No Hx Substance Use: No Preferred Language: Pashto Communication Ability: Effective Visual Impairment: No Limitations Hearing Ability: Normal Global Transportation Manager Required: No Beliefs That Will Affect Care: None marital status: Current Living Situation: Spouse Current Living Situation Comment: Spouse and grandchild current occupational status: disabled How many Children do You have: 3 Other Information That Helps Us Care for You: No Feels Safe at Home: Yes Safety Concerns: Feels Safe At This Time Diet: regular caffeine: Yes (12 cups per day) during the past year weight has: remained stable Dental Care, Regularly: No Physical Activity Frequency: Does not Exercise Assistive Devices: Cane and CPAP Review of Systems Review of Systems: Unobtainable due to cognitive status Physical Exam Physical Exam: Pt is sleeping, has been intermittently confused per family, irritable at times. asks I do not disturb or attempt to wake him up, would like exam deferred. Results & Data Vital Signs (Past 12 Hours) Vital Signs Temp Pulse Resp BP Pulse Ox Pulse Ox O2 Del Method 09/09/22 08:00 97 09/09/22 07:37 36.4 C L 77 16 110/72 97 Room Air O2 Del Method 09/09/22 08:00 Room Air 09/09/22 07:37 Laboratory Results data reviewed Diagnostic Findings data reviewed PG Care Time/CCT Total # of Minutes Spent Total Time Spent: 75 Total Time Spent with Patient: Total time spent is greater than 50% in coordination of care (as documented) at patient's floor/unit and/or counseling patient: I spent 75 minutes overall addressing this case: 15 in medical data review/discussion with referring provider(s) and/or preparation for the visit 5 in direct interaction with the patient 45 Advance Care Planning/Goals of Care discussions as detailed above in note (must be >16min) 5 in subsequent review and synthesis of assessment and plan 5 in communicating with other providers regarding the patient's case: [] Advanced Care Planning 25041 Advanced Care Planning 30 Min 04542 Advanced Care Planning Additional 30 [place] [address] IN/OBS CONSULT LVL 5,80M Patient Type New History Comprehensive Exam Problem Focused Medical Decision Making High Complexity Diagnoses Confusion R41.0 Weakness generalized R53.1 Altered mental status R41.82 Cancer related pain G89.3 Dyspnea and respiratory abnormalities R06.00; R06.89 Palliative care by specialist Z51.5 Advanced care planning/counseling discussion Z71.89 Lung cancer metastatic to brain C34.90; C79.31 CKD (chronic kidney disease), stage III N18.30 Small cell lung cancer C34.90 PSVT (paroxysmal supraventricular tachycardia) I47.1 Sleep apnea G47.30 Additional Codes Advanced Care Planning - 10781 Advanced Care Planning 30 Min: 55570 Advanced C are Planning 30 Min ([id number]) Advanced Care Planning - 02274 Advanced Care Planning Additional 30 Min: 15589 Advanced Care Planning Additional 30 Min ([id number])
--- NOTE | 2022-09-09 13:47 | Hospitalist Progress Note ---
Date of Service September 09, 2022 Assessment & Plan (1) Small cell lung cancer: Plan: Received 2 cycles of chemo and then chemo and radiation following diagnosis Radiation was stopped due to progression of disease and chemotherapy was stopped due to low blood counts He was noted to have brain metastasis and received whole brain radiation treatment Was admitted with generalized weakness and feeling unwell and progressive decline Was advised to have palliative radiation treatment and also palliative care consult Appreciate palliative input and recommendation for hospice care at home He will be discharged home this afternoon (2) Brain metastasis: Plan: MRI did show cerebellar involvement and likely cause of his inability to walk Appreciate radiation therapy input and recommendation He has had scan today for future radiation treatment by the radiation oncology department He can be discharged home today as per the radiation oncologist (3) Metastasis to adrenal gland: Plan: Admitted to medical floor Notes from admitting physician as below: -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 Patient has underwent various bouts of chemotherapy with etoposide and carboplatin, acetazolamide and radiation treatments to both the brain and left adrenal mass. Most recently he had a PET scan completed on 09/06/2022 showing an enlarging adrenal mass now measures 4.9 x 3.6 cm. - MRI brain today reviewed personally, completed due to progressive weakness, imbalance, and inability to walk. He previously had MRI brain done on 02/17/22 and had 10 lesions seen there as evidence of multifocal intracranial metastatic disease. Largest lesion on the left cerebellar hemisphere. There was mild edema and no hemorrhage at that point. Today there is worsening progression with over 20 lesions, significant edema involving the bell and the right aspect of the cerebellum. There is hemosiderin deposition and faint T1 hyperintensity within several of these lesions suggesting blood products/hemorrhagic metastases. There is no midline shift, evidence of acute ischemia, or evidence of obstructive hydrocephalus. Diffuse white matter abnormality is likely related to previous radiation treatment. Large mass effusions. - Cerebellar involvement will likely affect his balance and cause worsened ability to walk, he is able to move his legs, no signs of cauda equina syndrome - Follows with oncology with Dr. Goldstein- recommends Dexamethasone po 8 mg Q8H while he is here - started in the Er - Consult radiation onc here for palliative tx - Has seen Melina Navarro and Dr. Miller previously for xrt - Consult palliative medicine - Discussion held with pt and at bedside and he is agreeable to staying overnight as prior was adamant about leaving earlier. Pt is interested in discussion with palliative care and possible transition to hospice so "I don't have to come back and stay in the hospital". He is interested in symptom management versus more workup and pursuing treatment. Pt reports he is DNR/DNI. 09/09/2022 Has been feeling much better without any acute distress and/or symptoms Catherine generally weak and lethargic Had been to radiation treatment today and was seen by palliative care Remains stable to be discharged He will be discharged home with home hospice (4) Bradycardia: Plan: - Pulse in 50s since arrival, does not appear this has occurred before. Pt is on atenolol 25 mg daily at home, may require some adjustments prior to discharge. Will hold at this time, may be able to resume with am meds. Pt asymptomatic currently, reports some intermittent dizziness at home and was utilizing meclizine previously, no use recently - Hgb is stable - Checking an EKG stat - Bp of 156/85 -No more bradycardia (5) CKD (chronic kidney disease), stage III: Plan: - Chronic, stable with Cr. 1.19 today which is his baseline -Creatinine remains stable at 1.37 (6) Tobacco use: Plan: - Chronic use, He has smoked 2 packs/day for 50+ years - Nicotine patch ordered, encouraged smoking cessation at bedside DVT ppx: teds, scds no chemical ppx in the setting of hemorrhagic brain lesions CODE: DNR/DNI Dispo: From home, likely to remain in the hospital x 1-2 days Discussed with the family members and the patient He will be discharged home this afternoon with home hospice Admission and Anticipated Discharge Date Admission Date: September 08, 2022 Subjective 09/09/2022 The patient was seen and examined in medical floor in presence of the and the son He has been stable and is status post radiation treatment for the lung cancer with mets Has been feeling better without any significant symptoms No pain at rest and no nausea no vomiting and no headache Review of Systems Review of Systems: All systems reviewed and are unremarkable except as noted below Physical Exam Physical Exam: Sitting on a chair without any acute distress Constitutional: well developed, well nourished, + ill appearing and + obese Eyes: PERRL, conjunctivae normal, anicteric sclerae ENMT: external ear and nose normal, oropharynx normal Neck: trachea midline, no thyromegaly Respiratory: no respiratory distress Auscultation: + diminished lung sounds and + crackles (Occasional crackles bilateral) Cardiovascular: Rate/Rhythm: regular rate and regular rhythm; not tachycardic Heart Sounds: normal S1 and normal S2; no murmur Extremities: no edema Gastrointestinal (Abdomen): Inspection/Auscultation: normal bowel sounds; abdomen not distended Percussion/Palpation: abdomen soft; abdomen nontender Musculoskeletal: No acute arthritis involving any joint Neurologic: normal touch/pain/proprioception and moves all extremities; no focal motor deficits Psychiatric: A+Ox3, euthymic affect Lymphatic: no cervical or axillary lymphadenopathy Results & Data Results & Data Vital Signs (Past 12 Hours) Vital Signs Temp Pulse Resp BP Pulse Ox Pulse Ox O2 Del Method 09/09/22 08:00 97 09/09/22 07:37 36.4 C L 77 16 110/72 97 Room Air O2 Del Method 09/09/22 08:00 Room Air 09/09/22 07:37 Laboratory Results Short CBC 09/09/22 Range/Units 06:21 WBC 7.56 (4.8-10.8) K/ul Hgb 12.6 L (14.0-18.0) g/dl Hct 36.1 L (42.0-52.0) % Plt Count 138 (130-400) K/uL BMP 09/09/22 06:21 Sodium 137 Potassium 3.8 Chloride 106 Carbon Dioxide 25 BUN 21 Creatinine 1.37 Glucose 132 H Calcium 9.7 Liver Function 09/09/22 Range/Units 06:21 Total Bilirubin 0.8 (0.2-1.0) mg/dl AST 12 L (13-39) U/L ALT 14 (7-52) U/L Alkaline Phosphatase 99 (34-104) U/L Albumin 4.2 (3.4-5.0) gm/dl Medications Administered Current Inpatient Medications Acetaminophen (Acetaminophen 325 Mg Tab) 650 mg PO Q4H PRN PRN Reason: Moderate Pain (Scale 4, 5, 6) Stop: 10/08/22 17:09 Atorvastatin Calcium (Atorvastatin 40 Mg Tab) 40 mg PO QPM [facility] Stop: 10/08/22 20:59 Last Admin: 09/08/22 20:30 Dose: 40 mg Dexamethasone (Dexamethasone 4 Mg Tab) 8 mg PO Q8H [facility] Stop: 10/08/22 17:59 Last Admin: 09/09/22 09:50 Dose: 8 mg Finasteride (Finasteride 5 Mg Tab) 5 mg PO DAILY [facility] Stop: 10/09/22 08:59 Last Admin: 09/09/22 08:20 Dose: 5 mg Fluticasone Furoate (Fluticasone Furoate 200mcg 14 Puffs/Inhaler) 1 puffs INH DAILY [facility] Stop: 10/09/22 08:59 Last Admin: 09/09/22 08:21 Dose: 1 puffs Gabapentin (Gabapentin 600 Mg Tab) 600 mg PO TID [facility] Stop: 10/08/22 17:44 Last Admin: 09/09/22 08:20 Dose: 600 mg Guaifenesin (Guaifenesin 600 Mg Tabcr) 600 mg PO Q12 [facility] Stop: 10/08/22 20:59 Last Admin: 09/09/22 08:20 Dose: 600 mg Miscellaneous (Remove Nicoderm Patch) 1 each N/A DAILY@0859 [facility] Stop: 10/09/22 08:58 Last Admin: 09/09/22 08:29 Dose: 1 each Ondansetron HCl (Ondansetron Inj 2 Mg/Ml 2 Ml Vial) 4 mg IV Q4H PRN PRN Reason: Nausea And Vomiting Stop: 10/08/22 17:09 Pantoprazole Sodium (Pantoprazole 40 Mg Tab) 40 mg PO DAILY [facility] Stop: 10/09/22 08:59 Last Admin: 09/09/22 08:20 Dose: 40 mg Umeclidinium/Vilanterol (Umeclidinium/Vilanterol 62.5/25mcg 7 Puffs/Inhaler) 1 puffs INH DAILY [facility] Stop: 10/09/22 08:59 Last Admin: 09/09/22 08:21 Dose: 1 puffs
--- NOTE | 2022-09-09 23:06 | Electrocardiogram Report ---
Test Reason : Blood Pressure : / mmHG Vent. Rate : 052 BPM Atrial Rate : 052 BPM P-R Int : 128 ms QRS Dur : 128 ms QT Int : 438 ms P-R-T Axes : 011 008 051 degrees QTc Int : 407 ms Sinus bradycardia Right bundle branch block When compared with ECG of 29-NOV-2021 09:12, Vent. rate has decreased BY 63 BPM Confirmed by Kris King ([id number]) on 09/09/2022 11:06:09 PM Referred By: REFERRED SELF Confirmed By:Kris King
--- NOTE | 2022-09-09 23:17 | Electrocardiogram Report ---
Test Reason : Blood Pressure : / mmHG Vent. Rate : 069 BPM Atrial Rate : 069 BPM P-R Int : 154 ms QRS Dur : 120 ms QT Int : 424 ms P-R-T Axes : 057 001 063 degrees QTc Int : 454 ms Sinus rhythm with marked sinus arrhythmia Right bundle branch block When compared with ECG of 08-Sep-2022 16:25, No significant change Confirmed by Kris King ([id number]) on 09/09/2022 11:16:46 PM Referred By: REFERRED SELF Confirmed By:Kris King
--- NOTE | 2022-09-10 07:21 | Discharge Summary ---
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 He has smoked 2 packs/day for 50+ years. Patient has underwent various bouts of chemotherapy with etoposide and carboplatin, acetazolamide and radiation treatments to both the brain and left adrenal mass. Most recently he had a PET scan completed on 09/06/2022 showing an enlarging adrenal mass. He has had ongoing issues with intermittent nausea, low back pain, upper abdomen pain. Routinely he follows with oncology with Dr. Goldstein. Patient also following with radiation oncology and most recently he was referred to radiation oncology for palliative treatment. Today the patient presents to the hospital with his due to increased imbalance, difficulty walking, fatigue, generalized malaise over the past week and a half. He has been eating and drinking well, but has to take zofran and compazine intermittently for nausea. Pt is still smoking upwards of 2 ppd, and therefore hardly uses the inhalers. Pt denies any respiratory complaints, cardiac complaints, fever, chills or sweats today. At the beginning of our visit, adamantly states that he does not want to stay in the hospital. He is agreeable after conversation about having radiation oncology schedule palliative radiation, as well as palliative care to help get him set up and home, and discuss options for hospice. He and his are raising a grandchild who is 6 years old and he wants to be able to spend time with him. Admission Exam Per Admitting Provider Physical Exam: General: awake, alert, no apparent distress Head: Normocephalic, atraumatic ENT: PERRL, EOMI, no pharyngeal exudate, mucous membranes moist Chest: Faint crackles and expiratory wheeze, on room air, no adventitious breath sounds Cardiac: Bradycardic with HR 58, few PVCs, no murmur, no JVD, normal peripheral pulses, good capillary refill Abdominal: NABS x 4 quadrants, soft, nondistended, nontender to palpation, no rebound or guarding Extremities: Normal inspection, no peripheral edema or erythema, calfs nontender to palpation Psych: Normal mood and affect Neuro: AAO x 3, strength intact bilaterally and rated 4/5 in upper and lower extremities, gait no assessed, no motor deficits, pt can move all extremities, speech is clear, no peripheral sensory deficits Principal Diagnosis Metastatic lung cancer Discharge Exam Sitting on a chair without any acute distress Constitutional well developed, well nourished, + ill appearing and + obese Eyes PERRL, conjunctivae normal, anicteric sclerae ENMT external ear and nose normal, oropharynx normal Neck trachea midline, no thyromegaly Respiratory no respiratory distress Auscultation: + diminished lung sounds and + crackles (Occasional crackles bilateral) Cardiovascular Rate/Rhythm: regular rate and regular rhythm; not tachycardic Heart Sounds: normal S1 and normal S2; no murmur Extremities: no edema Gastrointestinal (Abdomen) Inspection/Auscultation: normal bowel sounds; abdomen not distended Percussion/Palpation: abdomen soft; abdomen nontender Neurologic normal touch/pain/proprioception and moves all extremities; no focal motor deficits Psychiatric A+Ox3, euthymic affect Lymphatic no cervical or axillary lymphadenopathy Discharge Data Allergies Allergy/AdvReac Type Severity Reaction Status Date / Time fluticasone Allergy Severe throat and Verified 09/08/22 16:05 tongue swelling lisinopril Allergy Severe THROAT & Verified 09/08/22 16:05 TONGUE SWELLED salmeterol Allergy Intermediate throat and Verified 09/08/22 16:05 tongue swelling morphine AdvReac Severe Migraine Verified 09/08/22 16:05 Consultations 09/08/22 15:15 ED Decision to Admit Stat 09/08/22 15:30 Consult Palliative Care Routine Consult Radiation Oncology Routine Ordered Studies 09/08/22 11:35 MR brain wo/w con Stat 09/09/22 08:27 CT guide rad therapy head Routine Hospital Course (1) Small cell lung cancer: Received 2 cycles of chemo and then chemo and radiation following diagnosis Radiation was stopped due to progression of disease and chemotherapy was stopped due to low blood counts He was noted to have brain metastasis and received whole brain radiation treatment Was admitted with generalized weakness and feeling unwell and progressive decline Was advised to have palliative radiation treatment and also palliative care consult Appreciate palliative input and recommendation for hospice care at home He will be discharged home this afternoon (2) Brain metastasis: MRI did show cerebellar involvement and likely cause of his inability to walk Appreciate radiation therapy input and recommendation He has had scan today for future radiation treatment by the radiation oncology department He can be discharged home today as per the radiation oncologist (3) Metastasis to adrenal gland: Admitted to medical floor Notes from admitting physician as below: -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 Patient has underwent various bouts of chemotherapy with etoposide and carboplatin, acetazolamide and radiation treatments to both the brain and left adrenal mass. Most recently he had a PET scan completed on 09/06/2022 showing an enlarging adrenal mass now measures 4.9 x 3.6 cm. - MRI brain today reviewed personally, completed due to progressive weakness, imbalance, and inability to walk. He previously had MRI brain done on 02/17/22 and had 10 lesions seen there as evidence of multifocal intracranial metastatic disease. Largest lesion on the left cerebellar hemisphere. There was mild edema and no hemorrhage at that point. Today there is worsening progression with over 20 lesions, significant edema involving the bell and the right aspect of the cerebellum. There is hemosiderin deposition and faint T1 hyperintensity within several of these lesions suggesting blood products/hemorrhagic metastases. There is no midline shift, evidence of acute ischemia, or evidence of obstructive hydrocephalus. Diffuse white matter abnormality is likely related to previous radiation treatment. Large mass effusions. - Cerebellar involvement will likely affect his balance and cause worsened ability to walk, he is able to move his legs, no signs of cauda equina syndrome - Follows with oncology with Dr. Goldstein- recommends Dexamethasone po 8 mg Q8H while he is here - started in the Er - Consult radiation onc here for palliative tx - Has seen Melina Navarro and Dr. Miller previously for xrt - Consult palliative medicine - Discussion held with pt and at bedside and he is agreeable to staying overnight as prior was adamant about leaving earlier. Pt is interested in discussion with palliative care and possible transition to hospice so "I don't have to come back and stay in the hospital". He is interested in symptom management versus more workup and pursuing treatment. Pt reports he is DNR/DNI. 09/09/2022 Has been feeling much better without any acute distress and/or symptoms Catherine generally weak and lethargic Had been to radiation treatment today and was seen by palliative care Remains stable to be discharged He will be discharged home with home hospice (4) Bradycardia: - Pulse in 50s since arrival, does not appear this has occurred before. Pt is on atenolol 25 mg daily at home, may require some adjustments prior to discharge. Will hold at this time, may be able to resume with am meds. Pt asymptomatic currently, reports some intermittent dizziness at home and was utilizing meclizine previously, no use recently - Hgb is stable - Checking an EKG stat - Bp of 156/85 -No more bradycardia (5) CKD (chronic kidney disease), stage III: - Chronic, stable with Cr. 1.19 today which is his baseline -Creatinine remains stable at 1.37 (6) Tobacco use: - Chronic use, He has smoked 2 packs/day for 50+ years - Nicotine patch ordered, encouraged smoking cessation at bedside DVT ppx: kali rossi no chemical ppx in the setting of hemorrhagic brain lesions CODE: DNR/DNI Dispo: From home, likely to remain in the hospital x 1-2 days Discussed with the family members and the patient He will be discharged home this afternoon with home hospice Total Time Total Time Spent Total Time Spent (In Minutes): 35 minutes Discharge Plan Discharge Items Patient Disposition: Home - Home Health Services Reason For Visit: METASTATIC LUNG CANCER Discharge Diagnosis: Metastatic lung cancer Condition on Discharge: Fair Activity: Resume your previous activity Non-emergency contact: Primary Care Provider Call non-emergency contact if: you have any medication questions and your symptoms worsen Follow-up/Referrals: Anibal Donato MD [Primary Care Provider] - Diet: Regular Addtl Attending Provider Instructions: Please take precautions to avoid falls Take your medications as advised Have follow-up appointments with your healthcare providers Pending Studies at Discharge: No Stand-Alone Forms: My [facility] Moleculin, Smoking Cessation Medications and DC Order Prescriptions: New dexamethasone 4 mg tablet 4 mg PO Q6H Qty: 40 0RF Continued atorvastatin 40 mg tablet 40 mg PO QPM acetaminophen 500 mg tablet 500 mg PO Q6H PRN (Reason: Pain) ondansetron HCl 8 mg tablet 8 mg PO Q8H PRN (Reason: Nausea) prochlorperazine maleate [Compazine] 10 mg tablet 10 mg PO Q6H PRN (Reason: Nausea) gabapentin 600 mg tablet 600 mg PO TID potassium chloride 20 mEq tablet extended release 20 meq PO TID omeprazole 20 mg capsule,delayed release(DR/EC) 20 mg PO DAILY pseudoephedrine HCl 120 mg tablet extended release 120 mg PO Q12H Trelegy Ellipta 200-62.5-25 mcg blister with device 1 inh inhalation DAILY finasteride 5 mg tablet 5 mg PO DAILY Qty: 30 1RF guaifenesin [Mucinex] 600 mg Tablet Extended Release 12hr 600 mg PO Q12 Qty: 10 0RF meclizine 25 mg tablet 25 mg PO TID PRN (Reason: Dizziness) famotidine [Pepcid AC] 10 mg Tablet 10 mg PO BID PRN (Reason: Heartburn) Discontinued metoprolol succinate 50 mg tablet extended release 24 hr 25 mg PO DAILY Discharge Orders: Discharge Order (Routine); Ordered 09/09/22 Ordered By: Leslie Stark/Other Patient Handouts: Falls Prevent Outside Admission Data Admit Date/Time: 09/08/22 15:30 Attending Provider: Leslie Landaverde Admit Provider: Dianne Salomon Primary Care Provider: Anibal Donato Other Providers: Dianne Salomon ; Catalina Miller ; Xiomara Diamond Other Interventions: Discharge Summary Assessment (RN) Last Done: 09/09/22 14:09
== END 2022-09-09 14:37 | disposition home health service (06) | DRG 54 ==
LOC: ED 10:31 → 3E 15:30 → SUATTDRO 15:30 → 3E 16:42